=== PATIENT | female | born 1965 | race Caucasian/White ===

== ENCOUNTER → 2017-04-06 | Outpatient (CLI) | payer BC ==
[~2017-04-06] MED LIST: ESTR1TAB24 PO; MAGN400T29 PO; MULT-974 PO; ONDA-42 SL
--- NOTE | 2017-04-07 08:19 | Diagnostic Imaging Report ---
Bilateral screening mammogram 2D views with tomosynthesis The current study was also evaluated with a Computer Aided Detection (CAD) system. Indication: Screening. No current complaints stated on the questionnaire. COMPARISON: 04/04/16. FINDINGS: The breasts are composed of extremely dense parenchyma which may decrease mammographic sensitivity. There are benign-appearing calcifications seen. There is an asymmetry seen along the central aspect of the left cc projection with corresponding tomographic image with an oval lobulated asymmetry measuring 6 mm seen in the central aspect. There are punctate calcifications again seen in the upper aspect of the left breast increased from prior exams which appears to project along the far posterior slightly medial aspect of the left cc projection only partially visualized. IMPRESSION: 1. Extremely dense breasts. 2. Asymmetry along the central aspect of the left cc projection measuring 6 mm. 3. Group of calcifications more prominent compared to prior exams in the upper aspect of the left breast slightly medially along the far posterior aspect. 4. Diagnostic mammogram with magnification views of the calcifications and bilateral ultrasound evaluation is recommended. BI-RADS 0. ACR BI-RADS Category 0: Incomplete. (Needs additional imaging evaluation). Result letter will be mailed to the patient. Note: At least 10% of breast cancer is not imaged by mammography. Dictated by: Dictated on workstation # [id number]
== END ==
LOC: RAD 12:52
PROVIDERS: ATTEND Obstetrics & Gynecology
DX: Z12.31 Encounter for screening mammogram for malignant neoplasm of breast (principal)
CPT/HCPCS: 77067

== ENCOUNTER → 2017-04-11 | Outpatient (CLI) | payer BC ==
--- NOTE | 2017-04-11 08:58 | Diagnostic Imaging Report ---
Left diagnostic mammogram with tomography. COMPARISON: 04/06/2017. INDICATION: Asymmetries along the central aspect of the left CC projection and posterior upper left breast calcifications. FINDINGS: The upper posterior left breast calcifications demonstrate minimal heterogeneity and no definite underlying mass. The asymmetry in the central aspect of the left breast seen on the CC projection is evaluated with focal compression view with no definitive underlying lesion seen. IMPRESSION: Slightly heterogeneity in the group of microcalcifications in the upper posterior aspect of the left breast is seen. Stereotactic biopsy would be recommended. Ultrasound evaluation is pending to check for potential associated mass with the calcifications and to evaluate the rest of the breast dense parenchyma bilaterally. ACR BI-RADS Category 0: Incomplete. (Needs additional imaging evaluation). Result letter will be mailed to the patient. Note: At least 10% of breast cancer is not imaged by mammography. Dictated by: Dictated on workstation # [id number]
--- NOTE | 2017-04-11 10:02 | Diagnostic Imaging Report ---
Bilateral breast ultrasound. INDICATION: Calcifications in the upper aspect of the left breast and asymmetry seen in the central aspect of the left CC projection. Dense breasts. FINDINGS: The four quadrants and the retroareolar region of each breast were scanned. There are simple cysts in the left breast at 1:30 o'clock position, and an 8-mm cyst is seen. There are scattered tiny simple cysts also in the right breast including at 7:30 o'clock position, a 4-mm cyst and a 7-mm cyst at 7 o'clock zone. There is no suspicious mass. IMPRESSION: Scattered bilateral breast cysts. The upper left breast calcifications are slightly concerning given the increase from the previous exam and minimal heterogeneity. Stereotactic biopsy is recommended. The findings and recommendations were explained to the patient. ACR BI-RADS Category 4A: Low suspicion of malignancy. Result letter will be mailed to the patient. Note: At least 10% of breast cancer is not imaged by mammography. Dictated by: Dictated on workstation # [id number]
== END ==
LOC: RAD 07:52
PROVIDERS: ATTEND Obstetrics & Gynecology
DX: N60.11 Diffuse cystic mastopathy of right breast (principal); N60.12 Diffuse cystic mastopathy of left breast; R92.8 Other abnormal and inconclusive findings on diagnostic imaging of breast

== ENCOUNTER → 2017-04-18 | Outpatient (CLI) | payer BC ==
[~2017-04-18] VITALS: Ht 177.8 cm; Wt 77.1 kg
[~2017-04-18] MED LIST changes: +LIDOCAINE 1% INJ 20 ML (XYLOCAINE) VIAL INJ ONE; +LIDOCAINE 1% INJ 20 ML (XYLOCAINE) VIAL ONE; +NS (IVPB) 100 ML ONE
[2017-04-18 10:40] VITALS: BP 134/90
[2017-04-18 11:51] VITALS: BP 128/80
--- NOTE | 2017-04-19 13:31 | Diagnostic Imaging Report ---
EXAMINATION: Vacuum-assisted stereotactic breast biopsy , with clip placement, and specimen radiographs. INDICATION: Left breast calcifications . CONSENT: Informed consent was obtained from the patient. The risks, benefits, potential complications and alternatives were reviewed and all questions answered to the patient's satisfaction. PROCEDURE: The patient is positioned on the stereotactic mammography machine in sitting position. Prior mammograms were reviewed and based on the position of the calcifications, the appropriate the approach is selected. Initial stereotactic mammographic views at -15 and +15 degrees where performed and confirmation of localization of the lesion is performed. The localization is performed with the stereotactic software assistance and confirmed visually to match the area of interest. After satisfactory localization with initial stereotactic mammographic and tomographic images, the biopsy tract approach is selected from lateral to medial with the skin site determined. After sterile preparation and draping, 1% lidocaine was utilized for local anesthesia. After confirming the targeted calcifications along the left breast, multiple vacuum-assisted stereotactic biopsies, with 8-gauge core needles, were performed. The specimen radiograph demonstrates calcifications. Subsequently, a marking clip was placed at the site of the biopsy. Subsequently CC and lateral views mammogram is performed and confirms proper positioning of the clip. The patient tolerated the procedure well with no immediate complications. IMPRESSION: Successful stereotactic vacuum-assisted left breast biopsy for calcifications along the upper. A marking clip was left in place. The specimen radiograph demonstrates the calcifications. Dictated by: Dictated on workstation # [id number]
== END ==
LOC: RAD 10:05
PROVIDERS: ATTEND Surgery
DX: R92.1 Mammographic calcification found on diagnostic imaging of breast (principal)
CPT/HCPCS: 19081

== ENCOUNTER → 2017-10-30 | Outpatient (CLI) | payer BC ==
[~2017-10-30] MED LIST changes: -LIDOCAINE 1% INJ 20 ML (XYLOCAINE) VIAL INJ ONE; -LIDOCAINE 1% INJ 20 ML (XYLOCAINE) VIAL ONE; -NS (IVPB) 100 ML ONE
--- NOTE | 2017-10-30 12:29 | Diagnostic Imaging Report ---
INDICATION: 6 month followup left breast biopsy. COMPARISON: 04/06/2017 and 04/04/2016. TECHNIQUE: Digital diagnostic mammography was performed of the left breast with a Computer Aided Detection (CAD) system. FINDINGS: The left breast is heterogeneously dense limiting the sensitivity of mammography. There is a biopsy clip in the upper outer posterior left breast. There are several remaining punctate calcifications at the biopsy site. The parenchymal pattern is stable. No new mass is seen. No definite malignant-appearing microcalcifications are identified. IMPRESSION: Stable left mammogram postbiopsy. The patient should return in 6 months for bilateral mammography. ACR BI-RADS Category 2: Benign findings. Result letter will be mailed to the patient. Note: At least 10% of breast cancer is not imaged by mammography. Dictated by: Dictated on workstation # [id number]
== END ==
LOC: RAD 09:08
PROVIDERS: ATTEND Obstetrics & Gynecology
DX: R92.8 Other abnormal and inconclusive findings on diagnostic imaging of breast (principal); Z98.890 Other specified postprocedural states

== ENCOUNTER → 2018-02-08 | Outpatient (CLI) | payer BC ==
[~2018-02-08] MED LIST changes: +ACHD5005 PO
--- NOTE | 2018-02-08 11:45 | Diagnostic Imaging Report ---
INDICATION: Palpable lump on the right at the 10 o'clock location and at 3-4 cm from the nipple as well as 12 o'clock location on the left 1-2 cm from the nipple. Comparison is made with prior study from 04/06/2017 and 04/04/2016. Also 10/30/2017 on the left. 2-D and 3-D bilateral diagnostic mammography was performed with CAD. The current study was also evaluated with a Computer Aided Detection (CAD) system. Both breasts are heterogeneously dense, limiting the sensitivity of mammography. There are scattered benign calcifications identified. No mass is identified. No malignant appearing microcalcifications are seen. There is an enlarged dense lymph node in the right axilla which appears increased since prior study. IMPRESSION: BI-RADS zero 1. No mammographic abnormality is identified at the sites of palpable abnormality bilateral breast. Even so, directed sonographic interrogation of these areas is recommended. In addition, ultrasound evaluation of the right axilla is recommended to evaluate the enlarged lymph node. Dictated by: Dictated on workstation # [id number]
--- NOTE | 2018-02-08 12:15 | Diagnostic Imaging Report ---
INDICATION: Palpable lumps bilateral breasts. Correlation is made with diagnostic mammogram earlier the same day. Sonographic interrogation of all 4 quadrants and retroareolar regions of both breasts was performed. On the left, there is a simple appearing cyst at the 12 o'clock location 4 cm from the nipple measuring 7 mm x 12 mm. There is a second cyst at the 1 o'clock location measuring approximately 9 mm in diameter. No solid lesions on the left are identified. On the right, there is a somewhat ill-defined hypoechogenicity at the 10 o'clock location 8 cm from the nipple at the region of the patient's palpable abnormality. This is concerning for a mass. This area measures 1.7 x 2.0 x 1.5 cm. Minimal internal vascularity is present. Adjacent to this at the 10 o'clock location 6 cm from the nipple is a second region of somewhat ill-defined hypoechogenicity. This area measures 1.0 x 1.6 x 1.1 cm. Evaluation of the right axilla does show an enlarged lymph node measuring 3.1 x 2.2 cm. Impression: BI-RADS category 4. 1. Simple cysts at the 12 and 1 o'clock location of the left breast, likely accounting for the palpable abnormalities. No solid lesion on the left is identified. 2. Ill-defined hypoechogenicity 10 o'clock location of the right breast 8 cm from the nipple at the site of the patient's palpable abnormality. This is concerning for a breast mass and tissue sampling is recommended. This would be amenable to ultrasound-guided biopsy. There is a second region adjacent to this which is smaller and ill-defined. The possibility of a smaller satellite lesion cannot entirely be excluded. 3. Enlarged right axillary lymph node. A metastatic node cannot be excluded. This too would be amenable to ultrasound-guided core biopsy. Report was faxed to office of Dr. Claros by rom at 12:15 p.m. Dictated by: Dictated on workstation # [id number]
== END ==
LOC: RAD 08:34
PROVIDERS: ATTEND Obstetrics & Gynecology
DX: N60.02 Solitary cyst of left breast (principal); N63.10 Unspecified lump in the right breast, unspecified quadrant; R59.0 Localized enlarged lymph nodes
CPT/HCPCS: 77066

== ENCOUNTER → 2018-02-15 | Outpatient (CLI) | payer BC ==
[~2018-02-15] VITALS: Ht 177.8 cm; Wt 77.1 kg
[~2018-02-15] MED LIST changes: +LIDOCAINE 1% INJ 20 ML 20 ML VIAL INJ ONE; +LIDOCAINE 1% INJ 20 ML 20 ML VIAL ONE
[2018-02-15 08:55] VITALS: BP 128/61
[2018-02-15 10:10] VITALS: BP 119/67
--- NOTE | 2018-02-15 19:23 | Diagnostic Imaging Report ---
INDICATION: Right breast mass. EXAMINATION: Ultrasound-guided biopsy of the right breast. FINDINGS: The recent breast ultrasound exam performed on 02/08/2018 noted an ill-defined mass in the 10 o'clock position of the right breast. Following aseptic preparation of the skin and administration of local anesthesia, this area was biopsied using a 14-gauge Bard core biopsy needle. Five passes were made. Following the procedure, a clip was inserted into the biopsy site. The patient tolerated the procedure well. An ultrasound-guided biopsy of the enlarged right axillary lymph node is pending. IMPRESSION: There has been a successful ultrasound-guided biopsy of the mass in the right breast. A final pathology report is pending. Dictated by: Dictated on workstation # [id number]
--- NOTE | 2018-02-15 19:29 | Diagnostic Imaging Report ---
INDICATION: Right axillary mass. EXAMINATION: Ultrasound-guided biopsy. FINDINGS: The bilateral breast ultrasound exam performed on 02/08/2018 noted a mass in the 8 o'clock position of the right breast and enlarged right axillary lymph node. The mass in the 8 o'clock position of the right breast was biopsied earlier today. Findings aseptic preparation of the skin and administration of local anesthesia, the lymph node was biopsied using ultrasound guidance. A 14-gauge Achieve needle was advanced into the lymph node and four core biopsies were obtained. The patient tolerated the procedure well and was dismissed in good condition. IMPRESSION: There has been a successful ultrasound-guided biopsy of the enlarged lymph node in the right axilla. A final pathology report is pending. Dictated by: Dictated on workstation # [id number]
--- NOTE | 2018-02-16 22:40 | Diagnostic Imaging Report ---
Below diagnostic right mammogram indication right breast biopsy EXAMINATION: Unilateral right breast digital diagnostic mammogram with CAD. The current study was also evaluated with a Computer Aided Detection (CAD) system. FINDINGS: Patient underwent an ultrasound-guided biopsy of the mass in the right breast identified on the prior ultrasound exam of 02/08/2018. There is now a stereotactic clip in the region of the mass in the 8 o'clock position. The overall appearance of the breasts has not changed significantly otherwise. There is distortion of the tissues about the enlarged right axillary lymph node. This lymph node was also biopsied earlier today. IMPRESSION: There is now a stereotactic clip in the region of the previously noted mass in the right breast. A final pathology report is pending. Dictated by: Dictated on workstation # [id number]
== END ==
LOC: RAD 08:27
PROVIDERS: ATTEND Surgery
DX: C50.411 Malignant neoplasm of upper-outer quadrant of right female breast (principal); C77.9 Secondary and unspecified malignant neoplasm of lymph node, unspecified
CPT/HCPCS: 19083; 19084; 88305; 88360

== ENCOUNTER → 2018-02-20 | Outpatient (CLI) | payer BC ==
[~2018-02-20] MED LIST changes: -LIDOCAINE 1% INJ 20 ML 20 ML VIAL INJ ONE; -LIDOCAINE 1% INJ 20 ML 20 ML VIAL ONE
--- NOTE | 2018-02-20 13:56 | Diagnostic Imaging Report ---
INDICATION: Right breast carcinoma. TECHNIQUE: Serum blood glucose level at the time of injection was 106 mg/dL. The patient was administered 12 mCi of F-18 FDG intravenously administered in the left antecubital location, and whole-body PET imaging was performed. In addition, noncontrast CT was performed for attenuation correction and anatomic correlation. COMPARISON: No prior CT or prior PET imaging is available for comparison. FINDINGS: A symmetric uptake of activity within the brain is identified. Normal physiologic activity within the soft tissues of the neck is noted. There is some brown fat uptake identified in the supraclavicular regions. There is some uptake of activity in the superior mediastinum adjacent to the great vessels. No CT correlate is identified, and this most likely represents brown fat activity as well. There is uptake identified in an enlarged right axillary lymph node with SUV max of 3.5. This lymph node measures 4.0 x 2.1 cm and most likely represents the recently biopsied right axillary lymph node. There are also two small foci of increased uptake in the lateral portion of the right breast. The larger lesion has SUV max of approximately 3.6. This likely corresponds to the patient's known breast carcinoma. No definite suspicious hilar or mediastinal uptake is seen. Pulmonary parenchyma is unremarkable. Physiologic uptake within the abdomen and pelvis is identified. Nonspecific uptake is identified in the region of the thenar eminence of the left hand, but no CT correlate is identified. Bilateral lower extremities are unremarkable. IMPRESSION: 1. Increased uptake is identified in the lateral right breast consistent with patient's known right breast carcinoma. There is uptake within an enlarged right axillary lymph node consistent with known recently biopsied metastatic right axillary lymph node. No other suspicious regions of FDG uptake are identified. Dictated by: Dictated on workstation # [id number]
== END ==
LOC: RAD 09:59
PROVIDERS: ATTEND Surgery
DX: C50.911 Malignant neoplasm of unspecified site of right female breast (principal); C96.9 Malignant neoplasm of lymphoid, hematopoietic and related tissue, unspecified

== ENCOUNTER 2018-02-22 05:38 | Outpatient (CLI) | payer BC ==
[~2018-02-22] VITALS: Ht 177.8 cm; Wt 77.1 kg
[~2018-02-22 05:38] MED LIST changes: -ACHD5005 PO
[2018-02-23] MEDS ORDERED: ACHD5005 PO (10:17)
== END 2018-02-22 12:17 ==
LOC: PREOP 05:38
PROVIDERS: ATTEND Surgery
DX: Z01.818 Encounter for other preprocedural examination (principal); C50.911 Malignant neoplasm of unspecified site of right female breast

== ENCOUNTER → 2018-02-22 | Outpatient (CLI) | payer BC | LOC: CARD 08:51 | PROVIDERS: ATTEND Surgery | DX: C50.911 Malignant neoplasm of unspecified site of right female breast (principal) | CPT/HCPCS: 93306 ==

== ENCOUNTER 2018-02-23 09:55 | Day surgery (SDC) | payer BC ==
[~2018-02-23] VITALS: Ht 177.8 cm; Wt 77.1 kg
--- OUTSIDE RECORDS SUMMARY | 2018-02-23 09:59 | XMS REPORT ---
Author Júnior Hope [facility] Address [address] [place], [place] [address] Care Team Providers Care Mule Spinner Name Role Phone Júnior Echavarria PCP Unavailable Allergies and Adverse Reactions Name Reaction Notes NO KNOWN DRUG ALLERGIES Plan of Treatment Planned Activity Comments Planned Date Planned Time Plan/Goal CT HEAD/BRAIN W/O & W/DYE 12/10/2013 12:00 AM Medications Active Name Start Date Estimated Completion Date SIG Comments estradiol 1 mg oral tablet Maxalt 10 mg oral tablet 08/28/2015 take 1 tablet (10 mg) by oral route once, may repeat at 2 hour intervals; do not exceed 30 mg in 24 hours Name Start Date Expiration Date SIG Comments Augmentin 500-125 mg oral tablet 06/14/2011 06/21/2011 take 1 tablet by oral route every 12 hours for 7 days valacyclovir 1 gram oral tablet 06/05/2012 06/12/2012 take 1 tablet (1,000 mg ) by oral route every 8 hours for 7 days prednisone 20 mg oral tablet 06/05/2012 06/10/2012 take 1 tablet (20 mg) by oral route once daily for 5 days Augmentin 500-125 mg oral tablet 08/01/2012 08/08/2012 take 1 tablet by oral route every 12 hours for 7 days amoxicillin 500 mg oral capsule 10/25/2012 11/04/2012 take 1 capsule (500 mg) by oral route 3 times per day for 10 days Cipro 500 mg oral tablet 07/16/2014 07/21/2014 take 1 tablet (500 mg) by oral route every 12 hours for 5 days azithromycin 500 mg oral tablet 10/25/2014 11/01/2014 take 1 tablet (500 mg) by oral route once daily x 7 days Ventolin HFA 90 mcg/actuation inhalation HFA aerosol inhaler 10/25/20142014 inhale 1 puff by inhalation route every 4-6 hours as needed for 7 days Discontinued Name Start Date Discontinued Date SIG Comments nabumetone 500 mg oral tablet 03/29/2011 06/09/2011 take 1 tablet (500 mg) by oral route 2 times per day with food diclofenac sodium 75 mg oral tablet,delayed release (DR/EC) 06/14/2011 take 1 tablet (75 mg) by oral route daily Maxalt 10 mg oral tablet 01/10/2012 10/22/2012 take 1 tablet (10 mg) by oral route once, may repeat at 2 hour intervals; do not exceed 30 mg in 24 hours meloxicam 15 mg oral tablet 10/04/2012 10/22/2012 take 1 tablet (15 mg) by oral route once daily albuterol sulfate 90 mcg/actuation inhalation HFA aerosol inhaler 10/22/2012 inhale 1 - 2 puffs by inhalation route every 6 hours as needed promethazine-codeine 6.25-10 mg/5 mL oral syrup 10/22/2012 05/22/2013 take 5 milliliters by oral route every 4-6 hours as needed, not to exceed 30 mL in 24 hours Sneha-D 12 Hour 60-120 mg oral tablet extended release 12 hr 10/25/201202/28 take 1 tablet by oral route 2 times a day as needed prednisone 20 mg oral tablet 12/11/2013 02/28/2014 take 3 tablets daily x2 days then 2 tablets daily x2 days then 1 tablet daily x4 days. promethazine 25 mg oral tablet 07/16/2014 10/25/2014 take 1 tablet (25 mg) by oral route every 6 hours as needed Lomotil 2.5-0.025 mg oral tablet 07/16/2014 10/25/2014 take 2 tablets (5 mg) by oral route 3 times per day as needed amoxicillin-pot clavulanate 500-125 mg oral tablet 08/28/2015 03/15/2016 take 1 tablet by oral route every 12 hours fexofenadine-pseudoephedrine 60-120 mg oral tablet extended release 12 hr 03/15/2016 take 1 tablet by oral route 2 times per day as needed Problem List Description Status Onset Migraine Active Numbness and Tingling Active 2010 Pain in joint; shoulder region Active Vital Signs Date Time BP-Sys(mm[Hg] BP-Monica(mm[Hg]) HR(bpm) RR(rpm) Temp WT HT HC BMI BSA BMI Percentile O2 Sat(%) 03/15/2016 10:21:00 AM 130 mmHg 76 mmHg 93 bpm 20 rpm 98.5 F 169 lbs 68 in 25.70 kg/m2 1.92 m2 99 % 08/28/2015 10:23:00 AM 128 mmHg 66 mmHg 76 bpm 16 rpm 97.3 F 172.187 lbs 68 in 26.1808 kg/m 1.9358 m 97 % 08/18/2015 10:37:00 AM 122 mmHg 64 mmHg 75 bpm 18 rpm 97.9 F 173 lbs 69 in 25.55 kg/m2 1.95 m2 99 % 10/25/2014 10:28:00 AM 128 mmHg 92 mmHg 108 bpm 20 rpm 98.3 F 169.8 lbs 69 in 25.0748 kg/m 1.9364 m 97 % 07/16/2014 9:22:00 AM 124 mmHg 70 mmHg 77 bpm 16 rpm 98.2 F 170 lbs 69 in 25.10 kg/m2 1.94 m2 100 % 02/28/2014 10:37:00 AM 126 mmHg 68 mmHg 97 bpm 18 rpm 97.2 F 170 lbs 69 in 25.1044 kg/m 1.9375 m 98 % 12/11/2013 10:13:00 AM 136 mmHg 80 mmHg 88 bpm 18 rpm 96.8 F 168.25 lbs 69 in 24.85 kg/m2 1.93 m2 99 % 12/10/2013 10:25:00 AM 140 mmHg 80 mmHg 90 bpm 14 rpm 97.9 F 171.125 lbs 69 in 25.2705 kg/m 1.9439 m 100 % 07/17/2013 10:08:00 AM 126 mmHg 82 mmHg 103 bpm 18 rpm 97.8 F 163.375 lbs 69 in 24.13 kg/m2 1.90 m2 99 % 07/17/2013 10:08:00 AM 124 mmHg 68 mmHg 05/22/2013 10:14:00 AM 138 mmHg 80 mmHg 95 bpm 18 rpm 96.7 F 166.25 lbs 69 in 24.5506 kg/m 1.916 m 98 % 10/25/2012 8:31:00 AM 124 mmHg 64 mmHg 68 bpm 18 rpm 97.6 F 160.125 lbs 69 in 23.65 kg/m2 1.88 m2 10/22/2012 11:04:00 AM 100 mmHg 72 mmHg 112 bpm 20 rpm 98.6 F 161 lbs 69 in 23.7753 kg/m 1.8855 m 97 % 10/04/2012 8:50:00 AM 126 mmHg 64 mmHg 64 bpm 18 rpm 97.8 F 166.375 lbs 69 in 24.57 kg/m2 1.92 m2 09/12/2012 11:29:00 AM 138 mmHg 74 mmHg 68 bpm 18 rpm 97.4 F 165.25 lbs 69 in 24.4029 kg/m 1.9103 m 08/01/2012 11:46:00 AM 122 mmHg 64 mmHg 64 bpm 18 rpm 98.8 F 166 lbs 69 in 24.51 kg/m2 1.91 m2 06/05/2012 10:11:00 AM 118 mmHg 60 mmHg 60 bpm 16 rpm 99.2 F 164 lbs 69 in 24.2183 kg/m 1.903 m 01/10/2012 8:31:00 AM 122 mmHg 60 mmHg 62 bpm 18 rpm 97.8 F 161 lbs 69 in 23.78 kg/m2 1.89 m2 06/14/2011 10:46:00 AM 128 mmHg 70 mmHg 72 bpm 18 rpm 99 F 160 lbs 03/29/2011 8:27:00 AM 120 mmHg 70 mmHg 82 bpm 16 rpm 98.1 F 160.375 lbs 69 in 23.68 kg/m2 1.88 m2 100 % Social History Name Description Comments Engaged 2 years college Denies illicit substance abuse Alcohol Use - Occasional Heavy Amount of Exercise (4 or more times weekly) Loan documentation Did not serve in Children Living with significant other in a house High school graduate Tobacco Never smoker History of Procedures Date Ordered Description Order Status 06/14/2011 12:00 AM Decadron 8 mg [facility]#[id number] Reviewed 06/14/2011 12:00 AM Depo-Medrol 80mg [place]#[id number] Reviewed 08/18/2015 12:00 AM Decadron, Per 1 Mg [facility]# [address]-26 Reviewed 08/18/2015 12:00 AM Depo-Medrol 40mg Reviewed 07/12/2011 12:00 AM MUSCLE TEST ONE LIMB Reviewed 07/12/2011 12:00 AM NERVE CONDUCTION, MOTOR Reviewed 07/12/2011 12:00 AM NERVE CONDUCTION, SENSORY Reviewed 03/15/2016 12:00 AM Decadron, Per 1 Mg [facility]# [address]-99 Reviewed 03/15/2016 12:00 AM Depo-Medrol, Per 80 Mg [place]#[address]-10 Reviewed 03/15/2016 12:00 AM Bicillin LA, 1.2 million units [facility]# [address]-80 Reviewed 08/01/2012 12:00 AM THER/PROPH/DIAG INJ SC/IM Reviewed 08/01/2012 12:00 AM Decadron 1 mg [facility]#[id number] ([place]) Reviewed 08/01/2012 12:00 AM Depo-Medrol 80 mg [facility]#[id number]-Inzqxjac Reviewed 09/12/2012 12:00 AM THER/PROPH/DIAG INJ SC/IM Reviewed 09/12/2012 12:00 AM Toradol 60 Mg [facility]#9305-7989-29 Reviewed 09/12/2012 12:00 AM Phenergan, Up to 50 Mg [facility]#5417-4498-25 Reviewed 10/22/2012 12:00 AM THER/PROPH/DIAG INJ SC/IM Reviewed 10/22/2012 12:00 AM Decadron, Per 1 Mg ND# [address]-90 Reviewed 10/22/2012 12:00 AM Depo-Medrol, Per 80 Mg ND#4953-5267-68 Reviewed 05/22/2013 12:00 AM THER/PROPH/DIAG INJ SC/IM Reviewed 05/22/2013 12:00 AM Phenergan, 50 Mg [facility]#3540-3135-24 Reviewed 05/22/2013 12:00 AM Toradol 60 Mg ND#4170-5392-78 Reviewed 07/17/2013 12:00 AM THER/PROPH/DIAG INJ SC/IM Reviewed 07/17/2013 12:00 AM Decadron, Per 1 Mg ND# [address]-98 Reviewed 07/17/2013 12:00 AM Depo-Medrol, Per 80 Mg [facility]#0648-0837-66 Reviewed 07/17/2013 12:00 AM Phenergan, Up to 50 Mg [facility]#9943-3457-09 Reviewed 02/28/2014 12:00 AM THER/PROPH/DIAG INJ SC/IM Reviewed 02/28/2014 12:00 AM Kenalog 40 Mg Im/C'hai Reviewed 10/25/2014 12:00 AM THER/PROPH/DIAG INJ SC/IM Reviewed 10/25/2014 12:00 AM Depo-Medrol 40mg Reviewed 10/25/2014 12:00 AM Decadron, Per 1 Mg [facility]# [address]-35 Reviewed 10/25/2014 12:00 AM Rocephin 1 gram [facility]#5889-2724-09 Reviewed Results Summary Data and Description Results 03/29/2011 8:33 AM Colonoscopy-Women and Men over 50 Declined Mammogram -Women over 40 Abnormal Pap Smear Negative History Of Immunizations Name Date Admin Mfg Name Mfg Code Trade Name Lot# Route Inj Vis Given Vis Pub CVX Influenza 06/20/2014 Not Entered NE Not Entered Not Entered Not Entered 09/11/2015 09/11/2015 141 History of Past Illness Name Date of Onset Comments Migraine Numbness and Tingling 2010 elbow & hand Pain in joint; shoulder region Sacroiliitis Mar 29 2011 8:31AM Sinusitis, Acute Jun 14 2011 10:42AM Rhinitis, Allergic Jun 14 2011 10:42AM Pain in limb Jul 12 2011 10:15AM Skin Sensation Disturbance Jul 12 2011 10:15AM Muscle weakness Jul 12 2011 10:15AM Ulnar nerve entrapment Jul 12 2011 10:15AM Migraine Jan 10 2012 8:32AM Herpes Zoster Jun 05 2012 10:12AM Sinusitis, Acute Aug 01 2012 11:48AM Classical Migraine Sep 12 2012 11:31AM Right knee pain Oct 04 2012 8:52AM Varicose Veins Of Lower Extremities With Pain Oct 04 2012 8:52AM Cough Oct 22 2012 11:08AM Upper Respiratory Infections Oct 22 2012 11:08AM Wheezing(symptom) Oct 22 2012 11:08AM Sinusitis, Acute Oct 25 2012 8:33AM Upper Respiratory Infections Oct 25 2012 8:33AM Migraine May 22 2013 10:16AM Migraine Jul 17 2013 10:12AM Eustachian Tube Dysfunction Jul 17 2013 10:12AM Skin Sensation Disturbance (Numbness) Dec 11 2013 10:15AM Headache Dec 10 2013 10:32AM Skin Sensation Disturbance Dec 10 2013 10:32AM Upper Respiratory Infections Feb 28 2014 10:39AM Abdominal Pain, Epigastric Jul 16 2014 9:24AM Viral Gastroenteritis Jul 16 2014 9:24AM Bronchitis, Acute Oct 25 2014 10:32AM Sinusitis, Acute Oct 25 2014 10:32AM Wheezing Oct 25 2014 10:32AM Acute URI Aug 18 2015 10:39AM Acute bronchitis, unspecified organism Aug 28 2015 10:27AM Acute maxillary sinusitis, recurrence not specified Mar 15 2016 10:23AM Payers Insurance Name Company Name Plan Name Plan Number Policy Number Policy Group Number Start Date [facility] [id number] Tuesday, 2011 History of Encounters Visit Date Visit Type Provider 03/15/2016 Office visit Júnior Echavarria DO 08/28/2015 Office visit Júnior Echavarria DO 08/18/2015 Office visit Yanet Eaton [employer] 10/25/2014 Office visit Madyson Pulido [employer] 07/16/2014 Office visit Júnior Echavarria DO 02/28/2014 Office visit Yanet Eaton [employer] 12/11/2013 Office visit Yanet Eaton [employer] 12/10/2013 Office visit Yanet Eaton [employer] 07/17/2013 Office visit Yanet Eaton [employer] 05/22/2013 Office visit Yanet Eaton [employer] 10/25/2012 Office visit Kerry Galarza [employer] 10/22/2012 Office visit Kerry Galarza [employer] 10/04/2012 Office visit Yanet Eaton [employer] 09/12/2012 Office visit Yanet Eaton [employer] 08/01/2012 Office visit Yanet Eaton [employer] 06/05/2012 Office visit Júnior Echavarria DO 01/10/2012 Office visit Júnior Echavarria DO 07/14/2011 Hospital Tara Mishra MD 07/12/2011 Procedures Mg Sorto MD 06/14/2011 Office visit Júnior Echavarria DO 03/29/2011 Office visit Júnior Echavarria DO
--- OUTSIDE RECORDS SUMMARY | 2018-02-23 10:00 | XMS REPORT ---
Author Author Yanet Eaton [facility] Address [address] [facility] [address] [place], [place] [address] Care Team Providers Care Industrial Health And Safety Professor Name Role Phone Yanet Eaton PCP Unavailable Júnior Echavarria PreferredProvider Unavailable Allergies and Adverse Reactions Name Reaction Notes NO KNOWN DRUG ALLERGIES Plan of Treatment Planned Activity Comments Planned Date Planned Time Plan/Goal CT scan of head with and without contrast 12/10/2013 12:00 AM Medications Active Name Start Date Estimated Completion Date SIG Comments estradiol 1 mg oral tablet Maxalt 10 mg oral tablet 08/28/2015 take 1 tablet (10 mg) by oral route once, may repeat at 2 hour intervals; do not exceed 30 mg in 24 hours fluconazole 100 mg oral tablet 09/28/2016 take 1 tablet (100 mg) by oral route every other day benzonatate 200 mg oral capsule 09/28/2016 take 1 capsule (200 mg) by oral route 3 times per day as needed for cough Name Start Date Expiration Date SIG Comments [...] 4-6 hours as needed for 7 days amoxicillin 500 mg oral tablet 09/28/2016 10/05/2016 take 1 tablet (500 mg) by oral route every 12 hours for 7 days Discontinued Name Start Date [...] Onset Migraine Active Numbness and Tingling Active 2011 Pain in joint; shoulder region Active Vital Signs Date Time BP-Sys(mm[Hg] BP-Monica(mm[Hg]) HR(bpm) RR(rpm) Temp WT HT HC BMI BSA BMI Percentile O2 Sat(%) 10/12/2016 11:24:00 AM 122 mmHg 72 mmHg 71 bpm 18 rpm 97.9 F 169 lbs 68 in 25.70 kg/m2 1.92 m2 100 % 09/28/2016 9:48:00 AM 122 mmHg 70 mmHg 82 bpm 16 rpm 98.4 F 169 lbs 68 in 25.6961 kg/m 1.9178 m 98 % 03/15/2016 10:21:00 AM 130 mmHg 76 mmHg [...] Status 06/14/2011 12:00 AM Decadron 8 mg [facility]#[id number] Reviewed 06/14/2011 12:00 AM Depo-Medrol 80mg [facility]#[id number] Reviewed 08/18/2015 12:00 AM Decadron, Per 1 Mg [facility]# [address]-41 Reviewed 08/18/2015 12:00 AM Depo-Medrol 40mg Reviewed 07/12/2011 12:00 AM MUSCLE TEST ONE LIMB Reviewed 07/12/2011 12:00 AM NERVE CONDUCTION, MOTOR Reviewed 07/12/2011 12:00 AM NERVE CONDUCTION, SENSORY Reviewed 03/15/2016 12:00 AM Decadron, Per 1 Mg [facility]# [address]-53 Reviewed 03/15/2016 12:00 AM Depo-Medrol, Per 80 Mg [facility]#[address]-25 Reviewed 03/15/2016 12:00 AM Bicillin LA, 1.2 million units [facility]# [address]-02 Reviewed 10/12/2016 12:00 AM Decadron, Per 1 Mg [facility]# [address]-79 Reviewed 10/12/2016 12:00 AM Depo-Medrol 40mg Injection Reviewed 08/01/2012 12:00 AM THER/PROPH/DIAG INJ SC/IM Reviewed 08/01/2012 12:00 AM Decadron 1 mg [facility]#[id number] ([place]) Reviewed 08/01/2012 12:00 AM Depo-Medrol 80 mg [facility]#[id number]-Crplgrck Reviewed 09/12/2012 12:00 AM THER/PROPH/DIAG INJ SC/IM Reviewed 09/12/2012 12:00 AM Toradol 60 Mg [facility]#3156-3819-99 Reviewed 09/12/2012 12:00 AM Phenergan, Up to 50 Mg [facility]#2909-3456-15 Reviewed 10/22/2012 12:00 AM THER/PROPH/DIAG INJ SC/IM Reviewed 10/22/2012 12:00 AM Decadron, Per 1 Mg [facility]# [address]-58 Reviewed 10/22/2012 12:00 AM Depo-Medrol, Per 80 Mg [facility]#4726-2568-86 Reviewed 05/22/2013 12:00 AM THER/PROPH/DIAG INJ SC/IM Reviewed 05/22/2013 12:00 AM Phenergan, 50 Mg [facility]#5472-6210-79 Reviewed 05/22/2013 12:00 AM Toradol 60 Mg [facility]#1461-6236-99 Reviewed 07/17/2013 12:00 AM THER/PROPH/DIAG INJ SC/IM Reviewed 07/17/2013 12:00 AM Decadron, Per 1 Mg [facility]# [address]-68 Reviewed 07/17/2013 12:00 AM Depo-Medrol, Per 80 Mg [facility]#6117-6456-19 Reviewed 07/17/2013 12:00 AM Phenergan, Up to 50 Mg [facility]#5048-5970-64 Reviewed 02/28/2014 12:00 AM THER/PROPH/DIAG INJ SC/IM Reviewed 02/28/2014 12:00 AM Kenalog 40 Mg Im/C'hai Reviewed 10/25/2014 12:00 AM THER/PROPH/DIAG INJ SC/IM Reviewed 10/25/2014 12:00 AM Depo-Medrol 40mg Reviewed 10/25/2014 12:00 AM Decadron, Per 1 Mg [facility]# [address]-73 Reviewed 10/25/2014 12:00 AM Rocephin 1 gram [facility]#6084-0828-93 Reviewed Results Summary Data and Description Results 03/29/2011 8:33 AM Colonoscopy-Women and Men over 50 Declined Mammogram -Women over 40 Abnormal Pap Smear Negative History Of Immunizations Name Date Admin Mfg Name Mf Code Trade Name Lot# Route Inj Vis Given Vis Pub CVX Influenza 06/20/2014 Not Entered NE Not Entered Not Entered Not Entered 09/11/2016 09/11/2016 141 History of Past Illness Name Date [...] recurrence not specified Mar 15 2016 10:23AM Pharyngitis, Acute Sep 28 2016 9:50AM Acute upper respiratory infection Oct 12 2016 11:26AM Payers Insurance Name Company Name Plan Name Plan Number Policy Number Policy Group Number Start Date [facility] [id number] Tuesday, 2011 History of Encounters Visit Date Visit Type Provider 10/12/2016 Office visit Yanet Eaton [employer] 09/28/2016 Office visit Júnior Echavarria DO 03/15/2016 Office visit Júnior Echavarria DO 08/28/2015 Office visit Júnior Echavarria DO 08/18/2015 Office visit Yanet Eaton [employer] 10/25/2014 Office visit Madyson Pulido [employer] 07/16/2014 Office visit Júnior Echavarria DO 02/28/2014 Office visit Yanet Eaton [employer] 12/11/2013 Office visit Yanet Eaton [employer] 12/10/2013 Office visit Yanet Eaton [employer] 07/17/2013 Office visit Yanet Eaton [employer] 05/22/2013 Office visit Yanet Eaton [employer] 10/25/2012 Office visit Kerry Galarza [employer] 10/22/2012 Office visit Kerry Galarza [employer] 10/04/2012 Office visit Yanet Eaton [employer] 09/12/2012 Office visit Yanet Eaton [employer] 08/01/2012 Office visit Yanet Eaton [employer] 06/05/2012 Office visit Júnior Echavarria DO 01/10/2012 Office visit Júnior Echavarria DO 07/14/2011 Hospital Tara Mishra MD 07/12/2011 Procedures Mg Sorto MD 06/14/2011 Office visit Júnior Echavarria DO 03/29/2011 Office visit Júnior Echavarria DO
--- OUTSIDE RECORDS SUMMARY | 2018-02-23 10:01 | XMS REPORT ---
Author Author Yanet Eaton [facility] Address [address] [address] [place], [place] [address] Care Team Providers Care Fudger Name Role Phone Yanet Eaton PCP Unavailable Júnior Echavarria PreferredProvider Unavailable Allergies and Adverse Reactions Name Reaction Notes NO KNOWN DRUG ALLERGIES Plan of Treatment Planned Activity Comments Planned Date Planned Time Plan/Goal CT scan of head with and without contrast 12/10/2013 12:00 AM Medications Active Name Start Date Estimated Completion Date SIG Comments estradiol 1 mg oral tablet fluconazole 100 mg oral tablet 09/28/2016 take 1 tablet (100 mg) by oral route every other day benzonatate 200 mg oral capsule 09/28/2016 take 1 capsule (200 mg) by oral route 3 times per day as needed for cough Maxalt 10 mg Oral tablet 02/03/2017 take 1 tablet (10 mg) by oral [...] Status 06/14/2011 12:00 AM Decadron 8 mg [facility]#[id number] Reviewed 06/14/2011 12:00 AM Depo-Medrol 80mg [facility]#[id number] Reviewed 08/18/2015 12:00 AM Decadron, Per 1 Mg [facility]# [address]-81 Reviewed 08/18/2015 12:00 AM Depo-Medrol 40mg Reviewed 07/12/2011 12:00 AM MUSCLE TEST ONE LIMB Reviewed 07/12/2011 12:00 AM NERVE CONDUCTION, MOTOR Reviewed 07/12/2011 12:00 AM NERVE CONDUCTION, SENSORY Reviewed 03/15/2016 12:00 AM Decadron, Per 1 Mg [facility]# [address]-84 Reviewed 03/15/2016 12:00 AM Depo-Medrol, Per 80 Mg [facility]#[address]-71 Reviewed 03/15/2016 12:00 AM Bicillin LA, 1.2 million units [facility]# [address]-28 Reviewed 10/12/2016 12:00 AM Decadron, Per 1 Mg [facility]# [address]-10 Reviewed 10/12/2016 12:00 AM Depo-Medrol 40mg Injection Reviewed 08/01/2012 12:00 AM THER/PROPH/DIAG INJ SC/IM Reviewed 08/01/2012 12:00 AM Decadron 1 mg [facility]#[id number] ([place]) Reviewed 08/01/2012 12:00 AM Depo-Medrol 80 mg [facility]#[id number]-Eccqxahl Reviewed 09/12/2012 12:00 AM THER/PROPH/DIAG INJ SC/IM Reviewed 09/12/2012 12:00 AM Toradol 60 Mg [facility]#8650-7733-35 Reviewed 09/12/2012 12:00 AM Phenergan, Up to 50 Mg [facility]#2558-2977-57 Reviewed 10/22/2012 12:00 AM THER/PROPH/DIAG INJ SC/IM Reviewed 10/22/2012 12:00 AM Decadron, Per 1 Mg [facility]# [address]-39 Reviewed 10/22/2012 12:00 AM Depo-Medrol, Per 80 Mg [facility]#5324-8820-05 Reviewed 05/22/2013 12:00 AM THER/PROPH/DIAG INJ SC/IM Reviewed 05/22/2013 12:00 AM Phenergan, 50 Mg [facility]#7432-2683-58 Reviewed 05/22/2013 12:00 AM Toradol 60 Mg [facility]#9659-8255-67 Reviewed 07/17/2013 12:00 AM THER/PROPH/DIAG INJ SC/IM Reviewed 07/17/2013 12:00 AM Decadron, Per 1 Mg [facility]# [address]-99 Reviewed 07/17/2013 12:00 AM Depo-Medrol, Per 80 Mg [facility]#8519-3925-23 Reviewed 07/17/2013 12:00 AM Phenergan, Up to 50 Mg [facility]#1411-7809-38 Reviewed 02/28/2014 12:00 AM THER/PROPH/DIAG INJ SC/IM Reviewed 02/28/2014 12:00 AM Kenalog 40 Mg Im/C'hai Reviewed 10/25/2014 12:00 AM THER/PROPH/DIAG INJ SC/IM Reviewed 10/25/2014 12:00 AM Depo-Medrol 40mg Reviewed 10/25/2014 12:00 AM Decadron, Per 1 Mg [facility]# [address]-53 Reviewed 10/25/2014 12:00 AM Rocephin 1 gram [facility]#4486-6215-56 Reviewed Results Summary Date and Description Results 03/29/2011 8:33 AM Colonoscopy-Women [...] Policy Number Policy Group Number Start Date [facility] [id number] Tuesday, 2011 History of Encounters Visit Date Visit Type Provider 10/12/2016 Office visit Yanet Eaton [employer]EL[employer] 09/28/2016 Office visit Júnior Echavarria DO 03/15/2016 Office visit Júnior Echavarria DO 08/28/2015 Office visit Júnior Echavarria DO 08/18/2015 Office visit Yanet Eaton [employer]EL[employer] 10/25/2014 Office visit Madyson Pulido [employer] 07/16/2014 Office visit Júnior Echavarria DO 02/28/2014 Office visit Yanet Eaton [employer]EL[employer] 12/11/2013 Office visit Yanet Eaton [employer]ELOPER 12/10/2013 Office visit Yanet Eaton [employer]ELOPER 07/17/2013 Office visit Yanet Eaton [employer]EL[employer] 05/22/2013 Office visit Yanet Eaton [employer]ELOPER 10/25/2012 Office visit Kerry Galarza [employer]ELOPER 10/22/2012 Office visit Kerry Galarza [employer] DEVELOPER 10/04/2012 Office visit Yanet Eaton [employer]ELOPER 09/12/2012 Office visit Yanet Eaton [employer]ELOPER 08/01/2012 Office visit Yanet Eaton [employer] 06/05/2012 Office visit Júnior Echavarria DO 01/10/2012 Office visit Júnior Echavarria DO 07/14/2011 Hospital Tara Mishra MD 07/12/2011 Procedures Mg Sorto MD 06/14/2011 Office visit Júnior Ehcavarria DO 03/29/2011 Office visit Júnior Echavarria DO
--- OUTSIDE RECORDS SUMMARY | 2018-02-23 10:01 | XMS REPORT ---
Author Author Júnior Echavarria [facility] Address [address] [place], [place] [address] Care Team Providers Care Swimming Pool Salesperson Name Role Phone Júnior Echavarria PCP Unavailable Júnior Echavarria PreferredProvider Unavailable Allergies [...] HC BMI BSA BMI Percentile O2 Sat(%) 09/28/2016 9:48:00 AM 122 mmHg 70 mmHg 82 bpm 16 rpm 98.4 F 169 lbs 68 in 25.70 kg/m2 1.92 m2 98 % 03/15/2016 10:21:00 AM 130 mmHg 76 mmHg 93 bpm 20 rpm 98.5 F 169 lbs 68 in 25.6961 kg/m 1.9178 m 99 % 08/28/2015 10:23:00 AM 128 mmHg 66 mmHg 76 bpm 16 rpm 97.3 F 172.187 lbs 68 in 26.18 kg/m2 1.94 m2 97 % 08/18/2015 10:37:00 AM 122 mmHg 64 mmHg 75 bpm 18 rpm 97.9 F 173 lbs 69 in 25.5474 kg/m 1.9546 m 99 % 10/25/2014 10:28:00 AM 128 mmHg 92 mmHg 108 bpm 20 rpm 98.3 F 169.8 lbs 69 in 25.07 kg/m2 1.94 m2 97 % 07/16/2014 9:22:00 AM 124 mmHg 70 mmHg 77 bpm 16 rpm 98.2 F 170 lbs 69 in 25.1044 kg/m 1.9375 m 100 % 02/28/2014 10:37:00 AM 126 mmHg 68 mmHg 97 bpm 18 rpm 97.2 F 170 lbs 69 in 25.10 kg/m2 1.94 m2 98 % 12/11/2013 10:13:00 AM 136 mmHg 80 mmHg 88 bpm 18 rpm 96.8 F 168.25 lbs 69 in 24.8459 kg/m 1.9275 m 99 % 12/10/2013 10:25:00 AM 140 mmHg 80 mmHg 90 bpm 14 rpm 97.9 F 171.125 lbs 69 in 25.27 kg/m2 1.94 m2 100 % 07/17/2013 10:08:00 AM 126 mmHg 82 mmHg 103 bpm 18 rpm 97.8 F 163.375 lbs 69 in 24.126 kg/m 1.8994 m 99 % 07/17/2013 10:08:00 AM 124 mmHg 68 mmHg 05/22/2013 10:14:00 AM 138 mmHg 80 mmHg 95 bpm 18 rpm 96.7 F 166.25 lbs 69 in 24.55 kg/m2 1.92 m2 98 % 10/25/2012 8:31:00 AM 124 mmHg 64 mmHg 68 bpm 18 rpm 97.6 F 160.125 lbs 69 in 23.6461 kg/m 1.8804 m 10/22/2012 11:04:00 AM 100 mmHg 72 mmHg 112 bpm 20 rpm 98.6 F 161 lbs 69 in 23.78 kg/m2 1.89 m2 97 % 10/04/2012 8:50:00 AM 126 mmHg 64 mmHg 64 bpm 18 rpm 97.8 F 166.375 lbs 69 in 24.569 kg/m 1.9168 m 09/12/2012 11:29:00 AM 138 mmHg 74 mmHg 68 bpm 18 rpm 97.4 F 165.25 lbs 69 in 24.40 kg/m2 1.91 m2 08/01/2012 11:46:00 AM 122 mmHg 64 mmHg 64 bpm 18 rpm 98.8 F 166 lbs 69 in 24.5137 kg/m 1.9146 m 06/05/2012 10:11:00 AM 118 mmHg 60 mmHg 60 bpm 16 rpm 99.2 F 164 lbs 69 in 24.22 kg/m2 1.90 m2 01/10/2012 8:31:00 AM 122 mmHg 60 mmHg 62 bpm 18 rpm 97.8 F 161 lbs 69 in 23.7753 kg/m 1.8855 m 06/14/2011 10:46:00 AM 128 mmHg 70 mmHg 72 bpm 18 rpm 99 F 160 lbs 03/29/2011 8:27:00 AM 120 mmHg 70 mmHg 82 bpm 16 rpm 98.1 F 160.375 lbs 69 in 23.683 kg/m 1.8819 m 100 % Social History Name Description Comments Engaged 2 years college Denies illicit substance abuse Alcohol Use - Occasional Heavy Amount of Exercise (4 or more times weekly) Loan documentation Did not serve in Children Living with significant other in a house High school graduate Tobacco Never smoker History of Procedures Date Ordered Description Order Status 06/14/2011 12:00 AM Decadron 8 mg ND#[id number] Reviewed 06/14/2011 12:00 AM Depo-Medrol 80mg ND#[id number] Reviewed 08/18/2015 12:00 AM Decadron, Per 1 Mg ND# [address]-37 Reviewed 08/18/2015 12:00 AM Depo-Medrol 40mg Reviewed 07/12/2011 12:00 AM MUSCLE TEST ONE LIMB Reviewed 07/12/2011 12:00 AM NERVE CONDUCTION, MOTOR Reviewed 07/12/2011 12:00 AM NERVE CONDUCTION, SENSORY Reviewed 03/15/2016 12:00 AM Decadron, Per 1 Mg ND# [address]-19 Reviewed 03/15/2016 12:00 AM Depo-Medrol, Per 80 Mg ND#[address]-29 Reviewed 03/15/2016 12:00 AM Bicillin LA, 1.2 million units Nd# [address]-28 Reviewed 08/01/2012 12:00 AM THER/PROPH/DIAG INJ SC/IM Reviewed 08/01/2012 12:00 AM Decadron 1 mg ND#[id number] ([place]) Reviewed 08/01/2012 12:00 AM Depo-Medrol 80 mg ND#[id number] Reviewed 09/12/2012 12:00 AM THER/PROPH/DIAG INJ SC/IM Reviewed 09/12/2012 12:00 AM Toradol 60 Mg ND#8498-9459-27 Reviewed 09/12/2012 12:00 AM Phenergan, Up to 50 Mg [facility]#6293-5304-08 Reviewed 10/22/2012 12:00 AM THER/PROPH/DIAG INJ SC/IM Reviewed 10/22/2012 12:00 AM Decadron, Per 1 Mg ND# [address]-21 Reviewed 10/22/2012 12:00 AM Depo-Medrol, Per 80 Mg ND#9548-1737-50 Reviewed 05/22/2013 12:00 AM THER/PROPH/DIAG INJ SC/IM Reviewed 05/22/2013 12:00 AM Phenergan, 50 Mg ND#4935-5639-80 Reviewed 05/22/2013 12:00 AM Toradol 60 Mg [facility]#6864-6676-57 Reviewed 07/17/2013 12:00 AM THER/PROPH/DIAG INJ SC/IM Reviewed 07/17/2013 12:00 AM Decadron, Per 1 Mg [facility]# [address]-91 Reviewed 07/17/2013 12:00 AM Depo-Medrol, Per 80 Mg [facility]#3307-1725-66 Reviewed 07/17/2013 12:00 AM Phenergan, Up to 50 Mg [facility]#7500-9640-94 Reviewed 02/28/2014 12:00 AM THER/PROPH/DIAG INJ SC/IM Reviewed 02/28/2014 12:00 AM Kenalog 40 Mg Im/C'hai Reviewed 10/25/2014 12:00 AM THER/PROPH/DIAG INJ SC/IM Reviewed 10/25/2014 12:00 AM Depo-Medrol 40mg Reviewed 10/25/2014 12:00 AM Decadron, Per 1 Mg [facility]# [address]-21 Reviewed 10/25/2014 12:00 AM Rocephin 1 gram [facility]#1341-9180-53 Reviewed Results Summary Data and Description Results [...] 10:23AM Pharyngitis, Acute Sep 28 2016 9:50AM Payers Insurance Name Company Name Plan Name Plan Number Policy Number Policy Group Number Start Date [employer] [facility] [id number] Tuesday, 2011 History of Encounters Visit Date Visit Type Provider 09/28/2016 Office visit Júnior Echavarria DO 03/15/2016 Office visit Júnior Echavarria DO 08/28/2015 Office visit Júnior Echavarria DO 08/18/2015 Office visit Yanet Eaton MATERIAL HANDLER 10/25/2014 Office visit Madyson Pulido MATERIAL HANDLER 07/16/2014 Office visit Júnior Echavarria DO 02/28/2014 Office visit Yanet Eaton MATERIAL HANDLER 12/11/2013 Office visit Yanet Eaton MATERIAL HANDLER 12/10/2013 Office visit Yanet Eaton MATERIAL HANDLER 07/17/2013 Office visit Yanet Eaton MATERIAL HANDLER 05/22/2013 Office visit Yanet Eaton MATERIAL HANDLER 10/25/2012 Office visit Kerry Galarza MATERIAL HANDLER 10/22/2012 Office visit Kerry Galarza MATERIAL HANDLER 10/04/2012 Office visit Yanet Eaton MATERIAL HANDLER 09/12/2012 Office visit Yanet Eaton MATERIAL HANDLER 08/01/2012 Office visit Yanet Eaton MATERIAL HANDLER 06/05/2012 Office visit Júnior Echavarria DO 01/10/2012 Office visit Júnior Echavarria DO 07/14/2011 Raoul Mishra MD 07/12/2011 Procedures Mg Sorto MD 06/14/2011 Office visit Júnior Echavarria DO 03/29/2011 Office visit Júnior Echavarria DO
--- OUTSIDE RECORDS SUMMARY | 2018-02-23 10:02 | XMS REPORT ---
Author Author Yanet Eaton Organization [facility] Address [address] [place], [place] [address] Care Team Providers Care Yard Associate Name Role Phone Yanet Eaton PCP Unavailable Allergies and Adverse Reactions Name Reaction Notes NO KNOWN DRUG ALLERGIES Plan of Treatment Planned Activity Comments Planned Date Planned Time Plan/Goal CT HEAD/BRAIN W/O & W/DYE 12/10/2013 12:00 AM Medications Active Name Start Date Estimated Completion Date SIG Comments estradiol 1 mg oral tablet Maxalt 10 mg oral tablet 05/22/2013 take 1 tablet (10 mg) by oral [...] route 3 times per day as needed Problem List Description Status Onset Migraine Active Numbness and Tingling Active 2010 Pain in joint; shoulder region Active Vital Signs Date Time BP-Sys(mm[Hg] BP-Monica(mm[Hg]) HR(bpm) RR(rpm) Temp WT HT HC BMI BSA BMI Percentile O2 Sat(%) 08/18/2015 10:37:00 AM 122 mmHg 64 mmHg [...] weekly) Loan documentation Did not serve in [employer] Children Living with significant other in a house High school graduate Tobacco Never smoker History of Procedures Date Ordered Description Order Status 06/14/2011 12:00 AM Decadron 8 mg ND#[id number] Reviewed 06/14/2011 12:00 AM Depo-Medrol 80mg ND#[id number] Reviewed 08/18/2015 12:00 AM Decadron, Per 1 Mg ND# [address]-50 Reviewed 07/12/2011 12:00 AM MUSCLE TEST ONE LIMB Reviewed 07/12/2011 12:00 AM NERVE CONDUCTION, MOTOR Reviewed 07/12/2011 12:00 AM NERVE CONDUCTION, SENSORY Reviewed 08/01/2012 12:00 AM THER/PROPH/DIAG INJ SC/IM Reviewed 08/01/2012 12:00 AM Decadron 1 mg NDC#[id number] ([place]) Reviewed 08/01/2012 12:00 AM Depo-Medrol 80 mg ND#[id number] Reviewed 09/12/2012 12:00 AM THER/PROPH/DIAG INJ SC/IM Reviewed 09/12/2012 12:00 AM Toradol 60 Mg ND#8095-8610-67 Reviewed 09/12/2012 12:00 AM Phenergan, Up to 50 Mg ND#4565-3128-92 Reviewed 10/22/2012 12:00 AM THER/PROPH/DIAG INJ SC/IM Reviewed 10/22/2012 12:00 AM Decadron, Per 1 Mg ND# [address]-05 Reviewed 10/22/2012 12:00 AM Depo-Medrol, Per 80 Mg [facility]#8269-2390-24 Reviewed 05/22/2013 12:00 AM THER/PROPH/DIAG INJ SC/IM Reviewed 05/22/2013 12:00 AM Phenergan, 50 Mg [facility]#1955[address]-15 Reviewed 05/22/2013 12:00 AM Toradol 60 Mg [facility]#4302-9517-45 Reviewed 07/17/2013 12:00 AM THER/PROPH/DIAG INJ SC/IM Reviewed 07/17/2013 12:00 AM Decadron, Per 1 Mg [facility]# [address]-97 Reviewed 07/17/2013 12:00 AM Depo-Medrol, Per 80 Mg [facility]#0613-8936-21 Reviewed 07/17/2013 12:00 AM Phenergan, Up to 50 Mg [facility]#1904-0365-04 Reviewed 02/28/2014 12:00 AM THER/PROPH/DIAG INJ SC/IM Reviewed 02/28/2014 12:00 AM Kenalog 40 Mg Im/C'hai Reviewed 10/25/2014 12:00 AM THER/PROPH/DIAG INJ SC/IM Reviewed 10/25/2014 12:00 AM Depo-Medrol 40mg Reviewed 10/25/2014 12:00 AM Decadron, Per 1 Mg [facility]# [address]-36 Reviewed 10/25/2014 12:00 AM Rocephin 1 gram [facility]#3525-1656-15 Reviewed Results Summary Data and Description Results 03/29/2011 8:33 AM Colonoscopy-Women and Men over 50 Declined Mammogram -Women over 40 Abnormal Pap Smear Negative History Of Immunizations Name Date Admin Mfg Name Mfg Code Trade Name Lot# Route Inj Vis Given Vis Pub CVX Influenza 06/20/2014 Not Entered NE Not Entered Not Entered Not Entered 09/11/2014 09/11/2014 141 History of Past Illness Name Date [...] 10:32AM Acute URI Aug 18 2015 10:39AM Payers Insurance Name Company Name Plan Name Plan Number Policy Number Policy Group Number Start Date [facility] [id number] Tuesday, 2011 History of Encounters Visit Date Visit Type Provider 08/18/2015 Office visit Yanet Eaton DISTRIBUTION SYSTEMS SERVICEPERSON 10/25/2014 Office visit Madyson Pulido DISTRIBUTION SYSTEMS SERVICEPERSON 07/16/2014 Office visit Júnior Echavarria DO 02/28/2014 Office visit Yanet Eaton DISTRIBUTION SYSTEMS SERVICEPERSON 12/11/2013 Office visit Yanet Eaton DISTRIBUTION SYSTEMS SERVICEPERSON 12/10/2013 Office visit Yanet Eatno DISTRIBUTION SYSTEMS SERVICEPERSON 07/17/2013 Office visit Yanet Eaton DISTRIBUTION SYSTEMS SERVICEPERSON 05/22/2013 Office visit Yanet Eaton DISTRIBUTION SYSTEMS SERVICEPERSON 10/25/2012 Office visit Kerry Galarza DISTRIBUTION SYSTEMS SERVICEPERSON 10/22/2012 Office visit Kerry Galarza DISTRIBUTION SYSTEMS SERVICEPERSON 10/04/2012 Office visit Yanet Eaton DISTRIBUTION SYSTEMS SERVICEPERSON 09/12/2012 Office visit Yanet Eaton DISTRIBUTION SYSTEMS SERVICEPERSON 08/01/2012 Office visit Yanet Eaton DISTRIBUTION SYSTEMS SERVICEPERSON 06/05/2012 Office visit Júnior Echavarria DO 01/10/2012 Office visit Júnior Echavarria DO 07/14/2011 Hospital Tara Mishra MD 07/12/2011 Procedures Mg Sorto MD 06/14/2011 Office visit Júnior Echavarria DO 03/29/2011 Office visit Júnior Echavarria DO
--- OUTSIDE RECORDS SUMMARY | 2018-02-23 10:02 | XMS REPORT ---
Author Author Júnior Echavarria [facility] Address [address] [place], [place] [address] Care Team Providers Care Incident Response Coordinator Name Role Phone Júnior Echavarria PCP Unavailable [...] not exceed 30 mg in 24 hours amoxicillin-pot clavulanate 500-125 mg oral tablet 08/28/2015 take 1 tablet by oral route every 12 hours fexofenadine-pseudoephedrine 60-120 mg oral tablet extended release 12 hr take 1 tablet by oral route 2 times per day as needed Name Start Date Expiration Date SIG Comments [...] HC BMI BSA BMI Percentile O2 Sat(%) 08/28/2015 10:23:00 AM 128 mmHg 66 mmHg [...] Status 06/14/2011 12:00 AM Decadron 8 mg ND#[id number] Reviewed 06/14/2011 12:00 AM Depo-Medrol 80mg [facility]#47115111067 Reviewed 08/18/2015 12:00 AM Decadron, Per 1 Mg [facility]# [address]-24 Reviewed 07/12/2011 12:00 AM MUSCLE TEST ONE LIMB Reviewed 07/12/2011 12:00 AM NERVE CONDUCTION, MOTOR Reviewed 07/12/2011 12:00 AM NERVE CONDUCTION, SENSORY Reviewed 08/01/2012 12:00 AM THER/PROPH/DIAG INJ SC/IM Reviewed 08/01/2012 12:00 AM Decadron 1 mg ND#[id number] ([place]) Reviewed 08/01/2012 12:00 AM Depo-Medrol 80 mg [facility]#43446250126-[id number] Reviewed 09/12/2012 12:00 AM THER/PROPH/DIAG INJ SC/IM Reviewed 09/12/2012 12:00 AM Toradol 60 Mg [facility]#0560-7782-70 Reviewed 09/12/2012 12:00 AM Phenergan, Up to 50 Mg [facility]#2893-3173-29 Reviewed 10/22/2012 12:00 AM THER/PROPH/DIAG INJ SC/IM Reviewed 10/22/2012 12:00 AM Decadron, Per 1 Mg [facility]# [address]-96 Reviewed 10/22/2012 12:00 AM Depo-Medrol, Per 80 Mg [facility]#1209-2159-88 Reviewed 05/22/2013 12:00 AM THER/PROPH/DIAG INJ SC/IM Reviewed 05/22/2013 12:00 AM Phenergan, 50 Mg [facility]#1066-9047-27 Reviewed 05/22/2013 12:00 AM Toradol 60 Mg [facility]#3901-3701-12 Reviewed 07/17/2013 12:00 AM THER/PROPH/DIAG INJ SC/IM Reviewed 07/17/2013 12:00 AM Decadron, Per 1 Mg [facility]# [address]-19 Reviewed 07/17/2013 12:00 AM Depo-Medrol, Per 80 Mg [facility]#3018-6518-77 Reviewed 07/17/2013 12:00 AM Phenergan, Up to 50 Mg [facility]#0272-[address]188-75 Reviewed 02/28/2014 12:00 AM THER/PROPH/DIAG INJ SC/IM Reviewed 02/28/2014 12:00 AM Kenalog 40 Mg Im/C'hai Reviewed 10/25/2014 12:00 AM THER/PROPH/DIAG INJ SC/IM Reviewed 10/25/2014 12:00 AM Depo-Medrol 40mg Reviewed 10/25/2014 12:00 AM Decadron, Per 1 Mg [facility]# [address]-36 Reviewed 10/25/2014 12:00 AM Rocephin 1 gram [facility]#0830-8953-41 Reviewed Results Summary Data and Description Results [...] bronchitis, unspecified organism Aug 28 2015 10:27AM Payers Insurance Name Company Name Plan Name Plan Number Policy Number Policy Group Number Start Date [facility] [id number] Tuesday, 2011 History of Encounters Visit Date Visit Type Provider 08/28/2015 Office visit Júnior Echavarria DO 08/18/2015 Office visit Yanet Eaton MANAGER NIGHT 10/25/2014 Office visit Madyson Pulido MANAGER NIGHT 07/16/2014 Office visit Júnior Echavarria DO 02/28/2014 Office visit Yanet Eaton MANAGER NIGHT 12/11/2013 Office visit Yanet Angelito MANAGER NIGHT 12/10/2013 Office visit Yanet Angelito MANAGER NIGHT 07/17/2013 Office visit Yanet Angelito MANAGER NIGHT 05/22/2013 Office visit Yanet Angelito MANAGER NIGHT 10/25/2012 Office visit Kerry Galarza MANAGER NIGHT 10/22/2012 Office visit Kerry Galarza MANAGER NIGHT 10/04/2012 Office visit Yanet Angelito MANAGER NIGHT 09/12/2012 Office visit Yanet Eaton MANAGER NIGHT 08/01/2012 Office visit Yanet Eaton MANAGER NIGHT 06/05/2012 Office visit Júnior Echavarria DO 01/10/2012 Office visit Júnior Echavarria DO 07/14/2011 Hospital Tara Mishra MD 07/12/2011 Procedures Mg Sorto MD 06/14/2011 Office visit Júnior Echavarria DO 03/29/2011 Office visit Júnior Echavarria DO
--- OUTSIDE RECORDS SUMMARY | 2018-02-23 10:03 | XMS REPORT ---
Author Author Yanet Eaton [facility] Address [address] [place], [place] [address] Care Team Providers Care Statistical Machine Servicer Name Role Phone Yanet Eaton PCP Unavailable [...] not exceed 30 mg in 24 hours cyclobenzaprine 10 mg oral tablet 03/06/2017 take 1 tablet by oral route once a day (at bedtime) as needed Name Start Date Expiration Date [...] HC BMI BSA BMI Percentile O2 Sat(%) 03/06/2017 1:37:00 PM 130 mmHg 70 mmHg 80 bpm 18 rpm 98.5 F 165.5 lbs 68 in 25.16 kg/m2 1.90 m2 98 % 10/12/2016 11:24:00 AM 122 mmHg 72 mmHg 71 bpm 18 rpm 97.9 F 169 lbs 68 in 25.6961 kg/m 1.9178 m 100 % 09/28/2016 9:48:00 AM 122 mmHg [...] Status 06/14/2011 12:00 AM Decadron 8 mg [facility]#[id number] Reviewed 06/14/2011 12:00 AM Depo-Medrol 80mg [facility]#97682232609 Reviewed 08/18/2015 12:00 AM Decadron, Per 1 Mg [facility]# [address]-25 Reviewed 08/18/2015 12:00 AM Depo-Medrol 40mg Reviewed 07/12/2011 12:00 AM MUSCLE TEST ONE LIMB Reviewed 07/12/2011 12:00 AM NERVE CONDUCTION, MOTOR Reviewed 07/12/2011 12:00 AM NERVE CONDUCTION, SENSORY Reviewed 03/15/2016 12:00 AM Decadron, Per 1 Mg [facility]# [address]-32 Reviewed 03/15/2016 12:00 AM Depo-Medrol, Per 80 Mg [facility]#[address]-53 Reviewed 03/15/2016 12:00 AM Bicillin LA, 1.2 million units [facility]# [address]-29 Reviewed 10/12/2016 12:00 AM Decadron, Per 1 Mg [facility]# [address]-81 Reviewed 10/12/2016 12:00 AM Depo-Medrol 40mg Injection Reviewed 03/06/2017 12:00 AM Toradol 60 Mg Injection Reviewed 08/01/2012 12:00 AM THER/PROPH/DIAG INJ SC/IM Reviewed 08/01/2012 12:00 AM Decadron 1 mg [facility]#23048111182 ([place]) Reviewed 08/01/2012 12:00 AM Depo-Medrol 80 mg [facility]#[id number]-[id number] Reviewed 09/12/2012 12:00 AM THER/PROPH/DIAG INJ SC/IM Reviewed 09/12/2012 12:00 AM Toradol 60 Mg [facility]#4198-4642-93 Reviewed 09/12/2012 12:00 AM Phenergan, Up to 50 Mg [facility]#0666-5696-98 Reviewed 10/22/2012 12:00 AM THER/PROPH/DIAG INJ SC/IM Reviewed 10/22/2012 12:00 AM Decadron, Per 1 Mg [facility]# [address]-84 Reviewed 10/22/2012 12:00 AM Depo-Medrol, Per 80 Mg [facility]#4360-8269-45 Reviewed 05/22/2013 12:00 AM THER/PROPH/DIAG INJ SC/IM Reviewed 05/22/2013 12:00 AM Phenergan, 50 Mg [facility]#1199-0488-71 Reviewed 05/22/2013 12:00 AM Toradol 60 Mg [facility]#9767-0186-75 Reviewed 07/17/2013 12:00 AM THER/PROPH/DIAG INJ SC/IM Reviewed 07/17/2013 12:00 AM Decadron, Per 1 Mg [facility]# [address]-31 Reviewed 07/17/2013 12:00 AM Depo-Medrol, Per 80 Mg [facility]#9044-7775-12 Reviewed 07/17/2013 12:00 AM Phenergan, Up to 50 Mg [facility]#1014-2385-49 Reviewed 02/28/2014 12:00 AM THER/PROPH/DIAG INJ SC/IM Reviewed 02/28/2014 12:00 AM Kenalog 40 Mg Im/C'hai Reviewed 10/25/2014 12:00 AM THER/PROPH/DIAG INJ SC/IM Reviewed 10/25/2014 12:00 AM Depo-Medrol 40mg Reviewed 10/25/2014 12:00 AM Decadron, Per 1 Mg [facility]# [address]-31 Reviewed 10/25/2014 12:00 AM Rocephin 1 gram [facility]#5426-0360-03 Reviewed Results Summary Date and Description Results [...] upper respiratory infection Oct 12 2016 11:26AM Intractable migraine with aura with status migrainosus Mar 06 2017 1:40PM Neck pain Mar 06 2017 1:40PM Payers Insurance Name Company Name Plan Name Plan Number Policy Number Policy Group Number [facility] [id number] Tuesday, 2011 History of Encounters Visit Date Visit Type Provider 03/06/2017 Office visit Yanet Eaton GUEST SERVICES COORDINATOR 10/12/2016 Office visit Yanet Eaton GUEST SERVICES COORDINATOR 09/28/2016 Office visit Júnior Echavarria DO 03/15/2016 Office visit Júnior Echavarria DO 08/28/2015 Office visit Júnior Echavarria DO 08/18/2015 Office visit Yanet Eaton GUEST SERVICES COORDINATOR 10/25/2014 Office visit Madyson Pulido GUEST SERVICES COORDINATOR 07/16/2014 Office visit Júnior Echavarria DO 02/28/2014 Office visit Yanet Eaton GUEST SERVICES COORDINATOR 12/11/2013 Office visit Yanet Eaton GUEST SERVICES COORDINATOR 12/10/2013 Office visit Yanet Eaton GUEST SERVICES COORDINATOR 07/17/2013 Office visit Yanet Eaton GUEST SERVICES COORDINATOR 05/22/2013 Office visit Yanet Eaton GUEST SERVICES COORDINATOR 10/25/2012 Office visit Kerry Galarza GUEST SERVICES COORDINATOR 10/22/2012 Office visit Kerry Galarza GUEST SERVICES COORDINATOR 10/04/2012 Office visit Yanet Eaton GUEST SERVICES COORDINATOR 09/12/2012 Office visit Yanet Eaton GUEST SERVICES COORDINATOR 08/01/2012 Office visit Yanet Eaton GUEST SERVICES COORDINATOR 06/05/2012 Office visit Júnior Echavarria DO 01/10/2012 Office visit Júnior Echavarria DO 07/14/2011 Hospital Tara Mishra MD 07/12/2011 Procedures Mg Sorto MD 06/14/2011 Office visit Júnior Echavarria DO 03/29/2011 Office visit Júnior Echavarria DO
--- NOTE | 2018-02-23 10:16 | Progress Note-Pre Operative ---
Pre-Operative Progress Note H&P Reviewed The H&P was reviewed, patient examined and no changes noted. Date Seen by Provider: Feb 20, 2018 Time Seen by Provider: 14:00 Date H&P Reviewed: Feb 23, 2018 Time H&P Reviewed: 10:16 Pre-Operative Diagnosis: Right breast cancer DARA RANGEL MD Feb 23, 2018 10:16 am
[2018-02-23] MEDS ORDERED: ACHD5005 PO (10:17)
--- NOTE | 2018-02-23 10:18 | Discharge Inst-Simple/Standard ---
Discharge Inst-Standard Discharge Medications New, Converted or Re-Newed RX: RX on Chart Patient Instructions/Follow Up Plan of Care/Instructions/FU: Band-Aids off in 48 hours. May use the port Activity as Tolerated: Yes Discharge Diet: No Restrictions DARA RANGEL MD Feb 23, 2018 10:18 am
[2018-02-23 10:30] VITALS: BP 119/87
[2018-02-23] MEDS ORDERED: SCOPOLAMINE 1.5 MG (TRANSDERM-SCOP) PATCH TOP ONE (10:30)
[2018-02-23] MEDS ORDERED: ceFAZolin 1 GM/NS 50 ML IVPB IV ONE ×2 (10:30)
[2018-02-23] MEDS ORDERED: FAMOTIDINE 20MG/2ML IV (PEPCID) IV ONE (10:30)
[2018-02-23] MEDS ORDERED: MIDAZOLAM 2 MG/2 ML (VERSED) VIAL IV ONE (10:30)
[2018-02-23] MEDS ORDERED: ONDANSETRON 4 MG/2 ML (SDV) Z0FRAN IV ONE (10:30)
[2018-02-23] MEDS ORDERED: HEParin (CENTRAL IV FLUSH) 500 UNIT/5 ML SYR ONE (10:38)
[2018-02-23] MEDS ORDERED: BUP/EPI 0.5% 1:200,000 (SENSORCAINE) 30 ML VIAL ONE (10:38)
[2018-02-23] MEDS ORDERED: DEXAMETHASONE 10 MG/ML (DECADRON) 1 ML VIAL ONE (10:39)
[2018-02-23] MEDS ORDERED: fentaNYL INJECTION 100 MCG/2 ML AMP ONE (10:39)
[2018-02-23] MEDS ORDERED: ONDANSETRON 4 MG/2 ML (SDV) Z0FRAN ONE ×2 (10:39→10:44)
[2018-02-23] MEDS ORDERED: LIDOCAINE PF 2% 5 ML (XYLOCAINE) VIAL ONE (10:39)
[2018-02-23] MEDS ORDERED: SEVOFLURANE (ULTANE) 15 ML INHAL SOLN ONE ×3 (10:39→11:58)
[2018-02-23] MEDS ORDERED: LACTATED RINGERS 1,000 ML IV PRN (10:41)
[2018-02-23] MEDS ORDERED: FAMOTIDINE 20MG/2ML IV (PEPCID) ONE (10:44)
[2018-02-23] MEDS ORDERED: SCOPOLAMINE 1.5 MG (TRANSDERM-SCOP) PATCH ONE (10:44)
[2018-02-23] MEDS ORDERED: MIDAZOLAM 2 MG/2 ML (VERSED) VIAL ONE (10:44)
[2018-02-23] MEDS ORDERED: ceFAZolin INJECTION 1,000 MG in NS (IVPB) 50 ML IV ONE (10:45)
[2018-02-23] MEDS ORDERED: 0.9% SODIUM CHLORIDE PF INJ 20 ML VIAL ONE (10:53)
[2018-02-23 11:05] LABS: BASOPHILS % (AUTO) 1 % (0-10); EOSINOPHILS # (AUTO) 0.1 10^3/uL (0.0-0.3); EOSINOPHILS % (AUTO) 1 % (0-10); HEMATOCRIT 41 % (35-52); HEMOGLOBIN 13.9 G/DL (11.5-16.0); LYMPHOCYTES # (AUTO) 1.5 X 10^3 (1.0-4.0); LYMPHOCYTES % (AUTO) 19 % (12-44); MEAN CORPUSCULAR HEMOGLOBIN 31 PG (25-34); MEAN CORPUSCULAR HGB CONC 34 G/DL (32-36); MEAN CORPUSCULAR VOLUME 90 FL (80-99); MEAN PLATELET VOLUME 9.6 FL (7.4-10.4); MONOCYTES # (AUTO) 0.7 X 10^3 (0.0-1.0); MONOCYTES % (AUTO) 9 % (0-12); NEUTROPHILS # (AUTO) 5.5 X 10^3 (1.8-7.8); NEUTROPHILS % (AUTO) 70 % (42-75); PLATELET COUNT 340 10^3/uL (130-400); RED BLOOD COUNT 4.55 10^6/uL (4.35-5.85); RED CELL DISTRIBUTION WIDTH 14.2 % (10.0-14.5); WHITE BLOOD COUNT 7.9 10^3/uL (4.3-11.0)
[2018-02-23 11:19] LABS: ALANINE AMINOTRANSFERASE 24 U/L (0-55); ALBUMIN 4.4 GM/DL (3.2-4.5); ALKALINE PHOSPHATASE 55 U/L (40-136); BILIRUBIN,TOTAL 1.1 MG/DL (0.1-1.0); BUN/CREATININE RATIO 26; CALCIUM 9.5 MG/DL (8.5-10.1); CARBON DIOXIDE 23 MMOL/L (21-32); CHLORIDE 108 MMOL/L (98-107); CREATININE SERUM 0.78 MG/DL (0.60-1.30); GFR ESTIMATED > 60; GLUCOSE 97 MG/DL (70-105); SODIUM 140 MMOL/L (135-145); TOTAL PROTEIN 7.4 GM/DL (6.4-8.2)
--- NOTE | 2018-02-23 11:53 | Diagnostic Imaging Report ---
INDICATION: Fluoroscopy for port placement. Fluoroscopy was provided in the OR during a port placement. 57 seconds of fluoroscopy was utilized. A single image demonstrates a left-sided port with tip overlying the SVC. IMPRESSION: Fluoroscopy for port placement. Dictated by: Dictated on workstation # [id number]
--- NOTE | 2018-02-23 11:58 | Operative Report ---
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 To facilitate this, placing an Zwytmr-[id number]-Aqhd was felt to be reasonable. Informed consent was obtained after reviewing the details of the procedure, complications of hematoma, bacteremia and malfunction of the catheter, requiring replacement. Description of the procedure: She was placed supine on the operating table and general anesthesia induced. A gram of Ancef was administered intravenously as prophylaxis against wound infection. Sequential compression devices were placed around her legs, to minimize the risk of venous thrombosis. Her neck and upper chest were prepared and draped in the usual sterile manner. Left internal jugular vein was localized using a 12 MHz ultrasound probe and a floppy guidewire introduced into the heart, under fluoroscopy. A subcutaneous pocket was created over the infraclavicular fossa and the Bonifacio catheter brought into the neck, in a retrograde fashion. It was then advanced into the heart, under fluoroscopy, using the peel-away sheath. The catheter was then pulled back to the superior vena cava under fluoroscopy and connected to the Fhhevl-q-Utwi, that had been heparinized saline. I was able to aspirate and flush the system without any difficulty. Port was then secured to the pectoralis tissue using 2-0 Prolene sutures. Incision was then closed using 3- 0 Vicryl for the subcutaneous tissue and 4-0 Vicryl for skin, in a subcuticular fashion. Preemptive analgesia was established using 0.5 percent Marcaine with epinephrine. She tolerated the procedure well, was extubated in the operating room and taken to the recovery room in a stable condition. Findings of the Procedure see op report Allergies and Home Medications Allergies Coded Allergies: No Known Drug Allergies (Unverified , 02/22/18) Home Medications Hydrocodone Bit/Acetaminophen 1 Tab Tab, 1-2 TAB PO 4-6HR PRN for PAIN Prescribed by: DARA RANGEL on 02/23/18 1017 Multivitamin 1 Each Tablet, 1 EACH PO DAILY, (Reported) Patient Home Medication List Home Medication List Reviewed: Yes DARA RANGEL MD Feb 23, 2018 11:58 am
[2018-02-23 12:55] VITALS: BP 120/82
[2018-02-23 13:25] VITALS: BP 118/88
[2018-02-23 13:55] VITALS: BP 111/81
[2018-02-23 14:45] VITALS: BP 111/81
== END 2018-02-23 14:45 | disposition home or self-care (01) ==
LOC: SDC 09:55
PROVIDERS: ATTEND Surgery
DX: C50.911 Malignant neoplasm of unspecified site of right female breast (principal); C77.3 Secondary and unspecified malignant neoplasm of axilla and upper limb lymph nodes
CPT/HCPCS: 36415; 80053; 85025; 86300; 87081

== ENCOUNTER → 2018-04-25 | Outpatient (CLI) | payer BC ==
[~2018-04-25] MED LIST changes: +ACHD5005 PO
--- NOTE | 2018-04-25 11:00 | Diagnostic Imaging Report ---
Indication: Right breast carcinoma, status post several rounds of chemotherapy. Correlation is made with the prior breast ultrasound from 02/08/2018. Sonographic interrogation of the 10 o'clock location of the right breast 8 cm from the nipple was performed. Heterogeneous tissue at this area is seen but previously noted hypoechoic mass is no longer present. The enlarged lymph node in the right axilla has decreased in size now measuring 2.3 x 1.0 x 1.2 cm compared with 3.1 x 2.1 cm on prior. No new abnormality is seen. Impression: Previously noted mass at the 10 o'clock location in the right breast 8 cm from the nipple is no longer visualized. In addition, the enlarged right axillary lymph node has decreased in size. Dictated by: Dictated on workstation # [id number]
== END ==
LOC: RAD 09:56
PROVIDERS: ATTEND Nurse Practitioner Adult Health
DX: C50.411 Malignant neoplasm of upper-outer quadrant of right female breast (principal)

== ENCOUNTER 2018-05-22 09:53 | Outpatient (RCR) | payer BC ==
[2018-03-06 11:12] LABS: HEMATOCRIT 41 % (35-52); HEMOGLOBIN 14.2 G/DL (11.5-16.0); MEAN CORPUSCULAR HEMOGLOBIN 32 PG (25-34); MEAN CORPUSCULAR HGB CONC 35 G/DL (32-36); MEAN CORPUSCULAR VOLUME 91 FL (80-99); MEAN PLATELET VOLUME 9.4 FL (7.4-10.4); PLATELET COUNT 275 10^3/uL (130-400); RED BLOOD COUNT 4.49 10^6/uL (4.35-5.85); RED CELL DISTRIBUTION WIDTH 14.2 % (10.0-14.5); WHITE BLOOD COUNT 27.1 10^3/uL (4.3-11.0)
[2018-03-06 11:40] LABS: BUN/CREATININE RATIO 17; CALCIUM 9.6 MG/DL (8.5-10.1); CARBON DIOXIDE 23 MMOL/L (21-32); CHLORIDE 104 MMOL/L (98-107); CREATININE SERUM 0.84 MG/DL (0.60-1.30); GFR ESTIMATED > 60; GLUCOSE 95 MG/DL (70-105); POTASSIUM 4.6 MMOL/L (3.6-5.0); SODIUM 139 MMOL/L (135-145)
[2018-03-08 14:56] LABS: BILIRUBIN,URINE NEGATIVE (NEGATIVE); CLARITY,URINE CLEAR; COLOR,URINE YELLOW; GLUCOSE, URINE (UA) NEGATIVE (NEGATIVE); KETONES,URINE NEGATIVE (NEGATIVE); LEUKOCYTE ESTERASE ,URINE 1+ (NEGATIVE); NITRITE,URINE NEGATIVE (NEGATIVE); PH,URINE 6 (5-9); PROTEIN,URINE 1+ (NEGATIVE); UROBILINOGEN,URINE NORMAL (NORMAL)
[2018-03-08 15:03] LABS: AMORPHOUS SEDIMENT,UR RARE AMOR URATES /LPF; BACTERIA,URINE TRACE /HPF; SQUAMOUS EPITHELIAL CELL,UR 0-2 /HPF
[2018-03-13 10:37] LABS: BASOPHILS # (AUTO) 0.1 10^3/uL (0.0-0.1); BASOPHILS % (AUTO) 1 % (0-10); EOSINOPHILS % (AUTO) 0 % (0-10); HEMATOCRIT 40 % (35-52); HEMOGLOBIN 13.5 G/DL (11.5-16.0); LYMPHOCYTES # (AUTO) 1.9 X 10^3 (1.0-4.0); LYMPHOCYTES % (AUTO) 20 % (12-44); MEAN CORPUSCULAR HEMOGLOBIN 31 PG (25-34); MEAN CORPUSCULAR HGB CONC 34 G/DL (32-36); MEAN CORPUSCULAR VOLUME 91 FL (80-99); MEAN PLATELET VOLUME 8.5 FL (7.4-10.4); MONOCYTES # (AUTO) 0.5 X 10^3 (0.0-1.0); MONOCYTES % (AUTO) 5 % (0-12); NEUTROPHILS # (AUTO) 7.1 X 10^3 (1.8-7.8); NEUTROPHILS % (AUTO) 75 % (42-75); PLATELET COUNT 202 10^3/uL (130-400); RED BLOOD COUNT 4.41 10^6/uL (4.35-5.85); RED CELL DISTRIBUTION WIDTH 15.2 % (10.0-14.5); WHITE BLOOD COUNT 9.4 10^3/uL (4.3-11.0)
[2018-03-13 11:24] LABS: BUN/CREATININE RATIO 16; CALCIUM 9.5 MG/DL (8.5-10.1); CARBON DIOXIDE 24 MMOL/L (21-32); CHLORIDE 106 MMOL/L (98-107); CREATININE SERUM 0.82 MG/DL (0.60-1.30); GFR ESTIMATED > 60; GLUCOSE 105 MG/DL (70-105); SODIUM 139 MMOL/L (135-145)
[2018-03-20 10:57] LABS: BASOPHILS % (AUTO) 0 % (0-10); EOSINOPHILS # (AUTO) 0.1 10^3/uL (0.0-0.3); EOSINOPHILS % (AUTO) 0 % (0-10); HEMATOCRIT 35 % (35-52); HEMOGLOBIN 12.2 G/DL (11.5-16.0); LYMPHOCYTES # (AUTO) 0.6 X 10^3 (1.0-4.0); LYMPHOCYTES % (AUTO) 4 % (12-44); MEAN CORPUSCULAR HEMOGLOBIN 31 PG (25-34); MEAN CORPUSCULAR HGB CONC 35 G/DL (32-36); MEAN CORPUSCULAR VOLUME 91 FL (80-99); MEAN PLATELET VOLUME 8.6 FL (7.4-10.4); MONOCYTES # (AUTO) 0.1 X 10^3 (0.0-1.0); MONOCYTES % (AUTO) 1 % (0-12); NEUTROPHILS # (AUTO) 12.5 X 10^3 (1.8-7.8); NEUTROPHILS % (AUTO) 94 % (42-75); PLATELET COUNT 432 10^3/uL (130-400); RED BLOOD COUNT 3.88 10^6/uL (4.35-5.85); RED CELL DISTRIBUTION WIDTH 14.9 % (10.0-14.5); WHITE BLOOD COUNT 13.3 10^3/uL (4.3-11.0)
[2018-03-20 11:13] LABS: ALANINE AMINOTRANSFERASE 26 U/L (0-55); ALBUMIN 4.3 GM/DL (3.2-4.5); ALKALINE PHOSPHATASE 64 U/L (40-136); BILIRUBIN,TOTAL 0.7 MG/DL (0.1-1.0); BUN/CREATININE RATIO 27; CALCIUM 9.5 MG/DL (8.5-10.1); CARBON DIOXIDE 23 MMOL/L (21-32); CHLORIDE 109 MMOL/L (98-107); CREATININE SERUM 0.78 MG/DL (0.60-1.30); GFR ESTIMATED > 60; GLUCOSE 131 MG/DL (70-105); MAGNESIUM 2.1 MG/DL (1.8-2.4); POTASSIUM 3.8 MMOL/L (3.6-5.0); SODIUM 139 MMOL/L (135-145)
[2018-03-27 09:58] LABS: HEMATOCRIT 38 % (35-52); HEMOGLOBIN 12.9 G/DL (11.5-16.0); MEAN CORPUSCULAR HEMOGLOBIN 31 PG (25-34); MEAN CORPUSCULAR HGB CONC 34 G/DL (32-36); MEAN CORPUSCULAR VOLUME 92 FL (80-99); MEAN PLATELET VOLUME 8.7 FL (7.4-10.4); PLATELET COUNT 264 10^3/uL (130-400); RED BLOOD COUNT 4.17 10^6/uL (4.35-5.85); RED CELL DISTRIBUTION WIDTH 15.2 % (10.0-14.5)
[2018-03-27 10:18] LABS: BUN/CREATININE RATIO 22; CALCIUM 9.7 MG/DL (8.5-10.1); CARBON DIOXIDE 26 MMOL/L (21-32); CHLORIDE 107 MMOL/L (98-107); CREATININE SERUM 0.79 MG/DL (0.60-1.30); GFR ESTIMATED > 60; GLUCOSE 117 MG/DL (70-105); SODIUM 140 MMOL/L (135-145)
[2018-04-03 09:38] LABS: BASOPHILS # (AUTO) 0.1 10^3/uL (0.0-0.1); BASOPHILS % (AUTO) 0 % (0-10); EOSINOPHILS % (AUTO) 0 % (0-10); HEMATOCRIT 37 % (35-52); HEMOGLOBIN 12.4 G/DL (11.5-16.0); LYMPHOCYTES # (AUTO) 1.9 X 10^3 (1.0-4.0); LYMPHOCYTES % (AUTO) 16 % (12-44); MEAN CORPUSCULAR HEMOGLOBIN 31 PG (25-34); MEAN CORPUSCULAR HGB CONC 34 G/DL (32-36); MEAN CORPUSCULAR VOLUME 92 FL (80-99); MONOCYTES # (AUTO) 0.5 X 10^3 (0.0-1.0); MONOCYTES % (AUTO) 5 % (0-12); NEUTROPHILS # (AUTO) 9.1 X 10^3 (1.8-7.8); NEUTROPHILS % (AUTO) 78 % (42-75); PLATELET COUNT 155 10^3/uL (130-400); RED BLOOD COUNT 3.95 10^6/uL (4.35-5.85); RED CELL DISTRIBUTION WIDTH 15.3 % (10.0-14.5); WHITE BLOOD COUNT 11.6 10^3/uL (4.3-11.0)
[2018-04-03 09:59] LABS: BUN/CREATININE RATIO 24; CARBON DIOXIDE 23 MMOL/L (21-32); CHLORIDE 110 MMOL/L (98-107); CREATININE SERUM 0.76 MG/DL (0.60-1.30); GFR ESTIMATED > 60; GLUCOSE 98 MG/DL (70-105); POTASSIUM 4.3 MMOL/L (3.6-5.0); SODIUM 140 MMOL/L (135-145)
[2018-04-10 08:52] LABS: BASOPHILS % (AUTO) 0 % (0-10); EOSINOPHILS % (AUTO) 0 % (0-10); HEMATOCRIT 35 % (35-52); HEMOGLOBIN 12.1 G/DL (11.5-16.0); LYMPHOCYTES # (AUTO) 0.8 X 10^3 (1.0-4.0); LYMPHOCYTES % (AUTO) 6 % (12-44); MEAN CORPUSCULAR HEMOGLOBIN 31 PG (25-34); MEAN CORPUSCULAR HGB CONC 34 G/DL (32-36); MEAN CORPUSCULAR VOLUME 91 FL (80-99); MEAN PLATELET VOLUME 8.5 FL (7.4-10.4); MONOCYTES # (AUTO) 0.4 X 10^3 (0.0-1.0); MONOCYTES % (AUTO) 3 % (0-12); NEUTROPHILS # (AUTO) 11.7 X 10^3 (1.8-7.8); NEUTROPHILS % (AUTO) 91 % (42-75); PLATELET COUNT 344 10^3/uL (130-400); RED BLOOD COUNT 3.86 10^6/uL (4.35-5.85); RED CELL DISTRIBUTION WIDTH 15.9 % (10.0-14.5); WHITE BLOOD COUNT 12.9 10^3/uL (4.3-11.0)
[2018-04-10 09:12] LABS: ALANINE AMINOTRANSFERASE 71 U/L (0-55); ALBUMIN 4.6 GM/DL (3.2-4.5); ALKALINE PHOSPHATASE 70 U/L (40-136); BILIRUBIN,TOTAL 0.6 MG/DL (0.1-1.0); BUN/CREATININE RATIO 25; CALCIUM 10.4 MG/DL (8.5-10.1); CARBON DIOXIDE 21 MMOL/L (21-32); CHLORIDE 107 MMOL/L (98-107); CREATININE SERUM 0.75 MG/DL (0.60-1.30); GFR ESTIMATED > 60; GLUCOSE 120 MG/DL (70-105); MAGNESIUM 2.4 MG/DL (1.8-2.4); POTASSIUM 3.9 MMOL/L (3.6-5.0); SODIUM 139 MMOL/L (135-145); TOTAL PROTEIN 7.3 GM/DL (6.4-8.2)
[2018-04-17 09:57] LABS: HEMATOCRIT 38 % (35-52); HEMOGLOBIN 12.7 G/DL (11.5-16.0); MEAN CORPUSCULAR HEMOGLOBIN 31 PG (25-34); MEAN CORPUSCULAR HGB CONC 34 G/DL (32-36); MEAN CORPUSCULAR VOLUME 93 FL (80-99); PLATELET COUNT 260 10^3/uL (130-400); RED BLOOD COUNT 4.04 10^6/uL (4.35-5.85); RED CELL DISTRIBUTION WIDTH 16.3 % (10.0-14.5); WHITE BLOOD COUNT 23.2 10^3/uL (4.3-11.0)
[2018-04-17 10:11] LABS: BUN/CREATININE RATIO 33; CALCIUM 9.7 MG/DL (8.5-10.1); CARBON DIOXIDE 24 MMOL/L (21-32); CHLORIDE 106 MMOL/L (98-107); CREATININE SERUM 0.76 MG/DL (0.60-1.30); GFR ESTIMATED > 60; GLUCOSE 110 MG/DL (70-105); POTASSIUM 4.2 MMOL/L (3.6-5.0); SODIUM 139 MMOL/L (135-145)
[2018-04-25 09:46] LABS: BASOPHILS % (AUTO) 1 % (0-10); EOSINOPHILS % (AUTO) 0 % (0-10); HEMATOCRIT 36 % (35-52); HEMOGLOBIN 11.9 G/DL (11.5-16.0); LYMPHOCYTES # (AUTO) 1.5 X 10^3 (1.0-4.0); LYMPHOCYTES % (AUTO) 21 % (12-44); MEAN CORPUSCULAR HEMOGLOBIN 31 PG (25-34); MEAN CORPUSCULAR HGB CONC 33 G/DL (32-36); MEAN CORPUSCULAR VOLUME 93 FL (80-99); MEAN PLATELET VOLUME 8.5 FL (7.4-10.4); MONOCYTES # (AUTO) 0.5 X 10^3 (0.0-1.0); MONOCYTES % (AUTO) 8 % (0-12); NEUTROPHILS % (AUTO) 71 % (42-75); PLATELET COUNT 198 10^3/uL (130-400); RED BLOOD COUNT 3.89 10^6/uL (4.35-5.85); RED CELL DISTRIBUTION WIDTH 16.2 % (10.0-14.5); WHITE BLOOD COUNT 7.1 10^3/uL (4.3-11.0)
[2018-04-25 10:05] LABS: BUN/CREATININE RATIO 25; CALCIUM 9.5 MG/DL (8.5-10.1); CARBON DIOXIDE 24 MMOL/L (21-32); CHLORIDE 106 MMOL/L (98-107); CREATININE SERUM 0.77 MG/DL (0.60-1.30); GFR ESTIMATED > 60; GLUCOSE 102 MG/DL (70-105); POTASSIUM 4.4 MMOL/L (3.6-5.0); SODIUM 138 MMOL/L (135-145)
[2018-05-01 09:18] LABS: BASOPHILS % (AUTO) 0 % (0-10); EOSINOPHILS % (AUTO) 0 % (0-10); HEMATOCRIT 35 % (35-52); HEMOGLOBIN 11.7 G/DL (11.5-16.0); LYMPHOCYTES # (AUTO) 0.6 X 10^3 (1.0-4.0); LYMPHOCYTES % (AUTO) 5 % (12-44); MEAN CORPUSCULAR HEMOGLOBIN 31 PG (25-34); MEAN CORPUSCULAR HGB CONC 34 G/DL (32-36); MEAN CORPUSCULAR VOLUME 93 FL (80-99); MEAN PLATELET VOLUME 8.3 FL (7.4-10.4); MONOCYTES # (AUTO) 0.4 X 10^3 (0.0-1.0); MONOCYTES % (AUTO) 3 % (0-12); NEUTROPHILS # (AUTO) 12.5 X 10^3 (1.8-7.8); NEUTROPHILS % (AUTO) 93 % (42-75); PLATELET COUNT 308 10^3/uL (130-400); RED BLOOD COUNT 3.76 10^6/uL (4.35-5.85); RED CELL DISTRIBUTION WIDTH 16.6 % (10.0-14.5); WHITE BLOOD COUNT 13.5 10^3/uL (4.3-11.0)
[2018-05-01 09:39] LABS: ALANINE AMINOTRANSFERASE 36 U/L (0-55); ALBUMIN 4.5 GM/DL (3.2-4.5); ALKALINE PHOSPHATASE 65 U/L (40-136); BILIRUBIN,TOTAL 0.4 MG/DL (0.1-1.0); BUN/CREATININE RATIO 25; CALCIUM 9.5 MG/DL (8.5-10.1); CARBON DIOXIDE 23 MMOL/L (21-32); CHLORIDE 107 MMOL/L (98-107); CREATININE SERUM 0.68 MG/DL (0.60-1.30); GFR ESTIMATED > 60; GLUCOSE 120 MG/DL (70-105); MAGNESIUM 2.3 MG/DL (1.8-2.4); SODIUM 138 MMOL/L (135-145)
[2018-05-08 11:07] LABS: BUN/CREATININE RATIO 24; CALCIUM 9.7 MG/DL (8.5-10.1); CARBON DIOXIDE 24 MMOL/L (21-32); CHLORIDE 105 MMOL/L (98-107); CREATININE SERUM 0.85 MG/DL (0.60-1.30); GFR ESTIMATED > 60; GLUCOSE 111 MG/DL (70-105); POTASSIUM 4.3 MMOL/L (3.6-5.0); SODIUM 140 MMOL/L (135-145)
[2018-05-08 11:09] LABS: BASOPHILS # (AUTO) 0.2 10^3/uL (0.0-0.1); BASOPHILS % (AUTO) 1 % (0-10); EOSINOPHILS # (AUTO) 0.1 10^3/uL (0.0-0.3); EOSINOPHILS % (AUTO) 1 % (0-10); HEMATOCRIT 37 % (35-52); HEMOGLOBIN 12.5 G/DL (11.5-16.0); LYMPHOCYTES # (AUTO) 2.8 X 10^3 (1.0-4.0); LYMPHOCYTES % (AUTO) 16 % (12-44); MEAN CORPUSCULAR HEMOGLOBIN 32 PG (25-34); MEAN CORPUSCULAR HGB CONC 34 G/DL (32-36); MEAN CORPUSCULAR VOLUME 95 FL (80-99); MEAN PLATELET VOLUME 8.9 FL (7.4-10.4); MONOCYTES # (AUTO) 2.3 X 10^3 (0.0-1.0); MONOCYTES % (AUTO) 13 % (0-12); NEUTROPHILS # (AUTO) 11.8 X 10^3 (1.8-7.8); NEUTROPHILS % (AUTO) 69 % (42-75); PLATELET COUNT 244 10^3/uL (130-400); RED BLOOD COUNT 3.89 10^6/uL (4.35-5.85); RED CELL DISTRIBUTION WIDTH 16.1 % (10.0-14.5); WHITE BLOOD COUNT 17.2 10^3/uL (4.3-11.0)
[2018-05-15 09:10] LABS: BASOPHILS % (AUTO) 0 % (0-10); EOSINOPHILS % (AUTO) 0 % (0-10); HEMATOCRIT 37 % (35-52); HEMOGLOBIN 12.3 G/DL (11.5-16.0); LYMPHOCYTES # (AUTO) 1.3 X 10^3 (1.0-4.0); LYMPHOCYTES % (AUTO) 16 % (12-44); MEAN CORPUSCULAR HEMOGLOBIN 32 PG (25-34); MEAN CORPUSCULAR HGB CONC 33 G/DL (32-36); MEAN CORPUSCULAR VOLUME 95 FL (80-99); MEAN PLATELET VOLUME 8.5 FL (7.4-10.4); MONOCYTES # (AUTO) 0.5 X 10^3 (0.0-1.0); MONOCYTES % (AUTO) 6 % (0-12); NEUTROPHILS # (AUTO) 6.3 X 10^3 (1.8-7.8); NEUTROPHILS % (AUTO) 78 % (42-75); PLATELET COUNT 233 10^3/uL (130-400); RED BLOOD COUNT 3.89 10^6/uL (4.35-5.85); RED CELL DISTRIBUTION WIDTH 16.5 % (10.0-14.5); WHITE BLOOD COUNT 8.1 10^3/uL (4.3-11.0)
[2018-05-15 09:29] LABS: BUN/CREATININE RATIO 21; CALCIUM 9.7 MG/DL (8.5-10.1); CARBON DIOXIDE 26 MMOL/L (21-32); CHLORIDE 105 MMOL/L (98-107); CREATININE SERUM 0.76 MG/DL (0.60-1.30); GFR ESTIMATED > 60; GLUCOSE 101 MG/DL (70-105); POTASSIUM 4.4 MMOL/L (3.6-5.0); SODIUM 139 MMOL/L (135-145)
[~2018-05-22] VITALS: Ht 173.4 cm; Wt 78.5 kg
[~2018-05-22 09:53] MED LIST changes: +ACETAMINOPHEN 325 MG TAB (TYLENOL) CANCER CTR PO PRN; +CARBOPLATIN 425 MG in D5W 50 ML IV(CANCER CTR) 50 ML IV SCH; +DOCETAXEL IV SCH; +FOSAPREPITANT DIMEGLUMINE 150 MG in NS (IVPB) CANCER CENTER ONLY 150 ML IV SCH; +NORMAL SALINE IV SCH; +NS IV 1000 ML (CANCER CTR) IV SCH; +NS IV SCH; +PALONOSETRON HCL 0.25 MG, DEXAMETHASONE PF INJ (CANCER C 10 MG in NS (IVPB) CANCER CENT... IV SCH; +PEGFILGRASTIM 6 MG/0.6 ML ONPRO KIT SQ SCH; +PEGFILGRASTIM 6 MG/0.6ML NEULASTA SC SCH; +PERTUZUMAB 420 MG in NS (IVPB) CANCER CENTER 250 ML IV SCH; +PERTUZUMAB 840 MG in NS (IVPB) CANCER CENTER 250 ML IV SCH; +TRASTUZUMAB IV SCH; +diphenhydrAMINE 25 MG TAB (BENADRYL) CANCER CENTER PO ONE; +diphenhydrAMINE 25 MG TAB (BENADRYL) CANCER CENTER PO SCH; +diphenhydrAMINE 50 MG/ML INJ (CANCER CENTER) IV PRN
[2018-05-22 10:33] LABS: BASOPHILS % (AUTO) 0 % (0-10); EOSINOPHILS % (AUTO) 0 % (0-10); HEMATOCRIT 35 % (35-52); HEMOGLOBIN 11.8 G/DL (11.5-16.0); LYMPHOCYTES # (AUTO) 0.5 X 10^3 (1.0-4.0); LYMPHOCYTES % (AUTO) 5 % (12-44); MEAN CORPUSCULAR HEMOGLOBIN 32 PG (25-34); MEAN CORPUSCULAR HGB CONC 34 G/DL (32-36); MEAN CORPUSCULAR VOLUME 94 FL (80-99); MEAN PLATELET VOLUME 8.5 FL (7.4-10.4); MONOCYTES # (AUTO) 0.2 X 10^3 (0.0-1.0); MONOCYTES % (AUTO) 2 % (0-12); NEUTROPHILS # (AUTO) 9.4 X 10^3 (1.8-7.8); NEUTROPHILS % (AUTO) 94 % (42-75); PLATELET COUNT 308 10^3/uL (130-400); RED BLOOD COUNT 3.68 10^6/uL (4.35-5.85); RED CELL DISTRIBUTION WIDTH 16.5 % (10.0-14.5); WHITE BLOOD COUNT 10.1 10^3/uL (4.3-11.0)
[2018-05-22 10:53] LABS: ALANINE AMINOTRANSFERASE 45 U/L (0-55); ALBUMIN 4.4 GM/DL (3.2-4.5); ALKALINE PHOSPHATASE 63 U/L (40-136); BILIRUBIN,TOTAL 0.4 MG/DL (0.1-1.0); BUN/CREATININE RATIO 19; CALCIUM 9.8 MG/DL (8.5-10.1); CARBON DIOXIDE 22 MMOL/L (21-32); CHLORIDE 108 MMOL/L (98-107); CREATININE SERUM 0.75 MG/DL (0.60-1.30); GFR ESTIMATED > 60; GLUCOSE 139 MG/DL (70-105); MAGNESIUM 2.3 MG/DL (1.8-2.4); SODIUM 140 MMOL/L (135-145); TOTAL PROTEIN 6.9 GM/DL (6.4-8.2)
== END 2018-05-23 | disposition home or self-care (01) ==
LOC: ONC 09:53
PROVIDERS: ATTEND Internal Medicine Hematology & Oncology
DX: Z51.11 Encounter for antineoplastic chemotherapy (principal); C50.411 Malignant neoplasm of upper-outer quadrant of right female breast; C77.3 Secondary and unspecified malignant neoplasm of axilla and upper limb lymph nodes; G43.909 Migraine, unspecified, not intractable, without status migrainosus; Z17.1 Estrogen receptor negative status [ER-]; Z79.899 Other long term (current) drug therapy
CPT/HCPCS: 36415; 36591; 80048; 80053; 81000; 83735; 85025; 96367; 96372; 96375; 96377; 96413; 96417; 99213; 99214

== ENCOUNTER 2018-06-05 09:51 | Outpatient (RCR) | payer BC ==
[2018-05-29 09:27] LABS: HEMATOCRIT 36 % (35-52); HEMOGLOBIN 12.3 G/DL (11.5-16.0); MEAN CORPUSCULAR HEMOGLOBIN 32 PG (25-34); MEAN CORPUSCULAR HGB CONC 34 G/DL (32-36); MEAN CORPUSCULAR VOLUME 94 FL (80-99); MEAN PLATELET VOLUME 8.8 FL (7.4-10.4); PLATELET COUNT 209 10^3/uL (130-400); RED BLOOD COUNT 3.84 10^6/uL (4.35-5.85); RED CELL DISTRIBUTION WIDTH 16.1 % (10.0-14.5)
[2018-05-29 09:47] LABS: BUN/CREATININE RATIO 27; CALCIUM 9.8 MG/DL (8.5-10.1); CARBON DIOXIDE 27 MMOL/L (21-32); CHLORIDE 106 MMOL/L (98-107); CREATININE SERUM 0.78 MG/DL (0.60-1.30); GFR ESTIMATED > 60; GLUCOSE 104 MG/DL (70-105); POTASSIUM 4.6 MMOL/L (3.6-5.0); SODIUM 141 MMOL/L (135-145)
[~2018-06-05 09:51] MED LIST changes: -ACETAMINOPHEN 325 MG TAB (TYLENOL) CANCER CTR PO PRN; -CARBOPLATIN 425 MG in D5W 50 ML IV(CANCER CTR) 50 ML IV SCH; -DOCETAXEL IV SCH; -FOSAPREPITANT DIMEGLUMINE 150 MG in NS (IVPB) CANCER CENTER ONLY 150 ML IV SCH; -NORMAL SALINE IV SCH; -NS IV 1000 ML (CANCER CTR) IV SCH; -NS IV SCH; -PALONOSETRON HCL 0.25 MG, DEXAMETHASONE PF INJ (CANCER C 10 MG in NS (IVPB) CANCER CENT... IV SCH; -PEGFILGRASTIM 6 MG/0.6 ML ONPRO KIT SQ SCH; -PEGFILGRASTIM 6 MG/0.6ML NEULASTA SC SCH; -PERTUZUMAB 420 MG in NS (IVPB) CANCER CENTER 250 ML IV SCH; -PERTUZUMAB 840 MG in NS (IVPB) CANCER CENTER 250 ML IV SCH; -TRASTUZUMAB IV SCH; -diphenhydrAMINE 25 MG TAB (BENADRYL) CANCER CENTER PO ONE; -diphenhydrAMINE 25 MG TAB (BENADRYL) CANCER CENTER PO SCH; -diphenhydrAMINE 50 MG/ML INJ (CANCER CENTER) IV PRN
[2018-06-05 10:14] LABS: BASOPHILS % (AUTO) 0 % (0-10); EOSINOPHILS % (AUTO) 0 % (0-10); HEMATOCRIT 36 % (35-52); HEMOGLOBIN 11.5 G/DL (11.5-16.0); LYMPHOCYTES # (AUTO) 1.4 X 10^3 (1.0-4.0); LYMPHOCYTES % (AUTO) 14 % (12-44); MEAN CORPUSCULAR HEMOGLOBIN 31 PG (25-34); MEAN CORPUSCULAR HGB CONC 32 G/DL (32-36); MEAN CORPUSCULAR VOLUME 96 FL (80-99); MEAN PLATELET VOLUME 8.6 FL (7.4-10.4); MONOCYTES # (AUTO) 0.6 X 10^3 (0.0-1.0); MONOCYTES % (AUTO) 5 % (0-12); NEUTROPHILS # (AUTO) 8.2 X 10^3 (1.8-7.8); NEUTROPHILS % (AUTO) 80 % (42-75); PLATELET COUNT 243 10^3/uL (130-400); WHITE BLOOD COUNT 10.2 10^3/uL (4.3-11.0)
[2018-06-05 10:29] LABS: BUN/CREATININE RATIO 24; CALCIUM 9.4 MG/DL (8.5-10.1); CARBON DIOXIDE 25 MMOL/L (21-32); CHLORIDE 109 MMOL/L (98-107); CREATININE SERUM 0.79 MG/DL (0.60-1.30); GFR ESTIMATED > 60; GLUCOSE 104 MG/DL (70-105); POTASSIUM 4.5 MMOL/L (3.6-5.0); SODIUM 143 MMOL/L (135-145)
== END 2018-06-10 | disposition home or self-care (01) ==
LOC: ONC 09:51
PROVIDERS: ATTEND Internal Medicine Hematology & Oncology
DX: C50.411 Malignant neoplasm of upper-outer quadrant of right female breast (principal); C77.3 Secondary and unspecified malignant neoplasm of axilla and upper limb lymph nodes; G43.909 Migraine, unspecified, not intractable, without status migrainosus; Z17.1 Estrogen receptor negative status [ER-]; Z79.899 Other long term (current) drug therapy
CPT/HCPCS: 36415; 80048; 85025

== ENCOUNTER → 2018-06-28 | Outpatient (CLI) | payer BC | LOC: CARD 09:16 | PROVIDERS: ATTEND Internal Medicine Hematology & Oncology | DX: Z01.89 Encounter for other specified special examinations (principal); C50.411 Malignant neoplasm of upper-outer quadrant of right female breast; C77.3 Secondary and unspecified malignant neoplasm of axilla and upper limb lymph nodes; I08.1 Rheumatic disorders of both mitral and tricuspid valves | CPT/HCPCS: 93306 ==

== ENCOUNTER 2018-07-20 13:57 | Outpatient (CLI) | payer BC ==
[~2018-07-20] VITALS: Ht 177.8 cm; Wt 82.6 kg
== END 2018-07-20 14:02 | disposition home or self-care (01) ==
LOC: PREOP 13:57
PROVIDERS: ATTEND Surgery
DX: Z01.818 Encounter for other preprocedural examination (principal)

== ENCOUNTER 2018-07-25 08:06 | Day surgery (SDC) | payer BC ==
[~2018-07-25] VITALS: Ht 177.8 cm; Wt 82.6 kg
[2018-07-25 08:25] VITALS: BP 126/87
[2018-07-25] MEDS ORDERED: SCOPOLAMINE 1.5 MG (TRANSDERM-SCOP) PATCH TOP ONE (08:30)
[2018-07-25] MEDS ORDERED: FAMOTIDINE 20MG/2ML IV (PEPCID) IV ONE (08:30)
[2018-07-25] MEDS ORDERED: ONDANSETRON 4 MG/2 ML (SDV) Z0FRAN IV ONE (08:30)
[2018-07-25] MEDS ORDERED: MIDAZOLAM 2 MG/2 ML (VERSED) VIAL IV ONE (08:30)
[2018-07-25] MEDS ORDERED: LIDOCAINE 1% INJ 20 ML 20 ML VIAL ONE (08:54)
[2018-07-25] MEDS ORDERED: LIDOCAINE 1% INJ 20 ML 20 ML VIAL INJ ONE (09:00)
--- NOTE | 2018-07-25 09:02 | Progress Note-Pre Operative ---
Pre-Operative Progress Note H&P Reviewed The H&P was reviewed, patient examined and no changes noted. Date Seen by Provider: Jul 12, 2018 Time Seen by Provider: 14:00 Date H&P Reviewed: Jul 25, 2018 Time H&P Reviewed: 08:00 Pre-Operative Diagnosis: Right breast cancer DARA RANGEL MD Jul 25, 2018 09:02
[2018-07-25] MEDS ORDERED: ceFAZolin 2 GM IV Premixed 50 ML IV ONE (09:15)
[2018-07-25] MEDS: LACTATED RINGERS 1,000 ML IV PRN ×2 (09:59→13:20)
[2018-07-25] MEDS ORDERED: BUP/EPI 0.5% 1:200,000 (SENSORCAINE) 30 ML VIAL ONE (10:03)
[2018-07-25] MEDS ORDERED: LIDOCAINE PF 2% 5 ML (XYLOCAINE) VIAL ONE (10:08)
[2018-07-25] MEDS ORDERED: DEXAMETHASONE 10 MG/ML (DECADRON) 1 ML VIAL ONE (10:08)
[2018-07-25] MEDS ORDERED: proPOfol 200 MG/20 ML (DIPRIVAN) VIAL IV ONE ×2 (10:08→11:51)
[2018-07-25] MEDS ORDERED: ONDANSETRON 4 MG/2 ML (SDV) Z0FRAN ONE (10:08)
[2018-07-25] MEDS ORDERED: fentaNYL INJECTION 100 MCG/2 ML AMP ONE ×2 (10:09→12:27)
[2018-07-25] MEDS ORDERED: SEVOFLURANE (ULTANE) 15 ML INHAL SOLN ONE ×8 (10:12→13:10)
[2018-07-25] MEDS ORDERED: OXYC1TAB87 PO (11:21)
--- NOTE | 2018-07-25 11:22 | Discharge Inst-Simple/Standard ---
Discharge Inst-Standard Discharge Medications New, Converted or Re-Newed RX: RX on Chart Patient Instructions/Follow Up Plan of Care/Instructions/FU: Sressing over the breast off in 48 hours. Please educate on the use of CYNTHIA and monitoring output on a 24-hour basis. My staff will call her once the drain is to be removed Activity as Tolerated: Yes Discharge Diet: No Restrictions DARA RANGEL MD Jul 25, 2018 11:22
[2018-07-25] MEDS ORDERED: SUCCINYLCHOLINE INJ 100 MG/5 ML SYR ONE (11:51)
--- NOTE | 2018-07-25 13:25 | Operative Report ---
Operative Report Date of Procedure/Surgery Jul 25, 2018 Surgeon (s) DARA RANGEL MD Oyster Planter (s): N/A Post-Operative Diagnosis same Procedure Performed 1.needle localized lumpectomy right breast 2. 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 She returned for breast conservation surgical therapy. The primary tumor itself became invisible by radiologic imaging following chemotherapy. She was offered wire guided lumpectomy with axillary lymph node dissection. Informed consent was obtained after reviewing the operative details and complications of hematoma and wound infection. Description of the procedure: Following her admission to the outpatient surgery area, the lesion was localized using require by conventional mammography technique, by our radiologist. Subsequently, she is brought to the operating room and general anesthesia induced. Ancef was administered intravenously as prophylaxis against wound infection. Sequential compression devices were placed around her legs, to minimize the risk of venous thrombosis. Right breast and axilla were prepared and draped in the usual sterile manner. Needle localized lumpectomy: Preemptive analgesia was established using 0.5 percent Marcaine with epinephrine. A 4 cm curved incision was made, centered on the wire and breast tissue surrounding the target lesion excised using Harmonic scalpel. The tissue with the hook wire in place was sent for conventional mammographic examination, confirming adequate excision with the clip in place. Hemostasis was achieved using cautery and ligaclips and the cavity irrigated with warm saline. The incision was then closed using 3-0 Vicryl for the dermal layer and 4-0 Vicryl for skin, in a subcuticular fashion. Level III axillary dissection: After establishing preemptive analgesia in a similar fashion, a 5 cm incision was made, inferior to the axillary hair line. Axillary tissue and visibly enlarged lymph nodes were removed, well past the medial end of the pectoralis minor muscle,en bloc, constituting a level III axillary dissection. The nerve to the latissimus dorsi muscle and the long thoracic nerve were identified and carefully preserved throughout the procedure. The tissue was oriented with a silk suture at the apex and sent for formal histologic examination. Hemostasis was achieved using ligaclips and the axilla irrigated with warm saline. A 10 Japanese Art-Castaneda drain was left in the axilla, being secured using 2-0 silk sutures. The incision was then closed using 3-0 Vicryl for the subcutaneous tissue and 4-0 Vicryl for skin, in a subcuticular fashion. She tolerated the procedure well, was extubated in the operating room and taken to the recovery room in a stable condition. Findings of the Procedure see operative report Allergies and Home Medications Allergies Coded Allergies: No Known Drug Allergies (Unverified , 02/22/18) Home Medications Multivitamin 1 Each Tablet, 1 EACH PO DAILY, (Reported) Oxycodone HCl/Acetaminophen 1 Each Tablet, 1 TAB PO Q4H PRN for PAIN-MODERATE Prescribed by: DARA RANGEL on 07/25/18 1121 Patient Home Medication List Home Medication List Reviewed: Yes DARA RANGEL MD Jul 25, 2018 13:25
[2018-07-25] MEDS ORDERED: morphine INJ 10 MG/ML 1ML (SYR OR VIAL) IVP ONE (13:30)
[2018-07-25] MEDS ORDERED: ONDANSETRON 4 MG/2 ML (SDV) Z0FRAN IVP PRN (13:30)
[2018-07-25] MEDS ORDERED: HYDROmorphone 2 MG/ML VIAL (DILAUDID) IV ONE (13:30)
[2018-07-25] MEDS ORDERED: MEPERIDINE (DEMEROL) INJ 50 MG/ML IVP ONE (13:30)
--- NOTE | 2018-07-25 13:55 | Anesthesia-General Post-Op ---
General Patient Condition Mental Status/LOC: Same as Preop Cardiovascular: Satisfactory Nausea/Vomiting: Absent Respiratory: Satisfactory Pain: Controlled Complications: Absent Post Op Complications Complications None Follow Up Care/Instructions Patient Instructions None needed. Anesthesia/Patient Condition Patient Condition Patient is doing well, no complaints, stable vital signs, no apparent adverse anesthesia problems. No complications reported per nursing. EVELIO NYE CRNA Jul 25, 2018 13:55
[2018-07-25 14:25] VITALS: BP 128/85
[2018-07-25 14:30] VITALS: BP 128/85
[2018-07-25 14:55] VITALS: BP 127/82
[2018-07-25 15:25] VITALS: BP 127/79
[2018-07-25 15:35] VITALS: BP 127/79
--- NOTE | 2018-07-25 19:09 | Diagnostic Imaging Report ---
INDICATION: Right breast carcinoma. Patient presents for right breast needle localization surgery prior to lumpectomy. The patient was brought to the mammography suite, positioned in sitting position. The right breast was placed in the lateral medial positioning. Stereotactic imaging of the right breast was performed in an attempt to target the clip in the upper outer right breast. The clip was targeted. The right breast was then prepped and draped in the usual sterile fashion. A small amount of 1% lidocaine was utilized for local anesthesia. Localization needle was advanced from a lateral approach, placed with its tip beyond the clip. Additional stereotactic imaging was performed to confirm appropriate needle position. The hookwire was then deployed and the needle was removed. Followup imaging does show the hookwire in good position adjacent to the clip. Patient tolerated the procedure well. The wire was affixed to the patient's skin and the patient was sent to same day surgery in satisfactory condition. IMPRESSION: Successful wire localization procedure of the clip in the upper-outer right breast using mammography and stereotactic technique. Dictated by: Dictated on workstation # [id number]
--- NOTE | 2018-07-25 19:25 | Diagnostic Imaging Report ---
INDICATION: Right breast carcinoma. Patient is status post needle localization and lumpectomy. Specimen radiograph was obtained. The specimen does contain the hookwire as well as the adjacent localizer clip. There are several calcifications in the sample adjacent to the hookwire as well. IMPRESSION: Specimen radiograph does contain the localizer clip. Dictated by: Dictated on workstation # [id number]
[2018-07-28] MEDS ORDERED: SCOPOLAMINE PATCH REMOVAL TP SCH (08:29)
== END 2018-07-25 16:15 | disposition home or self-care (01) ==
LOC: RAD 08:06
PROVIDERS: ATTEND Surgery
DX: C50.411 Malignant neoplasm of upper-outer quadrant of right female breast (principal); Z98.890 Other specified postprocedural states
CPT/HCPCS: 76098; 87081

== ENCOUNTER 2018-09-05 08:48 | Outpatient (RCR) | payer BC ==
[2018-06-12 09:47] LABS: BASOPHILS % (AUTO) 0 % (0-10); EOSINOPHILS % (AUTO) 0 % (0-10); HEMATOCRIT 33 % (35-52); HEMOGLOBIN 11.2 G/DL (11.5-16.0); LYMPHOCYTES # (AUTO) 0.5 X 10^3 (1.0-4.0); LYMPHOCYTES % (AUTO) 5 % (12-44); MEAN CORPUSCULAR HEMOGLOBIN 32 PG (25-34); MEAN CORPUSCULAR HGB CONC 34 G/DL (32-36); MEAN CORPUSCULAR VOLUME 95 FL (80-99); MEAN PLATELET VOLUME 8.3 FL (7.4-10.4); MONOCYTES # (AUTO) 0.5 X 10^3 (0.0-1.0); MONOCYTES % (AUTO) 4 % (0-12); NEUTROPHILS # (AUTO) 9.8 X 10^3 (1.8-7.8); NEUTROPHILS % (AUTO) 91 % (42-75); PLATELET COUNT 313 10^3/uL (130-400); RED CELL DISTRIBUTION WIDTH 16.1 % (10.0-14.5); WHITE BLOOD COUNT 10.8 10^3/uL (4.3-11.0)
[2018-06-12 10:09] LABS: ALANINE AMINOTRANSFERASE 48 U/L (0-55); ALBUMIN 4.4 GM/DL (3.2-4.5); ALKALINE PHOSPHATASE 55 U/L (40-136); BILIRUBIN,TOTAL 0.5 MG/DL (0.1-1.0); BUN/CREATININE RATIO 24; CALCIUM 10.1 MG/DL (8.5-10.1); CARBON DIOXIDE 21 MMOL/L (21-32); CHLORIDE 108 MMOL/L (98-107); CREATININE SERUM 0.74 MG/DL (0.60-1.30); GFR ESTIMATED > 60; GLUCOSE 117 MG/DL (70-105); MAGNESIUM 2.1 MG/DL (1.8-2.4); POTASSIUM 4.1 MMOL/L (3.6-5.0); SODIUM 142 MMOL/L (135-145)
[2018-06-19 09:18] LABS: BASOPHILS # (AUTO) 0.2 10^3/uL (0.0-0.1); BASOPHILS % (AUTO) 1 % (0-10); EOSINOPHILS % (AUTO) 0 % (0-10); HEMATOCRIT 37 % (35-52); HEMOGLOBIN 12.1 G/DL (11.5-16.0); LYMPHOCYTES # (AUTO) 2.9 X 10^3 (1.0-4.0); LYMPHOCYTES % (AUTO) 17 % (12-44); MEAN CORPUSCULAR HEMOGLOBIN 32 PG (25-34); MEAN CORPUSCULAR HGB CONC 33 G/DL (32-36); MEAN CORPUSCULAR VOLUME 96 FL (80-99); MEAN PLATELET VOLUME 9.1 FL (7.4-10.4); MONOCYTES # (AUTO) 2.7 X 10^3 (0.0-1.0); MONOCYTES % (AUTO) 16 % (0-12); NEUTROPHILS # (AUTO) 11.7 X 10^3 (1.8-7.8); NEUTROPHILS % (AUTO) 67 % (42-75); PLATELET COUNT 211 10^3/uL (130-400); RED BLOOD COUNT 3.84 10^6/uL (4.35-5.85); WHITE BLOOD COUNT 17.6 10^3/uL (4.3-11.0)
[2018-06-19 09:49] LABS: ALANINE AMINOTRANSFERASE 53 U/L (0-55); ALBUMIN 4.2 GM/DL (3.2-4.5); ALKALINE PHOSPHATASE 90 U/L (40-136); BILIRUBIN,TOTAL 0.4 MG/DL (0.1-1.0); BUN/CREATININE RATIO 20; CALCIUM 9.7 MG/DL (8.5-10.1); CARBON DIOXIDE 24 MMOL/L (21-32); CHLORIDE 104 MMOL/L (98-107); CREATININE SERUM 0.84 MG/DL (0.60-1.30); GFR ESTIMATED > 60; GLUCOSE 102 MG/DL (70-105); POTASSIUM 4.1 MMOL/L (3.6-5.0); SODIUM 137 MMOL/L (135-145); TOTAL PROTEIN 6.9 GM/DL (6.4-8.2)
[2018-06-26 09:48] LABS: BASOPHILS % (AUTO) 0 % (0-10); EOSINOPHILS % (AUTO) 0 % (0-10); HEMATOCRIT 37 % (35-52); HEMOGLOBIN 11.9 G/DL (11.5-16.0); LYMPHOCYTES # (AUTO) 1.4 X 10^3 (1.0-4.0); LYMPHOCYTES % (AUTO) 18 % (12-44); MEAN CORPUSCULAR HEMOGLOBIN 31 PG (25-34); MEAN CORPUSCULAR HGB CONC 32 G/DL (32-36); MEAN CORPUSCULAR VOLUME 95 FL (80-99); MEAN PLATELET VOLUME 9.1 FL (7.4-10.4); MONOCYTES # (AUTO) 0.5 X 10^3 (0.0-1.0); MONOCYTES % (AUTO) 6 % (0-12); NEUTROPHILS % (AUTO) 76 % (42-75); PLATELET COUNT 240 10^3/uL (130-400); RED BLOOD COUNT 3.88 10^6/uL (4.35-5.85)
[2018-06-26 10:21] LABS: ALANINE AMINOTRANSFERASE 32 U/L (0-55); ALBUMIN 4.1 GM/DL (3.2-4.5); ALKALINE PHOSPHATASE 77 U/L (40-136); BILIRUBIN,TOTAL 0.3 MG/DL (0.1-1.0); BUN/CREATININE RATIO 30; CALCIUM 9.5 MG/DL (8.5-10.1); CARBON DIOXIDE 23 MMOL/L (21-32); CHLORIDE 107 MMOL/L (98-107); CREATININE SERUM 0.88 MG/DL (0.60-1.30); GFR ESTIMATED > 60; GLUCOSE 94 MG/DL (70-105); SODIUM 141 MMOL/L (135-145)
[2018-07-03 09:40] LABS: BASOPHILS % (AUTO) 0 % (0-10); EOSINOPHILS % (AUTO) 0 % (0-10); HEMATOCRIT 34 % (35-52); HEMOGLOBIN 11.2 G/DL (11.5-16.0); LYMPHOCYTES % (AUTO) 21 % (12-44); MEAN CORPUSCULAR HEMOGLOBIN 31 PG (25-34); MEAN CORPUSCULAR HGB CONC 33 G/DL (32-36); MEAN CORPUSCULAR VOLUME 96 FL (80-99); MEAN PLATELET VOLUME 8.4 FL (7.4-10.4); MONOCYTES # (AUTO) 0.6 X 10^3 (0.0-1.0); MONOCYTES % (AUTO) 11 % (0-12); NEUTROPHILS # (AUTO) 3.3 X 10^3 (1.8-7.8); NEUTROPHILS % (AUTO) 67 % (42-75); PLATELET COUNT 297 10^3/uL (130-400); RED BLOOD COUNT 3.58 10^6/uL (4.35-5.85); RED CELL DISTRIBUTION WIDTH 15.8 % (10.0-14.5); WHITE BLOOD COUNT 4.9 10^3/uL (4.3-11.0)
[2018-07-03 09:53] LABS: ALANINE AMINOTRANSFERASE 28 U/L (0-55); ALKALINE PHOSPHATASE 60 U/L (40-136); BILIRUBIN,TOTAL 0.3 MG/DL (0.1-1.0); BUN/CREATININE RATIO 23; CALCIUM 9.4 MG/DL (8.5-10.1); CARBON DIOXIDE 22 MMOL/L (21-32); CHLORIDE 109 MMOL/L (98-107); CREATININE SERUM 0.75 MG/DL (0.60-1.30); GFR ESTIMATED > 60; GLUCOSE 107 MG/DL (70-105); MAGNESIUM 2.1 MG/DL (1.8-2.4); SODIUM 141 MMOL/L (135-145); TOTAL PROTEIN 6.6 GM/DL (6.4-8.2)
[2018-07-24 10:02] LABS: BASOPHILS % (AUTO) 1 % (0-10); EOSINOPHILS # (AUTO) 0.1 10^3/uL (0.0-0.3); EOSINOPHILS % (AUTO) 3 % (0-10); HEMATOCRIT 39 % (35-52); HEMOGLOBIN 12.6 G/DL (11.5-16.0); LYMPHOCYTES # (AUTO) 1.3 X 10^3 (1.0-4.0); LYMPHOCYTES % (AUTO) 24 % (12-44); MEAN CORPUSCULAR HEMOGLOBIN 30 PG (25-34); MEAN CORPUSCULAR HGB CONC 33 G/DL (32-36); MEAN CORPUSCULAR VOLUME 93 FL (80-99); MEAN PLATELET VOLUME 8.5 FL (7.4-10.4); MONOCYTES # (AUTO) 0.4 X 10^3 (0.0-1.0); MONOCYTES % (AUTO) 8 % (0-12); NEUTROPHILS # (AUTO) 3.5 X 10^3 (1.8-7.8); NEUTROPHILS % (AUTO) 65 % (42-75); PLATELET COUNT 225 10^3/uL (130-400); RED BLOOD COUNT 4.16 10^6/uL (4.35-5.85); RED CELL DISTRIBUTION WIDTH 14.1 % (10.0-14.5); WHITE BLOOD COUNT 5.4 10^3/uL (4.3-11.0)
[2018-07-24 10:21] LABS: ALANINE AMINOTRANSFERASE 28 U/L (0-55); ALBUMIN 4.3 GM/DL (3.2-4.5); ALKALINE PHOSPHATASE 62 U/L (40-136); BILIRUBIN,TOTAL 0.4 MG/DL (0.1-1.0); BUN/CREATININE RATIO 23; CALCIUM 9.9 MG/DL (8.5-10.1); CARBON DIOXIDE 23 MMOL/L (21-32); CHLORIDE 109 MMOL/L (98-107); CREATININE SERUM 0.81 MG/DL (0.60-1.30); GFR ESTIMATED > 60; GLUCOSE 104 MG/DL (70-105); SODIUM 142 MMOL/L (135-145)
[2018-08-14 09:32] LABS: BASOPHILS % (AUTO) 0 % (0-10); EOSINOPHILS # (AUTO) 0.1 10^3/uL (0.0-0.3); EOSINOPHILS % (AUTO) 3 % (0-10); HEMATOCRIT 37 % (35-52); HEMOGLOBIN 12.3 G/DL (11.5-16.0); LYMPHOCYTES # (AUTO) 1.4 X 10^3 (1.0-4.0); LYMPHOCYTES % (AUTO) 28 % (12-44); MEAN CORPUSCULAR HEMOGLOBIN 30 PG (25-34); MEAN CORPUSCULAR HGB CONC 33 G/DL (32-36); MEAN CORPUSCULAR VOLUME 89 FL (80-99); MEAN PLATELET VOLUME 8.1 FL (7.4-10.4); MONOCYTES # (AUTO) 0.5 X 10^3 (0.0-1.0); MONOCYTES % (AUTO) 10 % (0-12); NEUTROPHILS # (AUTO) 2.8 X 10^3 (1.8-7.8); NEUTROPHILS % (AUTO) 58 % (42-75); PLATELET COUNT 305 10^3/uL (130-400); RED BLOOD COUNT 4.15 10^6/uL (4.35-5.85); RED CELL DISTRIBUTION WIDTH 13.8 % (10.0-14.5); WHITE BLOOD COUNT 4.8 10^3/uL (4.3-11.0)
[2018-08-14 09:51] LABS: ALANINE AMINOTRANSFERASE 25 U/L (0-55); ALBUMIN 4.1 GM/DL (3.2-4.5); ALKALINE PHOSPHATASE 82 U/L (40-136); BILIRUBIN,TOTAL 0.4 MG/DL (0.1-1.0); BUN/CREATININE RATIO 28; CALCIUM 10.4 MG/DL (8.5-10.1); CARBON DIOXIDE 24 MMOL/L (21-32); CHLORIDE 107 MMOL/L (98-107); CREATININE SERUM 0.81 MG/DL (0.60-1.30); GFR ESTIMATED > 60; GLUCOSE 110 MG/DL (70-105); SODIUM 144 MMOL/L (135-145); TOTAL PROTEIN 7.5 GM/DL (6.4-8.2)
[~2018-09-05] VITALS: Ht 173.4 cm; Wt 80.7 kg
[~2018-09-05 08:48] MED LIST changes: +ACETAMINOPHEN 325 MG TAB (TYLENOL) CANCER CTR PO PRN; +CARBOPLATIN 425 MG in D5W 50 ML IV(CANCER CTR) 50 ML IV SCH; +DOCETAXEL IV SCH; +FOSAPREPITANT DIMEGLUMINE 150 MG in NS (IVPB) CANCER CENTER ONLY 150 ML IV SCH; +NORMAL SALINE IV SCH; +NS IV 1000 ML (CANCER CTR) IV SCH; +NS IV 500 ML (CANCER CENTER) 500 ML IV SCH; +NS IV SCH; +OXYC1TAB87 PO; +PALONOSETRON HCL 0.25 MG, DEXAMETHASONE PF INJ (CANCER C 10 MG in NS (IVPB) CANCER CENT... IV SCH; +PEGFILGRASTIM 6 MG/0.6 ML ONPRO KIT SQ SCH; +PERTUZUMAB 420 MG in NS (IVPB) CANCER CENTER 250 ML IV SCH; +TRASTUZUMAB IV SCH; +diphenhydrAMINE 25 MG TAB (BENADRYL) CANCER CENTER PO SCH
[2018-09-05 09:05] LABS: BASOPHILS % (AUTO) 1 % (0-10); EOSINOPHILS # (AUTO) 0.1 10^3/uL (0.0-0.3); EOSINOPHILS % (AUTO) 2 % (0-10); HEMATOCRIT 38 % (35-52); HEMOGLOBIN 12.2 G/DL (11.5-16.0); LYMPHOCYTES # (AUTO) 1.1 X 10^3 (1.0-4.0); LYMPHOCYTES % (AUTO) 26 % (12-44); MEAN CORPUSCULAR HEMOGLOBIN 28 PG (25-34); MEAN CORPUSCULAR HGB CONC 32 G/DL (32-36); MEAN CORPUSCULAR VOLUME 88 FL (80-99); MEAN PLATELET VOLUME 8.5 FL (7.4-10.4); MONOCYTES # (AUTO) 0.4 X 10^3 (0.0-1.0); MONOCYTES % (AUTO) 10 % (0-12); NEUTROPHILS # (AUTO) 2.8 X 10^3 (1.8-7.8); NEUTROPHILS % (AUTO) 63 % (42-75); PLATELET COUNT 235 10^3/uL (130-400); RED BLOOD COUNT 4.29 10^6/uL (4.35-5.85); RED CELL DISTRIBUTION WIDTH 14.4 % (10.0-14.5); WHITE BLOOD COUNT 4.4 10^3/uL (4.3-11.0)
[2018-09-05 09:17] LABS: BUN/CREATININE RATIO 20; CALCIUM 9.4 MG/DL (8.5-10.1); CARBON DIOXIDE 23 MMOL/L (21-32); CHLORIDE 108 MMOL/L (98-107); CREATININE SERUM 0.79 MG/DL (0.60-1.30); GFR ESTIMATED > 60; GLUCOSE 99 MG/DL (70-105); POTASSIUM 3.9 MMOL/L (3.6-5.0); SODIUM 141 MMOL/L (135-145)
== END 2018-09-10 | disposition home or self-care (01) ==
LOC: ONC 08:48
PROVIDERS: ATTEND Internal Medicine Hematology & Oncology
DX: Z51.11 Encounter for antineoplastic chemotherapy (principal); C50.411 Malignant neoplasm of upper-outer quadrant of right female breast; C77.3 Secondary and unspecified malignant neoplasm of axilla and upper limb lymph nodes; G43.909 Migraine, unspecified, not intractable, without status migrainosus; K59.00 Constipation, unspecified; Z17.1 Estrogen receptor negative status [ER-]; Z79.899 Other long term (current) drug therapy; Z76.89 Persons encountering health services in other specified circumstances
CPT/HCPCS: 36415; 36591; 77290; 77295; 77300; 77334; 77470; 80048; 80053; 83735; 85025; 96367; 96375; 96377; 96413; 96417; 99204; 99213; J2505

== ENCOUNTER → 2018-10-29 | Outpatient (CLI) | payer BC | LOC: CARD 10:06 | PROVIDERS: ATTEND Internal Medicine Hematology & Oncology | DX: Z51.81 Encounter for therapeutic drug level monitoring (principal); C50.411 Malignant neoplasm of upper-outer quadrant of right female breast; C77.3 Secondary and unspecified malignant neoplasm of axilla and upper limb lymph nodes; I08.1 Rheumatic disorders of both mitral and tricuspid valves; Z79.899 Other long term (current) drug therapy | CPT/HCPCS: 93306 ==

== ENCOUNTER 2018-11-27 09:08 | Outpatient (RCR) | payer BC ==
[2018-09-25 08:52] LABS: BASOPHILS % (AUTO) 1 % (0-10); EOSINOPHILS # (AUTO) 0.1 10^3/uL (0.0-0.3); EOSINOPHILS % (AUTO) 2 % (0-10); HEMATOCRIT 40 % (35-52); HEMOGLOBIN 12.9 G/DL (11.5-16.0); LYMPHOCYTES # (AUTO) 0.7 X 10^3 (1.0-4.0); LYMPHOCYTES % (AUTO) 17 % (12-44); MEAN CORPUSCULAR HEMOGLOBIN 28 PG (25-34); MEAN CORPUSCULAR HGB CONC 32 G/DL (32-36); MEAN CORPUSCULAR VOLUME 88 FL (80-99); MEAN PLATELET VOLUME 8.3 FL (7.4-10.4); MONOCYTES # (AUTO) 0.3 X 10^3 (0.0-1.0); MONOCYTES % (AUTO) 8 % (0-12); NEUTROPHILS # (AUTO) 3.2 X 10^3 (1.8-7.8); NEUTROPHILS % (AUTO) 73 % (42-75); PLATELET COUNT 251 10^3/uL (130-400); RED CELL DISTRIBUTION WIDTH 14.9 % (10.0-14.5); WHITE BLOOD COUNT 4.4 10^3/uL (4.3-11.0)
[2018-09-25 09:11] LABS: ALANINE AMINOTRANSFERASE 32 U/L (0-55); ALBUMIN 4.2 GM/DL (3.2-4.5); ALKALINE PHOSPHATASE 68 U/L (40-136); BILIRUBIN,TOTAL 0.5 MG/DL (0.1-1.0); BUN/CREATININE RATIO 23; CALCIUM 9.8 MG/DL (8.5-10.1); CARBON DIOXIDE 24 MMOL/L (21-32); CHLORIDE 105 MMOL/L (98-107); CREATININE SERUM 0.92 MG/DL (0.60-1.30); GFR ESTIMATED > 60; GLUCOSE 105 MG/DL (70-105); POTASSIUM 4.2 MMOL/L (3.6-5.0); SODIUM 140 MMOL/L (135-145)
[2018-10-16 09:09] LABS: BASOPHILS % (AUTO) 0 % (0-10); EOSINOPHILS # (AUTO) 0.1 10^3/uL (0.0-0.3); EOSINOPHILS % (AUTO) 2 % (0-10); HEMATOCRIT 39 % (35-52); HEMOGLOBIN 13.1 G/DL (11.5-16.0); LYMPHOCYTES # (AUTO) 0.6 X 10^3 (1.0-4.0); LYMPHOCYTES % (AUTO) 12 % (12-44); MEAN CORPUSCULAR HEMOGLOBIN 29 PG (25-34); MEAN CORPUSCULAR HGB CONC 33 G/DL (32-36); MEAN CORPUSCULAR VOLUME 86 FL (80-99); MEAN PLATELET VOLUME 8.3 FL (7.4-10.4); MONOCYTES # (AUTO) 0.4 X 10^3 (0.0-1.0); MONOCYTES % (AUTO) 7 % (0-12); NEUTROPHILS # (AUTO) 3.8 X 10^3 (1.8-7.8); NEUTROPHILS % (AUTO) 79 % (42-75); PLATELET COUNT 252 10^3/uL (130-400); RED CELL DISTRIBUTION WIDTH 15.8 % (10.0-14.5); WHITE BLOOD COUNT 4.9 10^3/uL (4.3-11.0)
[2018-10-16 09:28] LABS: ALANINE AMINOTRANSFERASE 25 U/L (0-55); ALBUMIN 4.3 GM/DL (3.2-4.5); ALKALINE PHOSPHATASE 69 U/L (40-136); BILIRUBIN,TOTAL 0.4 MG/DL (0.1-1.0); BUN/CREATININE RATIO 21; CALCIUM 9.8 MG/DL (8.5-10.1); CARBON DIOXIDE 23 MMOL/L (21-32); CHLORIDE 106 MMOL/L (98-107); CREATININE SERUM 0.81 MG/DL (0.60-1.30); GFR ESTIMATED > 60; GLUCOSE 105 MG/DL (70-105); POTASSIUM 4.2 MMOL/L (3.6-5.0); SODIUM 140 MMOL/L (135-145); TOTAL PROTEIN 7.1 GM/DL (6.4-8.2)
[2018-11-06 09:25] LABS: BASOPHILS % (AUTO) 1 % (0-10); EOSINOPHILS # (AUTO) 0.1 10^3/uL (0.0-0.3); EOSINOPHILS % (AUTO) 2 % (0-10); HEMATOCRIT 37 % (35-52); HEMOGLOBIN 12.4 G/DL (11.5-16.0); LYMPHOCYTES # (AUTO) 0.6 X 10^3 (1.0-4.0); LYMPHOCYTES % (AUTO) 14 % (12-44); MEAN CORPUSCULAR HEMOGLOBIN 29 PG (25-34); MEAN CORPUSCULAR HGB CONC 33 G/DL (32-36); MEAN CORPUSCULAR VOLUME 86 FL (80-99); MEAN PLATELET VOLUME 8.4 FL (7.4-10.4); MONOCYTES # (AUTO) 0.5 X 10^3 (0.0-1.0); MONOCYTES % (AUTO) 11 % (0-12); NEUTROPHILS # (AUTO) 3.2 X 10^3 (1.8-7.8); NEUTROPHILS % (AUTO) 73 % (42-75); PLATELET COUNT 239 10^3/uL (130-400); WHITE BLOOD COUNT 4.4 10^3/uL (4.3-11.0)
[2018-11-06 09:45] LABS: ALANINE AMINOTRANSFERASE 31 U/L (0-55); ALBUMIN 4.2 GM/DL (3.2-4.5); ALKALINE PHOSPHATASE 74 U/L (40-136); BILIRUBIN,TOTAL 0.5 MG/DL (0.1-1.0); BUN/CREATININE RATIO 31; CALCIUM 9.7 MG/DL (8.5-10.1); CARBON DIOXIDE 24 MMOL/L (21-32); CHLORIDE 107 MMOL/L (98-107); CREATININE SERUM 0.84 MG/DL (0.60-1.30); GFR ESTIMATED > 60; GLUCOSE 97 MG/DL (70-105); SODIUM 140 MMOL/L (135-145); TOTAL PROTEIN 6.8 GM/DL (6.4-8.2)
[~2018-11-27] VITALS: Ht 173.4 cm; Wt 83.0 kg
[~2018-11-27 09:08] MED LIST changes: -ACETAMINOPHEN 325 MG TAB (TYLENOL) CANCER CTR PO PRN; -CARBOPLATIN 425 MG in D5W 50 ML IV(CANCER CTR) 50 ML IV SCH; -DOCETAXEL IV SCH; -FOSAPREPITANT DIMEGLUMINE 150 MG in NS (IVPB) CANCER CENTER ONLY 150 ML IV SCH; -NORMAL SALINE IV SCH; -NS IV 1000 ML (CANCER CTR) IV SCH; -PALONOSETRON HCL 0.25 MG, DEXAMETHASONE PF INJ (CANCER C 10 MG in NS (IVPB) CANCER CENT... IV SCH; -PEGFILGRASTIM 6 MG/0.6 ML ONPRO KIT SQ SCH; -PERTUZUMAB 420 MG in NS (IVPB) CANCER CENTER 250 ML IV SCH; -diphenhydrAMINE 25 MG TAB (BENADRYL) CANCER CENTER PO SCH
[2018-11-27 09:26] LABS: BASOPHILS % (AUTO) 0 % (0-10); EOSINOPHILS # (AUTO) 0.1 10^3/uL (0.0-0.3); EOSINOPHILS % (AUTO) 2 % (0-10); HEMATOCRIT 39 % (35-52); HEMOGLOBIN 12.8 G/DL (11.5-16.0); LYMPHOCYTES # (AUTO) 0.7 X 10^3 (1.0-4.0); LYMPHOCYTES % (AUTO) 15 % (12-44); MEAN CORPUSCULAR HEMOGLOBIN 29 PG (25-34); MEAN CORPUSCULAR HGB CONC 33 G/DL (32-36); MEAN CORPUSCULAR VOLUME 88 FL (80-99); MEAN PLATELET VOLUME 8.5 FL (7.4-10.4); MONOCYTES # (AUTO) 0.4 X 10^3 (0.0-1.0); MONOCYTES % (AUTO) 9 % (0-12); NEUTROPHILS # (AUTO) 3.5 X 10^3 (1.8-7.8); NEUTROPHILS % (AUTO) 73 % (42-75); PLATELET COUNT 246 10^3/uL (130-400); RED CELL DISTRIBUTION WIDTH 16.4 % (10.0-14.5); WHITE BLOOD COUNT 4.8 10^3/uL (4.3-11.0)
[2018-11-27 09:44] LABS: ALANINE AMINOTRANSFERASE 25 U/L (0-55); ALBUMIN 4.2 GM/DL (3.2-4.5); ALKALINE PHOSPHATASE 81 U/L (40-136); BILIRUBIN,TOTAL 0.4 MG/DL (0.1-1.0); BUN/CREATININE RATIO 21; CALCIUM 9.7 MG/DL (8.5-10.1); CARBON DIOXIDE 25 MMOL/L (21-32); CHLORIDE 105 MMOL/L (98-107); CREATININE SERUM 0.84 MG/DL (0.60-1.30); GFR ESTIMATED > 60; GLUCOSE 97 MG/DL (70-105); POTASSIUM 4.1 MMOL/L (3.6-5.0); SODIUM 136 MMOL/L (135-145); TOTAL PROTEIN 6.9 GM/DL (6.4-8.2)
== END 2018-12-11 | disposition home or self-care (01) ==
LOC: ONC 09:08
PROVIDERS: ATTEND Internal Medicine Hematology & Oncology
DX: Z51.11 Encounter for antineoplastic chemotherapy (principal); Z51.0 Encounter for antineoplastic radiation therapy; C50.411 Malignant neoplasm of upper-outer quadrant of right female breast; C77.3 Secondary and unspecified malignant neoplasm of axilla and upper limb lymph nodes; G43.909 Migraine, unspecified, not intractable, without status migrainosus; K59.00 Constipation, unspecified; Z17.1 Estrogen receptor negative status [ER-]; Z79.899 Other long term (current) drug therapy; Z76.89 Persons encountering health services in other specified circumstances
CPT/HCPCS: 36591; 77280; 77307; 77334; 77336; 77417; 80053; 84443; 85025; 96413

== ENCOUNTER → 2019-02-13 | Outpatient (CLI) | payer BC ==
[~2019-02-13] MED LIST changes: -NS IV 500 ML (CANCER CENTER) 500 ML IV SCH; -NS IV SCH; -TRASTUZUMAB IV SCH
--- NOTE | 2019-02-13 11:29 | Diagnostic Imaging Report ---
INDICATION: Right breast carcinoma status post lumpectomy. COMPARISON: 02/08/2018 and 07/25/2018. TECHNIQUE: 2D and 3D bilateral diagnostic mammography was performed with CAD. FINDINGS: Both breasts remain heterogeneously dense, limiting the sensitivity of mammography. Since the prior study, the patient has undergone lumpectomy in the upper outer right breast at posterior depth. Lumpectomy changes are noted. There is skin thickening of the right breast which is likely post therapeutic as well. No discrete mass or malignant appearing microcalcifications are seen. The left breast is stable. The previously noted enlarged lymph nodes in the right axilla are no longer visualized. IMPRESSION: Post therapeutic changes. Continued 6 month followup is recommended. ACR BI-RADS Category 3: Probably benign findings. Result letter will be mailed to the patient. Note: At least 10% of breast cancer is not imaged by mammography. Dictated by: Dictated on workstation # [id number]
== END ==
LOC: RAD 08:52
PROVIDERS: ATTEND Internal Medicine Hematology & Oncology
DX: Z51.81 Encounter for therapeutic drug level monitoring (principal); C50.411 Malignant neoplasm of upper-outer quadrant of right female breast; Z98.890 Other specified postprocedural states
CPT/HCPCS: 77066; 93306

== ENCOUNTER 2019-02-19 09:11 | Outpatient (RCR) | payer BC ==
[2018-12-18 09:04] LABS: BASOPHILS % (AUTO) 1 % (0-10); EOSINOPHILS # (AUTO) 0.1 10^3/uL (0.0-0.3); EOSINOPHILS % (AUTO) 3 % (0-10); HEMATOCRIT 37 % (35-52); HEMOGLOBIN 12.1 G/DL (11.5-16.0); LYMPHOCYTES # (AUTO) 0.7 X 10^3 (1.0-4.0); LYMPHOCYTES % (AUTO) 18 % (12-44); MEAN CORPUSCULAR HEMOGLOBIN 30 PG (25-34); MEAN CORPUSCULAR HGB CONC 33 G/DL (32-36); MEAN CORPUSCULAR VOLUME 89 FL (80-99); MEAN PLATELET VOLUME 8.2 FL (7.4-10.4); MONOCYTES # (AUTO) 0.4 X 10^3 (0.0-1.0); MONOCYTES % (AUTO) 11 % (0-12); NEUTROPHILS # (AUTO) 2.7 X 10^3 (1.8-7.8); NEUTROPHILS % (AUTO) 67 % (42-75); PLATELET COUNT 251 10^3/uL (130-400); RED CELL DISTRIBUTION WIDTH 15.6 % (10.0-14.5); WHITE BLOOD COUNT 4.1 10^3/uL (4.3-11.0)
[2018-12-18 09:27] LABS: ALANINE AMINOTRANSFERASE 37 U/L (0-55); ALBUMIN 4.1 GM/DL (3.2-4.5); ALKALINE PHOSPHATASE 76 U/L (40-136); BILIRUBIN,TOTAL 0.4 MG/DL (0.1-1.0); BUN/CREATININE RATIO 32; CALCIUM 9.7 MG/DL (8.5-10.1); CARBON DIOXIDE 25 MMOL/L (21-32); CHLORIDE 108 MMOL/L (98-107); CREATININE SERUM 0.75 MG/DL (0.60-1.30); GFR ESTIMATED > 60; GLUCOSE 98 MG/DL (70-105); POTASSIUM 4.1 MMOL/L (3.6-5.0); SODIUM 140 MMOL/L (135-145); TOTAL PROTEIN 6.7 GM/DL (6.4-8.2)
[2019-01-08 09:08] LABS: BASOPHILS % (AUTO) 1 % (0-10); EOSINOPHILS # (AUTO) 0.2 10^3/uL (0.0-0.3); EOSINOPHILS % (AUTO) 3 % (0-10); HEMATOCRIT 39 % (35-52); HEMOGLOBIN 12.9 G/DL (11.5-16.0); LYMPHOCYTES # (AUTO) 0.7 X 10^3 (1.0-4.0); LYMPHOCYTES % (AUTO) 14 % (12-44); MEAN CORPUSCULAR HEMOGLOBIN 29 PG (25-34); MEAN CORPUSCULAR HGB CONC 33 G/DL (32-36); MEAN CORPUSCULAR VOLUME 89 FL (80-99); MEAN PLATELET VOLUME 8.6 FL (7.4-10.4); MONOCYTES # (AUTO) 0.5 X 10^3 (0.0-1.0); MONOCYTES % (AUTO) 10 % (0-12); NEUTROPHILS # (AUTO) 3.5 X 10^3 (1.8-7.8); NEUTROPHILS % (AUTO) 73 % (42-75); PLATELET COUNT 246 10^3/uL (130-400); RED CELL DISTRIBUTION WIDTH 14.9 % (10.0-14.5); WHITE BLOOD COUNT 4.8 10^3/uL (4.3-11.0)
[2019-01-08 09:28] LABS: ALANINE AMINOTRANSFERASE 28 U/L (0-55); ALBUMIN 4.3 GM/DL (3.2-4.5); ALKALINE PHOSPHATASE 74 U/L (40-136); BILIRUBIN,TOTAL 0.3 MG/DL (0.1-1.0); BUN/CREATININE RATIO 20; CARBON DIOXIDE 23 MMOL/L (21-32); CHLORIDE 106 MMOL/L (98-107); CREATININE SERUM 0.82 MG/DL (0.60-1.30); GFR ESTIMATED > 60; GLUCOSE 102 MG/DL (70-105); POTASSIUM 4.1 MMOL/L (3.6-5.0); SODIUM 141 MMOL/L (135-145)
[2019-01-29 09:23] LABS: BASOPHILS % (AUTO) 1 % (0-10); EOSINOPHILS # (AUTO) 0.4 10^3/uL (0.0-0.3); EOSINOPHILS % (AUTO) 6 % (0-10); HEMATOCRIT 40 % (35-52); HEMOGLOBIN 13.5 G/DL (11.5-16.0); LYMPHOCYTES # (AUTO) 0.7 X 10^3 (1.0-4.0); LYMPHOCYTES % (AUTO) 12 % (12-44); MEAN CORPUSCULAR HEMOGLOBIN 30 PG (25-34); MEAN CORPUSCULAR HGB CONC 34 G/DL (32-36); MEAN CORPUSCULAR VOLUME 88 FL (80-99); MEAN PLATELET VOLUME 8.2 FL (7.4-10.4); MONOCYTES # (AUTO) 0.4 X 10^3 (0.0-1.0); MONOCYTES % (AUTO) 7 % (0-12); NEUTROPHILS # (AUTO) 4.2 X 10^3 (1.8-7.8); NEUTROPHILS % (AUTO) 75 % (42-75); PLATELET COUNT 272 10^3/uL (130-400); RED CELL DISTRIBUTION WIDTH 14.4 % (10.0-14.5); WHITE BLOOD COUNT 5.6 10^3/uL (4.3-11.0)
[2019-01-29 09:54] LABS: ALANINE AMINOTRANSFERASE 20 U/L (0-55); ALBUMIN 4.5 GM/DL (3.2-4.5); ALKALINE PHOSPHATASE 80 U/L (40-136); BILIRUBIN,TOTAL 0.4 MG/DL (0.1-1.0); BUN/CREATININE RATIO 24; CALCIUM 10.2 MG/DL (8.5-10.1); CARBON DIOXIDE 21 MMOL/L (21-32); CHLORIDE 108 MMOL/L (98-107); CREATININE SERUM 0.85 MG/DL (0.60-1.30); GFR ESTIMATED > 60; GLUCOSE 101 MG/DL (70-105); POTASSIUM 4.1 MMOL/L (3.6-5.0); SODIUM 143 MMOL/L (135-145); TOTAL PROTEIN 7.2 GM/DL (6.4-8.2)
[~2019-02-19] VITALS: Ht 173.4 cm; Wt 83.0 kg
[~2019-02-19 09:11] MED LIST changes: +NS IV 500 ML (CANCER CENTER) 500 ML IV SCH; +NS IV SCH; +TRASTUZUMAB IV SCH
[2019-02-19 09:46] LABS: BASOPHILS % (AUTO) 1 % (0-10); EOSINOPHILS # (AUTO) 0.7 10^3/uL (0.0-0.3); EOSINOPHILS % (AUTO) 12 % (0-10); HEMATOCRIT 39 % (35-52); HEMOGLOBIN 12.8 G/DL (11.5-16.0); LYMPHOCYTES # (AUTO) 0.8 X 10^3 (1.0-4.0); LYMPHOCYTES % (AUTO) 14 % (12-44); MEAN CORPUSCULAR HEMOGLOBIN 30 PG (25-34); MEAN CORPUSCULAR HGB CONC 33 G/DL (32-36); MEAN CORPUSCULAR VOLUME 89 FL (80-99); MEAN PLATELET VOLUME 8.6 FL (7.4-10.4); MONOCYTES # (AUTO) 0.4 X 10^3 (0.0-1.0); MONOCYTES % (AUTO) 7 % (0-12); NEUTROPHILS # (AUTO) 3.7 X 10^3 (1.8-7.8); NEUTROPHILS % (AUTO) 67 % (42-75); PLATELET COUNT 237 10^3/uL (130-400); RED CELL DISTRIBUTION WIDTH 14.1 % (10.0-14.5); WHITE BLOOD COUNT 5.5 10^3/uL (4.3-11.0)
[2019-02-19 10:13] LABS: ALANINE AMINOTRANSFERASE 22 U/L (0-55); ALBUMIN 4.1 GM/DL (3.2-4.5); ALKALINE PHOSPHATASE 84 U/L (40-136); BILIRUBIN,TOTAL 0.3 MG/DL (0.1-1.0); BUN/CREATININE RATIO 21; CALCIUM 9.4 MG/DL (8.5-10.1); CARBON DIOXIDE 24 MMOL/L (21-32); CHLORIDE 109 MMOL/L (98-107); GFR ESTIMATED > 60; GLUCOSE 110 MG/DL (70-105); POTASSIUM 4.2 MMOL/L (3.6-5.0); SODIUM 141 MMOL/L (135-145); TOTAL PROTEIN 6.7 GM/DL (6.4-8.2)
== END 2019-03-18 | disposition home or self-care (01) ==
LOC: ONC 09:11
PROVIDERS: ATTEND Internal Medicine Hematology & Oncology
DX: Z51.11 Encounter for antineoplastic chemotherapy (principal); C50.411 Malignant neoplasm of upper-outer quadrant of right female breast; C77.3 Secondary and unspecified malignant neoplasm of axilla and upper limb lymph nodes; G43.909 Migraine, unspecified, not intractable, without status migrainosus; K59.00 Constipation, unspecified; Z17.1 Estrogen receptor negative status [ER-]; Z79.899 Other long term (current) drug therapy; Z76.89 Persons encountering health services in other specified circumstances
CPT/HCPCS: 36415; 36591; 80053; 85025; 96413

== ENCOUNTER 2019-05-15 08:50 | Outpatient (RCR) | payer BC ==
[2019-03-27 10:46] LABS: BILIRUBIN,URINE NEGATIVE (NEGATIVE); CLARITY,URINE CLEAR; COLOR,URINE YELLOW; GLUCOSE, URINE (UA) NEGATIVE (NEGATIVE); KETONES,URINE NEGATIVE (NEGATIVE); LEUKOCYTE ESTERASE ,URINE NEGATIVE (NEGATIVE); NITRITE,URINE NEGATIVE (NEGATIVE); PH,URINE 7 (5-9); PROTEIN,URINE NEGATIVE (NEGATIVE); UROBILINOGEN,URINE NORMAL (NORMAL)
[2019-03-27 10:53] LABS: BACTERIA,URINE NEGATIVE /HPF; RBC,URINE RARE /HPF; SQUAMOUS EPITHELIAL CELL,UR RARE /HPF; WBC,URINE RARE /HPF
[~2019-05-15 08:50] MED LIST changes: -NS IV 500 ML (CANCER CENTER) 500 ML IV SCH; -NS IV SCH; -TRASTUZUMAB IV SCH
[2019-05-15 09:11] LABS: BASOPHILS % (AUTO) 1 % (0-10); EOSINOPHILS # (AUTO) 0.1 10^3/uL (0.0-0.3); EOSINOPHILS % (AUTO) 2 % (0-10); HEMATOCRIT 42 % (35-52); HEMOGLOBIN 13.7 G/DL (11.5-16.0); LYMPHOCYTES # (AUTO) 0.8 X 10^3 (1.0-4.0); LYMPHOCYTES % (AUTO) 18 % (12-44); MEAN CORPUSCULAR HEMOGLOBIN 30 PG (25-34); MEAN CORPUSCULAR HGB CONC 33 G/DL (32-36); MEAN CORPUSCULAR VOLUME 90 FL (80-99); MEAN PLATELET VOLUME 8.4 FL (7.4-10.4); MONOCYTES # (AUTO) 0.4 X 10^3 (0.0-1.0); MONOCYTES % (AUTO) 8 % (0-12); NEUTROPHILS # (AUTO) 3.3 X 10^3 (1.8-7.8); NEUTROPHILS % (AUTO) 70 % (42-75); PLATELET COUNT 253 10^3/uL (130-400); RED CELL DISTRIBUTION WIDTH 14.8 % (10.0-14.5); WHITE BLOOD COUNT 4.6 10^3/uL (4.3-11.0)
[2019-05-15 09:36] LABS: ALANINE AMINOTRANSFERASE 22 U/L (0-55); ALBUMIN 4.4 GM/DL (3.2-4.5); ALKALINE PHOSPHATASE 85 U/L (40-136); BILIRUBIN,TOTAL 0.7 MG/DL (0.1-1.0); BUN/CREATININE RATIO 19; CALCIUM 9.8 MG/DL (8.5-10.1); CARBON DIOXIDE 28 MMOL/L (21-32); CHLORIDE 106 MMOL/L (98-107); CREATININE SERUM 0.85 MG/DL (0.60-1.30); GFR ESTIMATED > 60; GLUCOSE 105 MG/DL (70-105); POTASSIUM 4.2 MMOL/L (3.6-5.0); SODIUM 140 MMOL/L (135-145); TOTAL PROTEIN 7.3 GM/DL (6.4-8.2)
== END 2019-06-25 | disposition home or self-care (01) ==
LOC: ONC 08:50
PROVIDERS: ATTEND Internal Medicine Hematology & Oncology
DX: C50.411 Malignant neoplasm of upper-outer quadrant of right female breast (principal); C77.3 Secondary and unspecified malignant neoplasm of axilla and upper limb lymph nodes; G43.909 Migraine, unspecified, not intractable, without status migrainosus; K59.00 Constipation, unspecified; Z17.1 Estrogen receptor negative status [ER-]; Z79.899 Other long term (current) drug therapy; Z76.89 Persons encountering health services in other specified circumstances; R82.998 Other abnormal findings in urine; Z45.2 Encounter for adjustment and management of vascular access device
CPT/HCPCS: 36591; 80053; 81000; 85025; 87088; 96523

== ENCOUNTER → 2019-08-20 | Outpatient (CLI) | payer BC ==
--- NOTE | 2019-08-20 14:14 | Diagnostic Imaging Report ---
INDICATION: Six-month followup after lumpectomy. Comparison made with prior examination of 02/13/2019, 07/25/2018, and 02/08/2018 The current study was also evaluated with a Computer Aided Detection (CAD) system. 3-D Tomographic imaging was also performed. FINDINGS: There are stable post-therapeutic changes in the upper outer right breast. There is a surgical clip. There are a few benign type calcifications. The fibroglandular tissues otherwise heterogeneously dense. There is no new dominant mass, spiculated lesion or suspicious calcification identified. IMPRESSION: Category 2 benign. ACR BI-RADS Category 2: Benign findings. Result letter will be mailed to the patient. Note: At least 10% of breast cancer is not imaged by mammography. Dictated by: Dictated on workstation # [id number]
== END ==
LOC: RAD 13:48
PROVIDERS: ATTEND Nurse Practitioner Adult Health
DX: C50.411 Malignant neoplasm of upper-outer quadrant of right female breast (principal); C77.3 Secondary and unspecified malignant neoplasm of axilla and upper limb lymph nodes; R92.8 Other abnormal and inconclusive findings on diagnostic imaging of breast; Z90.10 Acquired absence of unspecified breast and nipple

== ENCOUNTER 2019-09-18 09:07 | Outpatient (RCR) | payer BC ==
[2019-08-07 09:18] LABS: BASOPHILS % (AUTO) 1 % (0-10); EOSINOPHILS # (AUTO) 0.1 10^3/uL (0.0-0.3); EOSINOPHILS % (AUTO) 1 % (0-10); HEMATOCRIT 42 % (35-52); HEMOGLOBIN 13.8 G/DL (11.5-16.0); LYMPHOCYTES # (AUTO) 1.2 X 10^3 (1.0-4.0); LYMPHOCYTES % (AUTO) 22 % (12-44); MEAN CORPUSCULAR HEMOGLOBIN 30 PG (25-34); MEAN CORPUSCULAR HGB CONC 33 G/DL (32-36); MEAN CORPUSCULAR VOLUME 90 FL (80-99); MEAN PLATELET VOLUME 8.8 FL (7.4-10.4); MONOCYTES # (AUTO) 0.3 X 10^3 (0.0-1.0); MONOCYTES % (AUTO) 6 % (0-12); NEUTROPHILS # (AUTO) 3.8 X 10^3 (1.8-7.8); NEUTROPHILS % (AUTO) 71 % (42-75); PLATELET COUNT 253 10^3/uL (130-400); RED CELL DISTRIBUTION WIDTH 14.7 % (10.0-14.5); WHITE BLOOD COUNT 5.4 10^3/uL (4.3-11.0)
[2019-08-07 09:43] LABS: ALANINE AMINOTRANSFERASE 19 U/L (0-55); ALBUMIN 4.4 GM/DL (3.2-4.5); ALKALINE PHOSPHATASE 83 U/L (40-136); BILIRUBIN,TOTAL 0.4 MG/DL (0.1-1.0); BUN/CREATININE RATIO 19; CALCIUM 9.4 MG/DL (8.5-10.1); CARBON DIOXIDE 23 MMOL/L (21-32); CHLORIDE 107 MMOL/L (98-107); CREATININE SERUM 0.78 MG/DL (0.60-1.30); GFR ESTIMATED > 60; GLUCOSE 101 MG/DL (70-105); POTASSIUM 4.2 MMOL/L (3.6-5.0); SODIUM 140 MMOL/L (135-145); TOTAL PROTEIN 7.1 GM/DL (6.4-8.2)
== END 2019-09-24 | disposition home or self-care (01) ==
LOC: ONC 09:07
PROVIDERS: ATTEND Internal Medicine Hematology & Oncology
DX: C50.411 Malignant neoplasm of upper-outer quadrant of right female breast (principal); C77.3 Secondary and unspecified malignant neoplasm of axilla and upper limb lymph nodes; Z79.899 Other long term (current) drug therapy; Z76.89 Persons encountering health services in other specified circumstances; Z45.2 Encounter for adjustment and management of vascular access device
CPT/HCPCS: 36591; 80053; 85025; 96523

== ENCOUNTER 2020-01-20 08:48 | Outpatient (RCR) | payer BC ==
[2019-10-28 09:21] LABS: BASOPHILS % (AUTO) 0 % (0-10); EOSINOPHILS # (AUTO) 0.1 10^3/uL (0.0-0.3); EOSINOPHILS % (AUTO) 2 % (0-10); HEMATOCRIT 42 % (35-52); HEMOGLOBIN 13.6 G/DL (11.5-16.0); LYMPHOCYTES % (AUTO) 23 % (12-44); MEAN CORPUSCULAR HEMOGLOBIN 29 PG (25-34); MEAN CORPUSCULAR HGB CONC 33 G/DL (32-36); MEAN CORPUSCULAR VOLUME 90 FL (80-99); MEAN PLATELET VOLUME 8.5 FL (7.4-10.4); MONOCYTES # (AUTO) 0.5 X 10^3 (0.0-1.0); MONOCYTES % (AUTO) 10 % (0-12); NEUTROPHILS # (AUTO) 2.8 X 10^3 (1.8-7.8); NEUTROPHILS % (AUTO) 64 % (42-75); PLATELET COUNT 245 10^3/uL (130-400); RED CELL DISTRIBUTION WIDTH 14.5 % (10.0-14.5); WHITE BLOOD COUNT 4.5 10^3/uL (4.3-11.0)
[2019-10-28 09:41] LABS: ALANINE AMINOTRANSFERASE 24 U/L (0-55); ALBUMIN 4.3 GM/DL (3.2-4.5); ALKALINE PHOSPHATASE 75 U/L (40-136); BILIRUBIN,TOTAL 0.6 MG/DL (0.1-1.0); BUN/CREATININE RATIO 22; CALCIUM 9.5 MG/DL (8.5-10.1); CARBON DIOXIDE 26 MMOL/L (21-32); CHLORIDE 108 MMOL/L (98-107); CREATININE SERUM 0.79 MG/DL (0.60-1.30); GFR ESTIMATED > 60; GLUCOSE 98 MG/DL (70-105); SODIUM 142 MMOL/L (135-145); TOTAL PROTEIN 7.1 GM/DL (6.4-8.2)
[2020-01-20 09:08] LABS: BASOPHILS % (AUTO) 1 % (0-10); EOSINOPHILS # (AUTO) 0.1 10^3/uL (0.0-0.3); EOSINOPHILS % (AUTO) 1 % (0-10); HEMATOCRIT 41 % (35-52); HEMOGLOBIN 13.5 G/DL (11.5-16.0); LYMPHOCYTES # (AUTO) 1.2 X 10^3 (1.0-4.0); LYMPHOCYTES % (AUTO) 18 % (12-44); MEAN CORPUSCULAR HEMOGLOBIN 30 PG (25-34); MEAN CORPUSCULAR HGB CONC 33 G/DL (32-36); MEAN CORPUSCULAR VOLUME 90 FL (80-99); MEAN PLATELET VOLUME 8.7 FL (7.4-10.4); MONOCYTES # (AUTO) 0.5 X 10^3 (0.0-1.0); MONOCYTES % (AUTO) 8 % (0-12); NEUTROPHILS # (AUTO) 4.8 X 10^3 (1.8-7.8); NEUTROPHILS % (AUTO) 72 % (42-75); PLATELET COUNT 265 10^3/uL (130-400); RED CELL DISTRIBUTION WIDTH 14.7 % (10.0-14.5); WHITE BLOOD COUNT 6.7 10^3/uL (4.3-11.0)
[2020-01-20 09:22] LABS: ALANINE AMINOTRANSFERASE 22 U/L (0-55); ALBUMIN 4.2 GM/DL (3.2-4.5); ALKALINE PHOSPHATASE 68 U/L (40-136); BILIRUBIN,TOTAL 0.5 MG/DL (0.1-1.0); BUN/CREATININE RATIO 27; CALCIUM 9.5 MG/DL (8.5-10.1); CARBON DIOXIDE 22 MMOL/L (21-32); CHLORIDE 110 MMOL/L (98-107); CREATININE SERUM 0.83 MG/DL (0.60-1.30); GFR ESTIMATED > 60; GLUCOSE 105 MG/DL (70-105); SODIUM 143 MMOL/L (135-145); TOTAL PROTEIN 7.1 GM/DL (6.4-8.2)
== END 2020-01-26 | disposition home or self-care (01) ==
LOC: ONC 08:48
PROVIDERS: ATTEND Internal Medicine Hematology & Oncology
DX: C50.411 Malignant neoplasm of upper-outer quadrant of right female breast (principal); C77.3 Secondary and unspecified malignant neoplasm of axilla and upper limb lymph nodes; Z79.899 Other long term (current) drug therapy; Z76.89 Persons encountering health services in other specified circumstances
CPT/HCPCS: 36591; 80053; 85025; 96523

== ENCOUNTER → 2020-02-14 | Outpatient (CLI) | payer BC ==
--- NOTE | 2020-02-14 13:25 | Diagnostic Imaging Report ---
PROCEDURE: MRI lumbar spine. TECHNIQUE: Multiplanar, multisequence MRI of the lumbar spine was performed without contrast. INDICATION: Low back pain. History of breast cancer. FINDINGS: No geographic marrow lesion is found. There are no findings suggestive of MRI evidence for bony metastasis to the lumbar spine at this nonenhanced exam. Lumbar marrow signal intensity unremarkable. Lumbar statures are normal and the alignment anatomic. There is slight desiccation and slight generalized bulging of discs at L4-L5 and L5-S1, but no focal herniation. The patient's lumbar spinal canal, neural foramina, and lateral recesses are all widely patent throughout. No ligamentous disruption. No intradural abnormality. The conus appears normal. The nerves of the cauda equina are normally dispersed. IMPRESSION: Very slight lower lumbar degenerative disc desiccation, but no lumbar stenosis, fracture, malalignment, or marrow replacing lesion. Dictated by: Dictated on workstation # [id number]
== END ==
LOC: RAD 11:53
PROVIDERS: ATTEND Physician Assistant
DX: M51.36 Other intervertebral disc degeneration, lumbar region (principal); Z85.3 Personal history of malignant neoplasm of breast
CPT/HCPCS: 72148

== ENCOUNTER → 2020-02-20 | Outpatient (CLI) | payer BC ==
--- NOTE | 2020-02-20 10:39 | Diagnostic Imaging Report ---
INDICATION: Right breast carcinoma. CORRELATION is made with prior mammograms dating back to 2017. TECHNIQUE: 2-D and 3-D bilateral diagnostic mammography was performed with CAD. Both breasts are heterogeneously dense, limiting the sensitivity of mammography. Post-lumpectomy changes in the upper outer right breast are noted. Lumpectomy site appears stable without evidence of recurrent mass. There is a density in the medial aspect of the left breast on the CC view at mid to posterior depth. This is indeterminate. Additional views including spot compression and rolled CC views were performed. There is persistent density at this location. There are benign calcifications. No malignant appearing microcalcifications are seen. Left axilla is unremarkable. IMPRESSION: BI-RADS 0. 1. Stable postlumpectomy changes in right breast. 2. Persistent density medial left breast, mid to posterior depth. Further evaluation with ultrasound is recommended and will be performed today. Dictated by: Dictated on workstation # [id number]
--- NOTE | 2020-02-20 15:00 | Diagnostic Imaging Report ---
INDICATION: Right breast carcinoma status post lumpectomy. Patient had left breast asymmetry noted on today's mammogram. Correlation is made with the diagnostic mammogram performed earlier today. Sonographic interrogation of the inner left breast was performed. Imaging was performed from the 6-12 o'clock location. Several small cysts were present. A bilobed cyst at the 12:00 location 6 cm from the nipple measures 9 mm x 4 mm x 4 mm. Small cyst 11:00 6 cm from the nipple measures 5 mm x 4 mm. Small cyst 8:00 location 5 cm from the nipple, contains a 3 mm cyst. No concerning mass is identified. IMPRESSION: BI-RADS Category 0 1. No concerning sonographic abnormality is identified. There are several small cysts in the inner left breast. Even so, MRI of the breasts would be recommended for further evaluation of the left breast asymmetry. ACR BI-RADS Category 0: Incomplete. (Needs additional imaging evaluation). Dictated by: Dictated on workstation # [id number]
== END ==
LOC: RAD 09:31
PROVIDERS: ATTEND Nurse Practitioner Adult Health
DX: C50.911 Malignant neoplasm of unspecified site of right female breast (principal)
CPT/HCPCS: 76642; 77062; 77066

== ENCOUNTER → 2020-03-02 | Outpatient (CLI) | payer BC ==
[~2020-03-02] MED LIST changes: +GADOBUTROL 15 MMOL/15 ML (GADAVIST) VIAL IV ONE
--- NOTE | 2020-03-02 12:25 | Diagnostic Imaging Report ---
REASON FOR THE EXAMINATION: History of right breast cancer, abnormal left mammogram. COMPARISON: Correlation is made with the most recent mammogram and ultrasound from 02/20/2020 as well as additional mammogram studies dating back to 04/06/2017 and 04/03/2015. TECHNIQUE: Utilizing a 1.5 Alanis Siemens magnet, the patient was placed in a prone position with an 8-channel dedicated breast coil utilized. Axial STIR and fat sat T2 precontrasted images and axial and sagittal T1 with and without fat-sat images were obtained. Post contrast high-resolution dynamic images were also obtained. Pre and post contrasted images were then evaluated with Rouxbe for evaluation of possible angiogenesis. 8 cc of Gadavist was injected. FINDINGS: The breast tissue is heterogeneously dense. There is mild background parenchymal enhancement. RIGHT BREAST: Post lumpectomy changes are noted in the right upper outer quadrant at posterior depth at the 10 o'clock position 9 cm from the nipple with no suspicious mass or non-mass enhancement in the right breast. No MRI evidence for new or recurrent disease. Postop changes are also noted in the right axilla. LEFT BREAST: The previously noted focal asymmetry in the upper inner quadrant of the left breast at mid to posterior depth does not show any suspicious enhancement. The findings are consistent with fibroglandular tissue and fibrocystic change. In retrospect, this area appears to be similar to previous mammograms dating back to 2014. NOAH BASINS: No suspicious adenopathy in the bilateral regional noah basins. Postop changes in the right axilla. No internal mammary adenopathy. IMPRESSION: No MRI evidence for malignancy. No MRI evidence for recurrent disease in the right breast. The upper inner quadrant left breast focal asymmetry is consistent with heterogeneously dense fibroglandular tissue and fibrocystic change. This has been stable since 2014. Recommend resumption of routine annual post lumpectomy surveillance mammography per protocol. ACR BI-RADS Category 2: Benign findings. RECOMMENDATIONS: Post lumpectomy surveillance mammography. Dictated by: Dictated on workstation # [id number]
== END ==
LOC: RAD 08:23
PROVIDERS: ATTEND Nurse Practitioner Adult Health
DX: C50.411 Malignant neoplasm of upper-outer quadrant of right female breast (principal); R92.2 Inconclusive mammogram; Z98.890 Other specified postprocedural states
CPT/HCPCS: 77049

== ENCOUNTER 2020-04-20 09:13 | Outpatient (RCR) | payer BC ==
[~2020-04-20 09:13] MED LIST changes: -GADOBUTROL 15 MMOL/15 ML (GADAVIST) VIAL IV ONE
[2020-04-20 09:43] LABS: BASOPHILS % (AUTO) 1 % (0-10); EOSINOPHILS # (AUTO) 0.1 10^3/uL (0.0-0.3); EOSINOPHILS % (AUTO) 2 % (0-10); HEMATOCRIT 40 % (35-52); HEMOGLOBIN 13.4 G/DL (11.5-16.0); LYMPHOCYTES # (AUTO) 1.3 X 10^3 (1.0-4.0); LYMPHOCYTES % (AUTO) 24 % (12-44); MEAN CORPUSCULAR HEMOGLOBIN 30 PG (25-34); MEAN CORPUSCULAR HGB CONC 34 G/DL (32-36); MEAN CORPUSCULAR VOLUME 88 FL (80-99); MEAN PLATELET VOLUME 8.7 FL (7.4-10.4); MONOCYTES # (AUTO) 0.4 X 10^3 (0.0-1.0); MONOCYTES % (AUTO) 7 % (0-12); NEUTROPHILS # (AUTO) 3.7 X 10^3 (1.8-7.8); NEUTROPHILS % (AUTO) 66 % (42-75); PLATELET COUNT 274 10^3/uL (130-400); WHITE BLOOD COUNT 5.5 10^3/uL (4.3-11.0)
[2020-04-20 10:01] LABS: ALANINE AMINOTRANSFERASE 21 U/L (0-55); ALBUMIN 4.3 GM/DL (3.2-4.5); ALKALINE PHOSPHATASE 67 U/L (40-136); BILIRUBIN,TOTAL 0.5 MG/DL (0.1-1.0); BUN/CREATININE RATIO 25; CALCIUM 9.2 MG/DL (8.5-10.1); CARBON DIOXIDE 22 MMOL/L (21-32); CHLORIDE 109 MMOL/L (98-107); CREATININE SERUM 0.75 MG/DL (0.60-1.30); GFR ESTIMATED > 60; GLUCOSE 108 MG/DL (70-105); SODIUM 139 MMOL/L (135-145); TOTAL PROTEIN 7.2 GM/DL (6.4-8.2)
== END 2020-05-31 | disposition home or self-care (01) ==
LOC: ONC 09:13
PROVIDERS: ATTEND Internal Medicine Hematology & Oncology
DX: Z45.2 Encounter for adjustment and management of vascular access device (principal); C50.411 Malignant neoplasm of upper-outer quadrant of right female breast; C77.3 Secondary and unspecified malignant neoplasm of axilla and upper limb lymph nodes; Z76.89 Persons encountering health services in other specified circumstances; Z79.899 Other long term (current) drug therapy
CPT/HCPCS: 36591; 80053; 85025; 96523

== ENCOUNTER 2020-08-24 10:46 | Outpatient (RCR) | payer BC ==
[2020-07-13 09:39] LABS: BASOPHILS % (AUTO) 1 % (0-10); EOSINOPHILS # (AUTO) 0.1 10^3/uL (0.0-0.3); EOSINOPHILS % (AUTO) 2 % (0-10); HEMATOCRIT 43 % (35-52); HEMOGLOBIN 14.2 g/dL (11.5-16.0); LYMPHOCYTES # (AUTO) 1.8 10^3/uL (1.0-4.0); LYMPHOCYTES % (AUTO) 25 % (12-44); MEAN CORPUSCULAR HEMOGLOBIN 30 pg (25-34); MEAN CORPUSCULAR HGB CONC 33 g/dL (32-36); MEAN CORPUSCULAR VOLUME 90 fL (80-99); MEAN PLATELET VOLUME 8.4 fL (9.0-12.2); MONOCYTES # (AUTO) 0.6 10^3/uL (0.0-1.0); MONOCYTES % (AUTO) 8 % (0-12); NEUTROPHILS # (AUTO) 4.6 10^3/uL (1.8-7.8); NEUTROPHILS % (AUTO) 65 % (42-75); PLATELET COUNT 253 10^3/uL (130-400)
[2020-07-13 09:56] LABS: ALANINE AMINOTRANSFERASE 26 U/L (0-55); ALBUMIN 4.4 GM/DL (3.2-4.5); ALKALINE PHOSPHATASE 76 U/L (40-136); BILIRUBIN,TOTAL 0.5 MG/DL (0.1-1.0); BUN/CREATININE RATIO 22; CALCIUM 9.2 MG/DL (8.5-10.1); CARBON DIOXIDE 22 MMOL/L (21-32); CHLORIDE 106 MMOL/L (98-107); CREATININE SERUM 0.83 MG/DL (0.60-1.30); GFR ESTIMATED > 60; GLUCOSE 100 MG/DL (70-105); POTASSIUM 4.1 MMOL/L (3.6-5.0); SODIUM 139 MMOL/L (135-145); TOTAL PROTEIN 7.4 GM/DL (6.4-8.2)
== END 2020-08-30 | disposition home or self-care (01) ==
LOC: ONC 10:46
PROVIDERS: ATTEND Internal Medicine Hematology & Oncology
DX: Z45.2 Encounter for adjustment and management of vascular access device (principal); C50.411 Malignant neoplasm of upper-outer quadrant of right female breast; C77.3 Secondary and unspecified malignant neoplasm of axilla and upper limb lymph nodes; Z76.89 Persons encountering health services in other specified circumstances; Z79.899 Other long term (current) drug therapy; Z92.21 Personal history of antineoplastic chemotherapy; Z92.3 Personal history of irradiation; Z90.11 Acquired absence of right breast and nipple
CPT/HCPCS: 36591; 80053; 85025; 96523

== ENCOUNTER 2020-12-29 09:29 | Outpatient (RCR) | payer BC ==
[2020-10-05 10:15] LABS: BASOPHILS % (AUTO) 1 % (0-10); EOSINOPHILS # (AUTO) 0.1 10^3/uL (0.0-0.3); EOSINOPHILS % (AUTO) 2 % (0-10); HEMATOCRIT 42 % (35-52); HEMOGLOBIN 13.7 g/dL (11.5-16.0); LYMPHOCYTES # (AUTO) 1.2 X 10^3 (1.0-4.0); LYMPHOCYTES % (AUTO) 20 % (12-44); MEAN CORPUSCULAR HEMOGLOBIN 29 pg (25-34); MEAN CORPUSCULAR HGB CONC 33 g/dL (32-36); MEAN CORPUSCULAR VOLUME 90 fL (80-99); MEAN PLATELET VOLUME 8.3 fL (9.0-12.2); MONOCYTES # (AUTO) 0.3 X 10^3 (0.0-1.0); MONOCYTES % (AUTO) 5 % (0-12); NEUTROPHILS # (AUTO) 4.1 X 10^3 (1.8-7.8); NEUTROPHILS % (AUTO) 72 % (42-75); PLATELET COUNT 252 10^3/uL (130-400); WHITE BLOOD COUNT 5.7 10^3/uL (4.3-11.0)
[2020-10-05 10:36] LABS: ALANINE AMINOTRANSFERASE 20 U/L (0-55); ALBUMIN 4.2 GM/DL (3.2-4.5); ALKALINE PHOSPHATASE 69 U/L (40-136); BILIRUBIN,TOTAL 0.4 MG/DL (0.1-1.0); BUN/CREATININE RATIO 18; CALCIUM 9.1 MG/DL (8.5-10.1); CARBON DIOXIDE 20 MMOL/L (21-32); CHLORIDE 110 MMOL/L (98-107); CREATININE SERUM 0.78 MG/DL (0.60-1.30); GFR ESTIMATED > 60; GLUCOSE 104 MG/DL (70-105); SODIUM 142 MMOL/L (135-145)
[2020-12-29 09:55] LABS: BASOPHILS # (AUTO) 0.1 10^3/uL (0.0-0.1); BASOPHILS % (AUTO) 1 % (0-10); EOSINOPHILS # (AUTO) 0.1 10^3/uL (0.0-0.3); EOSINOPHILS % (AUTO) 1 % (0-10); HEMATOCRIT 43 % (35-52); LYMPHOCYTES # (AUTO) 1.3 10^3/uL (1.0-4.0); LYMPHOCYTES % (AUTO) 20 % (12-44); MEAN CORPUSCULAR HEMOGLOBIN 30 pg (25-34); MEAN CORPUSCULAR HGB CONC 33 g/dL (32-36); MEAN CORPUSCULAR VOLUME 92 fL (80-99); MEAN PLATELET VOLUME 8.8 fL (9.0-12.2); MONOCYTES # (AUTO) 0.5 10^3/uL (0.0-1.0); MONOCYTES % (AUTO) 7 % (0-12); NEUTROPHILS # (AUTO) 4.5 10^3/uL (1.8-7.8); NEUTROPHILS % (AUTO) 71 % (42-75); PLATELET COUNT 239 10^3/uL (130-400); WHITE BLOOD COUNT 6.4 10^3/uL (4.3-11.0)
[2020-12-29 10:17] LABS: ALANINE AMINOTRANSFERASE 31 U/L (0-55); ALBUMIN 4.3 GM/DL (3.2-4.5); ALKALINE PHOSPHATASE 62 U/L (40-136); BILIRUBIN,TOTAL 0.4 MG/DL (0.1-1.0); BUN/CREATININE RATIO 21; CALCIUM 9.4 MG/DL (8.5-10.1); CARBON DIOXIDE 21 MMOL/L (21-32); CHLORIDE 107 MMOL/L (98-107); CREATININE SERUM 0.75 MG/DL (0.60-1.30); GFR ESTIMATED > 60; GLUCOSE 101 MG/DL (70-105); SODIUM 140 MMOL/L (135-145); TOTAL PROTEIN 7.1 GM/DL (6.4-8.2)
== END 2021-01-03 | disposition home or self-care (01) ==
LOC: ONC 09:29
PROVIDERS: ATTEND Internal Medicine Hematology & Oncology
DX: Z45.2 Encounter for adjustment and management of vascular access device (principal); C50.411 Malignant neoplasm of upper-outer quadrant of right female breast; C77.3 Secondary and unspecified malignant neoplasm of axilla and upper limb lymph nodes; Z76.89 Persons encountering health services in other specified circumstances; Z79.899 Other long term (current) drug therapy; Z92.21 Personal history of antineoplastic chemotherapy; Z92.3 Personal history of irradiation; Z90.11 Acquired absence of right breast and nipple
CPT/HCPCS: 80053; 85025; G0463; 36591; 96523

== ENCOUNTER → 2021-02-25 | Outpatient (CLI) | payer BC ==
--- NOTE | 2021-02-25 10:45 | Diagnostic Imaging Report ---
Indication: Right breast carcinoma. Correlation is made with prior mammograms from 02/20/2020, 08/20/2019 and 02/13/2019. 2-D and 3-D bilateral diagnostic mammography was performed with CAD. Both breasts are heterogeneously dense, limiting the sensitivity of mammography. Post therapeutic changes in the upper outer right breast posterior depth are again noted. Lumpectomy site remains stable. No new mass is detected. No malignant appearing microcalcifications are seen. Biopsy clip in the upper left breast remains in place. Left breast remains stable. Axillae are stable. No suspicious microcalcifications are seen. IMPRESSION: BI-RADS Category 2 Stable post-therapeutic changes when compared with prior mammograms. No mammographic features suspicious for malignancy are identified. ACR BI-RADS Category 2: Benign findings. Result letter will be mailed to the patient. Note: At least 10% of breast cancer is not imaged by mammography. Dictated by: Dictated on workstation # [id number]
== END ==
LOC: RAD 08:34
PROVIDERS: ATTEND Nurse Practitioner Adult Health
DX: C50.411 Malignant neoplasm of upper-outer quadrant of right female breast (principal); C77.3 Secondary and unspecified malignant neoplasm of axilla and upper limb lymph nodes; Z92.21 Personal history of antineoplastic chemotherapy
CPT/HCPCS: 77066; 93306; G0279; 77062

== ENCOUNTER 2021-03-24 09:08 | Outpatient (RCR) | payer BC ==
[2021-03-24 09:40] LABS: BASOPHILS % (AUTO) 1 % (0-10); EOSINOPHILS # (AUTO) 0.1 10^3/uL (0.0-0.3); EOSINOPHILS % (AUTO) 1 % (0-10); HEMATOCRIT 43 % (35-52); LYMPHOCYTES # (AUTO) 1.4 10^3/uL (1.0-4.0); LYMPHOCYTES % (AUTO) 19 % (12-44); MEAN CORPUSCULAR HEMOGLOBIN 30 pg (25-34); MEAN CORPUSCULAR HGB CONC 33 g/dL (32-36); MEAN CORPUSCULAR VOLUME 91 fL (80-99); MEAN PLATELET VOLUME 8.9 fL (9.0-12.2); MONOCYTES # (AUTO) 0.5 10^3/uL (0.0-1.0); MONOCYTES % (AUTO) 8 % (0-12); NEUTROPHILS % (AUTO) 71 % (42-75); PLATELET COUNT 266 10^3/uL (130-400); WHITE BLOOD COUNT 7.1 10^3/uL (4.3-11.0)
[2021-03-24 09:55] LABS: ALANINE AMINOTRANSFERASE 26 U/L (0-55); ALBUMIN 4.3 GM/DL (3.2-4.5); ALKALINE PHOSPHATASE 65 U/L (40-136); BILIRUBIN,TOTAL 0.7 MG/DL (0.1-1.0); BUN/CREATININE RATIO 22; CALCIUM 9.4 MG/DL (8.5-10.1); CARBON DIOXIDE 24 MMOL/L (21-32); CHLORIDE 106 MMOL/L (98-107); CREATININE SERUM 0.85 MG/DL (0.60-1.30); GFR ESTIMATED > 60; GLUCOSE 104 MG/DL (70-105); POTASSIUM 4.1 MMOL/L (3.6-5.0); SODIUM 139 MMOL/L (135-145); TOTAL PROTEIN 7.3 GM/DL (6.4-8.2)
== END 2021-03-31 08:27 | disposition home or self-care (01) ==
LOC: ONC 09:08
PROVIDERS: ATTEND Internal Medicine Hematology & Oncology
DX: Z45.2 Encounter for adjustment and management of vascular access device (principal); C50.411 Malignant neoplasm of upper-outer quadrant of right female breast; C77.3 Secondary and unspecified malignant neoplasm of axilla and upper limb lymph nodes; Z92.21 Personal history of antineoplastic chemotherapy; Z92.3 Personal history of irradiation; Z90.11 Acquired absence of right breast and nipple; Z98.890 Other specified postprocedural states
CPT/HCPCS: 36591; 80053; 85025; 96523

== ENCOUNTER 2021-05-27 05:35 | Outpatient (CLI) | payer BC ==
[~2021-05-27] VITALS: Ht 177 cm; Wt 80.9 kg
[2021-05-27] MEDS ORDERED: UBRO100T PO (13:25)
[2021-05-27] MEDS ORDERED: LIFI1DRO OP (13:25)
== END 2021-05-27 13:35 | disposition home or self-care (01) ==
LOC: PREOP 05:35
PROVIDERS: ATTEND Surgery
DX: Z01.818 Encounter for other preprocedural examination (principal)

== ENCOUNTER 2021-06-03 10:20 | Day surgery (SDC) | payer BC ==
[~2021-06-03] VITALS: Ht 177 cm; Wt 80.9 kg
[~2021-06-03 10:20] MED LIST changes: +LIFI1DRO OP; +UBRO100T PO
[2021-06-03] MEDS ORDERED: ceFAZolin INJECTION 1,000 MG in WATER (STERILE) FOR INJECTION 10 ML IV ONE (10:30)
[2021-06-03] MEDS: LACTATED RINGERS 1,000 ML IV PRN ×2 (11:00→11:37)
[2021-06-03] MEDS ORDERED: ONDANSETRON 4 MG/2 ML (SDV) Z0FRAN ONE (11:34)
[2021-06-03] MEDS ORDERED: proPOfol 200 MG/20 ML (DIPRIVAN) VIAL IV ONE ×2 (11:42→12:31)
[2021-06-03] MEDS ORDERED: LIDOCAINE PF 2% 5 ML (XYLOCAINE) VIAL ONE (11:42)
[2021-06-03] MEDS ORDERED: MIDAZOLAM 2 MG/2 ML (VERSED) VIAL ONE (11:42)
[2021-06-03] MEDS ORDERED: ONDANSETRON 4 MG/2 ML (SDV) Z0FRAN IVP ONE (11:45)
[2021-06-03] MEDS ORDERED: LIDOCAINE/EPI 1%-1:100,000 (XYLOCAINE) 10 ML ONE (12:03)
--- NOTE | 2021-06-03 12:20 | Progress Note-Pre Operative ---
Pre-Operative Progress Note H&P Reviewed The H&P was reviewed, patient examined and no changes noted. Date Seen by Provider: Jun 03, 2021 Time Seen by Provider: 12:11 Date H&P Reviewed: Jun 03, 2021 Time H&P Reviewed: 12:11 Pre-Operative Diagnosis: hx breast ca ANAI WARE DO Jun 03, 2021 12:20
[2021-06-03 12:44] VITALS: BP 105/79
[2021-06-03 12:50] VITALS: BP 115/74
--- NOTE | 2021-06-03 12:50 | Anesthesia-General Post-Op ---
MAC Patient Condition Mental Status/LOC: Same as Preop Cardiovascular: Satisfactory Nausea/Vomiting: Absent Respiratory: Satisfactory Pain: Controlled Complications: Absent Post Op Complications Complications None Follow Up Care/Instructions Patient Instructions None needed. Anesthesiology Discharge Order Discharge Order Patient is doing well, no complaints, stable vital signs, no apparent adverse anesthesia problems. No complications reported per nursing. MODESTA MORRIS CRNA Jun 03, 2021 12:50
[2021-06-03 13:00] VITALS: BP 109/71
[2021-06-03] MEDS ORDERED: fentaNYL INJ 100 MCG/2 ML AMP IVP ONE (13:00)
[2021-06-03] MEDS ORDERED: ONDANSETRON 4 MG/2 ML (SDV) Z0FRAN IVP PRN (13:00)
[2021-06-03 13:10] VITALS: BP_SYST 120; BP_SYST 136; BP_DIAS 84; BP_DIAS 94
[2021-06-03 13:40] VITALS: BP 143/81
[2021-06-03 13:50] VITALS: BP 143/81
--- NOTE | 2021-06-03 14:40 | Progress Note-Post Operative ---
Post-Operative Progess Note Surgeon (s)/Tetryl Dissolver Operator (s) Surgeon ANAI WARE DO Tetryl Dissolver Operator: na Pre-Operative Diagnosis hx breast ca Post-Operative Diagnosis same Procedure & Operative Findings Date of Procedure 06/03/21 Procedure Performed/Findings PROCEDURE: Removal of port, COMPLICATIONS: None. INDICATIONS: The patient is a 56 year-old female who had a port previously placed. Patient is ok to have port removed. The patient was explained risk and benefits of the procedure and wished to proceed with procedure. Consent was signed on the chart. PROCEDURE: The patient was taken to the operating suite and was prepped and draped in sterile fashion. A surgical pause was performed. Local anesthetic was infiltrated to the area around the port. A number 15 blade scalpel was used to make an incision. Cautery was used to dissect down to the port which was then grasped and then dissected around. The catheter was removed in its entirety. The port was then able to be dissected out of the pocket and elevated. The wound was then irrigated with copious amounts of irrigation. Hemostasis had been achieved. The subcutaneous tissues were then reapproximated using 3-0 Vicryl. The area was then washed and dried and Skin Affix placed over the incision. The patient tolerated the procedure well without complication and was taken to recovery room in stable condition. Anesthesia Type mac c local Estimated Blood Loss Estimated blood loss (mL): minimal Specimens/Packing Specimens Removed none ANAI WARE DO Jun 03, 2021 14:40
== END 2021-06-03 13:50 | disposition home or self-care (01) ==
LOC: SDC 10:20
PROVIDERS: ATTEND Surgery
DX: Z45.2 Encounter for adjustment and management of vascular access device (principal); G43.909 Migraine, unspecified, not intractable, without status migrainosus; Z85.3 Personal history of malignant neoplasm of breast; Z79.899 Other long term (current) drug therapy; Z98.890 Other specified postprocedural states
CPT/HCPCS: 87081

== ENCOUNTER 2021-06-23 09:26 | Outpatient (RCR) | payer BC ==
[2021-06-23 09:44] LABS: BASOPHILS % (AUTO) 1 % (0-10); EOSINOPHILS # (AUTO) 0.1 10^3/uL (0.0-0.3); EOSINOPHILS % (AUTO) 1 % (0-10); HEMATOCRIT 44 % (35-52); HEMOGLOBIN 14.3 g/dL (11.5-16.0); LYMPHOCYTES # (AUTO) 1.6 10^3/uL (1.0-4.0); LYMPHOCYTES % (AUTO) 23 % (12-44); MEAN CORPUSCULAR HEMOGLOBIN 30 pg (25-34); MEAN CORPUSCULAR HGB CONC 33 g/dL (32-36); MEAN CORPUSCULAR VOLUME 92 fL (80-99); MEAN PLATELET VOLUME 8.3 fL (9.0-12.2); MONOCYTES # (AUTO) 0.4 10^3/uL (0.0-1.0); MONOCYTES % (AUTO) 6 % (0-12); NEUTROPHILS # (AUTO) 4.7 10^3/uL (1.8-7.8); NEUTROPHILS % (AUTO) 69 % (42-75); PLATELET COUNT 266 10^3/uL (130-400); WHITE BLOOD COUNT 6.8 10^3/uL (4.3-11.0)
[2021-06-23 10:07] LABS: ALBUMIN 4.4 GM/DL (3.2-4.5); BILIRUBIN,TOTAL 0.6 MG/DL (0.1-1.0); CALCIUM 10.2 MG/DL (8.5-10.1); CREATININE SERUM 0.88 MG/DL (0.60-1.30); POTASSIUM 4.1 MMOL/L (3.6-5.0); TOTAL PROTEIN 7.5 GM/DL (6.4-8.2)
== END 2021-08-03 | disposition home or self-care (01) ==
LOC: ONC 09:26
PROVIDERS: ATTEND Internal Medicine Hematology & Oncology
DX: Z45.2 Encounter for adjustment and management of vascular access device (principal)
CPT/HCPCS: 80053; 85025; 96523

== ENCOUNTER → 2022-02-28 | Outpatient (CLI) | payer BC ==
--- NOTE | 2022-02-28 11:03 | Diagnostic Imaging Report ---
INDICATION: Routine screening COMPARISON is made with prior mammograms from 02/25/2021 and 02/20/2020. 2-D and 3-D bilateral screening mammography was performed with CAD. Both breasts remain heterogeneously dense, limiting the sensitivity of mammography. Post-therapeutic changes upper outer right breast are again noted. There is a slightly nodular appearance at the lumpectomy site appearing slightly more prominent than prior exam. Additional views are recommended. Minimal nodularity inferior to the lumpectomy site is also noted on the MLO view. Additional views of this region would be recommended, as well. No definite corresponding densities on the CC view are identified. The exaggerated CC view does show some nodularity medially. The left breast demonstrates a biopsy clip superiorly. No suspicious mass or malignant-appearing microcalcifications are seen. Axillae are unremarkable. IMPRESSION: BI-RADS 0 Right breast nodularity. Additional views and ultrasound are recommended for further evaluation. ACR BI-RADS Category 0: Incomplete. (Needs additional imaging evaluation). Result letter will be mailed to the patient. Note: At least 10% of breast cancer is not imaged by mammography. Dictated by: Dictated on workstation # [id number]
== END ==
LOC: RAD 09:45
PROVIDERS: ATTEND Internal Medicine Hematology & Oncology
DX: Z12.31 Encounter for screening mammogram for malignant neoplasm of breast (principal); N63.10 Unspecified lump in the right breast, unspecified quadrant; R51.9 Headache, unspecified; Z80.3 Family history of malignant neoplasm of breast
CPT/HCPCS: 77063; 77067

== ENCOUNTER → 2022-03-03 | Outpatient (CLI) | payer BC ==
--- NOTE | 2022-03-03 14:06 | Diagnostic Imaging Report ---
Indication: Right breast densities. Patient presents for additional views. Correlation is made with recent screening study from 02/28/2022. Unilateral right 2-D and 3-D diagnostic mammography was performed. This included spot compression exaggerated CC as well as spot compression MLO view and conventional 90 degree lateral views. Post therapeutic changes in the upper outer right breast are again noted. No definite nodularity is identified with additional views. Areas of nodularity on the screening study may represent superimposed tissue. Even so, sonographic interrogation of the upper outer right breast is recommended. This will be performed today. IMPRESSION: BI-RADS Category 0 Additional views fail to demonstrate a discrete mass. Even so, ultrasound examination of the upper outer right breast is recommended and will be performed today. ACR BI-RADS Category 0: Incomplete. (Needs additional imaging evaluation). Result letter will be mailed to the patient. Note: At least 10% of breast cancer is not imaged by mammography. Dictated by: Dictated on workstation # [id number]
--- NOTE | 2022-03-03 14:48 | Diagnostic Imaging Report ---
INDICATION: Right breast density. Correlation is made with the diagnostic mammogram earlier the same day as well as screening mammogram from 02/28/2022. Sonographic interrogation of the upper and upper outer aspect of the right breast was performed. There is heterogeneous scar tissue at the 9:00 location of the right breast corresponding to a known lumpectomy site. There is a small intraparenchymal lymph node at this location measuring approximately 11 mm x 4 mm x 9 mm. No other significant abnormality is seen. An area measured at the 12:00 location has appearance of a fibroglandular tissue. No fluid collections are seen. IMPRESSION: BI-RADS Category 2 No concerning sonographic findings are identified. Area of nodularity noted on screening mammogram most likely represent superimposed tissue. Patient may return to routine annual screening mammography. ACR BI-RADS Category 2: Benign findings. Result letter will be mailed to the patient. Note: At least 10% of breast cancer is not imaged by mammography. Dictated by: Dictated on workstation # [id number]
== END ==
LOC: RAD 13:15
PROVIDERS: ATTEND Internal Medicine Hematology & Oncology
DX: C50.411 Malignant neoplasm of upper-outer quadrant of right female breast (principal)
CPT/HCPCS: 76642; 77065; G0279

== ENCOUNTER → 2023-03-01 | Outpatient (CLI) | payer BC ==
--- NOTE | 2023-03-01 10:54 | Diagnostic Imaging Report ---
Indication: Routine screening. Comparison is made with prior mammogram from 02/28/2022 and 02/25/2021. 2-D and 3-D bilateral screening mammography was performed with CAD. The current study was also evaluated with a Computer Aided Detection (CAD) system. Both breasts are heterogeneously dense, limiting the sensitivity of mammography. Post-therapeutic changes in the upper outer right breast are stable. No discrete mass is identified. A biopsy changes in the upper outer left breast are noted. There are scattered benign calcifications. No malignant-appearing microcalcifications are identified. Axillae are unremarkable. IMPRESSION: BI-RADS Category 2 No mammographic features suspicious for malignancy are identified. ACR BI-RADS Category 2: Benign findings. Result letter will be mailed to the patient. Note: At least 10% of breast cancer is not imaged by mammography. Dictated by: Dictated on workstation # [id number]
== END ==
LOC: RAD 09:16
PROVIDERS: ATTEND Internal Medicine Hematology & Oncology
DX: Z12.31 Encounter for screening mammogram for malignant neoplasm of breast (principal); Z85.3 Personal history of malignant neoplasm of breast
CPT/HCPCS: 77063; 77067